=== PATIENT | female | born 1945 | race Caucasian/White ===

== ENCOUNTER → 2019-03-21 07:37 | Outpatient (CLI) | payer MEDICARE, OTHER, SELFPAY | PROVIDERS: Visit Provider Family Medicine | DX: R19.7 Diarrhea, unspecified (principal) | CPT/HCPCS: 87015; 87045; 87272; 87329; 87899 ==

== ENCOUNTER → 2019-09-06 15:47 | Outpatient (CLI) | payer MEDICARE, OTHER, SELFPAY ==
[2019-09-10 19:11] LABS: COVID19 Sendout Not Detected (Not Detected)
== END ==
PROVIDERS: Visit Provider Physician Assistant
DX: R50.9 Fever, unspecified (principal)
CPT/HCPCS: 87635

== ENCOUNTER 2019-11-27 08:49 | Inpatient (IN) | payer MEDICARE, OTHER, SELFPAY ==
[2019-11-27] VITALS (46 sets, daily range): BP systolic 68–134; BP diastolic 43–83; PULSE 81–110; RESP 13–44; TEMP 36.4–38.6; O2SAT 88–97; BMI 29.5
--- NOTE | 2019-11-27 | DI.RAD.S_ITS ---
PROCEDURE: XR ABDOMEN 1V INDICATIONS: cystoscopy placement of right ureteral stent TECHNIQUE: One fluoroscopic view of the ureteral stent. COMPARISON: [facility], CT, CT ABDOMEN PELVIS W CON, 11/27/2019, 11:45. FINDINGS: Right ureteral stent in the region of the right renal pelvis. Kidney stone seen on prior CT is not identified. IMPRESSION: Fluoroscopic guidance for ureteral stent placement. Dictated by: Diego Kwong M.D. on 11/27/2019 at 20:19 Approved by: Diego Kwong M.D. on 11/27/2019 at 20:20
--- NOTE | 2019-11-27 08:54 | DI.RAD.S_ITS ---
PROCEDURE: XR CHEST 1V INDICATIONS: shortness of breath TECHNIQUE: One view of the chest was acquired. COMPARISON: [facility], , CHEST 1 VIEW, 09/17/2014, 15:12. FINDINGS: Surgical changes and devices: None. Lungs and pleura: Lungs are clear. No pleural effusions or pneumothorax. Mediastinum: Mediastinal contours appear normal. Heart size is normal. Bones and chest wall: No suspicious bony lesions. Overlying soft tissues appear unremarkable. IMPRESSION: No acute cardiopulmonary process is evident. Dictated by: Juan Underwood M.D. on 11/27/2019 at 9:11 Approved by: Juan Underwood M.D. on 11/27/2019 at 9:11
--- NOTE | 2019-11-27 08:59 | ED_ITS ---
HPI - SOB/Dyspnea General Chief Complaint: Upper Respiratory Symptoms Stated Complaint: Shortness of breath Time Seen by Provider: 11/27/19 08:53 Source: patient, family and EMS Mode of arrival: EMS Limitations: altered mental status History of Present Illness HPI Narrative: Patient is a 74-year-old female who presents with shortness of breath and altered mental status. She has a history of asthma and she says he art disease. She apparently is face time with family this morning noticed that she had a change in mental status and was shaking all over and had a hard time breathing. EMS was able to give her some albuterol which it did help. She is able answer some questions but does seem to be a little out of it. 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 I have spoken with family and her DPOA EMS also took a picture of her POLST, which shows comfort measures only and DNR. I discussed with family they state that she definitely does not want any sort of help breathing including BiPAP and oxygen only for comfort as needed. They think she had covid in September she had all the symptoms but tested negative. And she was seen at [facility] ago Complaint: shortness of breath Related Data Home Medications Medication Instructions Recorded Confirmed [COQ10] 1 tab PO DAILY #0 09/07/16 11/27/19 duloxetine 60 mg PO QDAY #0 09/07/16 11/27/19 amlodipine 5 mg tablet 5 mg PO DAILY 09/06/19 11/27/19 duloxetine 60 mg capsule,delayed 60 mg PO DAILY 09/06/19 11/27/19 release meloxicam 15 mg disintegrating 15 mg PO DAILY 09/06/19 11/27/19 tablet pantoprazole 40 mg tablet,delayed 40 mg PO DAILY 09/06/19 11/27/19 release rosuvastatin 10 mg tablet 10 mg PO .COMPLEX 09/06/19 11/27/19 Allergies Allergy/AdvReac Type Severity Reaction Status Date / Time Penicillins Allergy Unknown UNK Verified 11/27/19 15:47 procaine [From Novocain] Allergy Unknown JITTERS Verified 11/27/19 15:47 Review of Systems Review of Systems ROS Unobtainable: Unobtainable due to medical condition Patient History Social History household members: none Smoking Status: Never smoker alcohol intake: never Smoking Status: Never smoker Exam Initial Vital Signs Initial Vital Signs: Vital Signs Temperature 101.5 F H 11/27/19 08:50 Pulse Rate 110 H 11/27/19 08:50 Respiratory Rate 44 H 11/27/19 08:50 Blood Pressure 134/73 11/27/19 08:50 Pulse Oximetry 96 11/27/19 08:50 GENERAL: Somnolent female but responsive to voice able to answer some simple questions HEENT: Head atraumatic,EOMI, pupils reactive, face symmetric, moist mucous membranes CARDIOVASCULAR: Regular rate and rhythm without murmurs, rubs or gallops. RESPIRATORY: Breath sounds equal bilaterally, no wheezes rales or rhonchi. ABDOMEN: Soft, mild tenderness in right lower quadrant EXTREMITIES: Normal range of motion, no clubbing or edema. Neurovascularly intact NEUROLOGICAL: Alert special education professor strength equal bilaterally moving all extremities SKIN: Warm, dry, no laceration, no petechiae, no rashes or lesions. Course Orders Ordered: ED Orders 11/27/19 08:53 Consult to Respiratory Therapy Evaluate & Treat EKG-12 Lead Stat 11/27/19 08:54 XR chest 1V Stat 11/27/19 09:11 CT head/brain wo con Stat 11/27/19 09:13 Arterial Blood Gas Stat 11/27/19 09:20 Blood Culture Stat Complete Blood Count AUTO DIFF Stat Comprehensive Metabolic Panel Stat Lactate (Lactic Acid) Stat Magnesium Stat NT-proBNP (BNP-Adult 18+) Stat Partial Thromboplastin Time Stat Procalcitonin Stat Prothrombin Time INR Stat Troponin & CK Cardiac Panel Stat 11/27/19 09:22 Urinalysis and Microscopic Stat Urine Culture Stat 11/27/19 09:25 Lipase Stat 11/27/19 11:47 CT abdomen pelvis w con Stat 11/27/19 14:32 Lactate (Lactic Acid) Stat 11/27/19 14:48 Education, smoking cessation ONGOING Artificial Tears (Artificial Tears) 1 drops EYE-BOTH Q2HR PRN PRN Reason: Dry Eye(s) Piperacillin/Tazobactam/Dextrose (Zosyn) 3.375 gm in 50 mls @ 100 mls/hr IV NOW ONE Stop: 11/27/19 17:44 Lorazepam (Ativan) 1 mg IV Q1HR PRN PRN Reason: Agitation/Anxiety Morphine Sulfate (Morphine) 2 mg IV Q30MIN PRN PRN Reason: Pain/Dyspnea Naloxone HCl (Narcan) 0.2 mg IV Q2MIN PRN PRN Reason: Opiate Reversal Ondansetron HCl (Zofran) 4 mg IV Q4HR PRN PRN Reason: Nausea And Vomiting Scopolamine (Transderm-Scop) 1 patch TOP Q72H PRN PRN Reason: Secretions Discontinued Medications Acetaminophen (Tylenol) 650 mg CA NOW ONE Stop: 11/27/19 09:32 Last Admin: 11/27/19 09:39 Dose: 650 mg Documented by: FREDERIC Albuterol (Ventolin Hfa Prepack) 1 box MISC SEEINSTR ONE Stop: 11/27/19 09:01 Last Admin: 11/27/19 09:39 Dose: Not Given Documented by: FREDERIC Albuterol (Ventolin Hfa (Vent/Covid R/O)) 2 puff INH NOW ONE Stop: 11/27/19 09:05 Last Admin: 11/27/19 09:40 Dose: 2 puff Documented by: FREDERIC Furosemide (Lasix) 20 mg IV NOW ONE Stop: 11/27/19 10:09 Last Admin: 11/27/19 10:31 Dose: 20 mg Documented by: DONNA Hydromorphone HCl (Dilaudid) 1 mg IV NOW ONE Stop: 11/27/19 13:31 Last Admin: 11/27/19 13:38 Dose: 1 mg Documented by: FREDERIC Sodium Chloride (Normal Saline 0.9%) 1,000 mls @ 1,000 mls/hr IV BOLUS ONE Stop: 11/27/19 10:30 Last Infusion: 11/27/19 14:57 Dose: 0 mls/hr Documented by: Infusion: 11/27/19 10:11 Dose: 125 mls/hr Documented by: Admin: 11/27/19 09:39 Dose: 1,000 mls/hr Documented by: FREDERIC Ceftriaxone Sodium/Dextrose (Rocephin) 2 gm in 50 mls @ 100 mls/hr IV NOW ONE Stop: 11/27/19 10:37 Last Admin: 11/27/19 10:32 Dose: Not Given Documented by: DONNA Piperacillin/Tazobactam/Dextrose (Zosyn) 3.375 gm in 50 mls @ 100 mls/hr IV NOW ONE Stop: 11/27/19 10:53 Last Infusion: 11/27/19 11:12 Dose: 0 mls/hr Documented by: Admin: 11/27/19 10:31 Dose: 100 mls/hr Documented by: DONNA Vancomycin HCl/Dextrose (Vancomycin) 1,500 mg in 300 mls @ 200 mls/hr IV NOW ONE Stop: 11/27/19 11:53 Last Infusion: 11/27/19 13:43 Dose: 0 mls/hr Documented by: Admin: 11/27/19 11:44 Dose: 200 mls/hr Documented by: FREDERIC Sodium Chloride (Normal Saline 0.9%) 1,000 mls @ 1,000 mls/hr IV BOLUS ONE Stop: 11/27/19 11:26 Last Infusion: 11/27/19 11:51 Dose: 0 mls/hr Documented by: Admin: 11/27/19 10:31 Dose: 1,000 mls/hr Documented by: DONNA Sodium Chloride (Normal Saline 0.9%) 2,638.56 mls @ 879.52 mls/hr 30 ml/kg infuse over 3 hr (2638.56 ml) IV NOW ONE Stop: 11/27/19 15:03 Last Infusion: 11/27/19 13:41 Dose: 0 mls/hr Documented by: Admin: 11/27/19 12:22 Dose: 879.52 mls/hr Documented by: FREDERIC Sodium Chloride (Normal Saline 0.9%) 1,000 mls @ 1,000 mls/hr IV BOLUS ONE Stop: 11/27/19 15:30 Last Infusion: 11/27/19 15:37 Dose: 0 mls/hr Documented by: Admin: 11/27/19 14:40 Dose: 1,000 mls/hr Documented by: DONNA Morphine Sulfate (Morphine) 4 mg IV NOW ONE Stop: 11/27/19 11:33 Last Admin: 11/27/19 11:37 Dose: 4 mg Documented by: FREDERIC Vital Signs Vital signs: Vital Signs - 8 hr 11/27/19 09:39 11/27/19 10:09 11/27/19 10:15 Temperature 101.5 F H Pulse Rate 101 H 100 H Respiratory Rate 28 H 28 H Blood Pressure 126/58 L Pulse Oximetry 96 96 11/27/19 10:30 11/27/19 10:45 11/27/19 11:00 Temperature Pulse Rate 100 H 97 H 93 H Respiratory Rate 28 H 26 H 34 H Blood Pressure 110/56 L 112/57 L 107/83 Pulse Oximetry 95 94 11/27/19 11:15 11/27/19 11:30 11/27/19 11:45 Temperature Pulse Rate 90 89 87 Respiratory Rate 32 H 31 H 31 H Blood Pressure 108/54 L 103/57 L 103/55 L Pulse Oximetry 96 90 L 97 11/27/19 11:51 11/27/19 12:01 11/27/19 12:15 Temperature 99.8 F H Pulse Rate 84 87 Respiratory Rate 24 23 Blood Pressure 97/55 L 93/50 L Pulse Oximetry 96 95 11/27/19 12:30 11/27/19 12:44 11/27/19 12:45 Temperature Pulse Rate 88 90 88 Respiratory Rate 23 29 H 29 H Blood Pressure 84/50 L 93/44 L 97/49 L Pulse Oximetry 95 91 97 11/27/19 13:00 11/27/19 13:15 11/27/19 13:30 Temperature Pulse Rate 87 86 85 Respiratory Rate 28 H 29 H 27 H Blood Pressure 87/52 L 92/55 L 79/48 L Pulse Oximetry 96 96 95 11/27/19 13:45 11/27/19 14:00 11/27/19 14:15 Temperature Pulse Rate 83 84 85 Respiratory Rate 20 20 23 Blood Pressure 84/52 L 93/50 L 88/52 L Pulse Oximetry 94 93 94 11/27/19 14:30 11/27/19 14:45 11/27/19 15:00 Temperature Pulse Rate 85 84 82 Respiratory Rate 23 22 18 Blood Pressure 81/46 L 81/49 L 77/44 L Pulse Oximetry 94 94 94 MDM - SOB/Dyspnea Lab Data Attestation: I reviewed the patient's lab results. Result diagrams: 11/27/19 09:20 11/27/19 09:20 Labs: Lab Results 11/27/19 11/27/19 11/27/19 Range/Units 08:53 09:13 09:20 WBC 8.6 (4.5-11.0) X10^3/uL RBC 5.39 H (4.0-5.2) X10^6/uL Hgb 15.1 (12.0-16.0) g/dL Hct 46.6 H (36-46) % MCV 86.5 (80-100) fL MCH 28.1 (26-34) PG MCHC 32.5 (30-36) % RDW 15.6 H (11.6-14.8) % Plt Count 218 (150-400) X10^3/uL Neut % (Auto) 89.7 H (50-75) % Lymph % (Auto) 9.4 L (25-40) % [place] % (Auto) 0.6 L (3-14) % Eos % (Auto) 0.1 L (2-4) % Baso % (Auto) 0.2 (0-2) % Neut # (Auto) 7700 H (3272-1827) /uL Lymph # (Auto) 800 L (4845-0353) /uL [place] # (Auto) 0 (0-900) /uL Eos # (Auto) 0 (0-450) /uL Baso # (Auto) 0 (0-100) /uL PT (10.1-12.7) SECONDS INR (0.9-1.3) APTT (26.4-36.2) SECONDS ABG pH 7.41 (7.35-7.45) ABG pCO2 17.6 L* (35-45) mmHg ABG pO2 72 L (80-100) mmHg ABG HCO3 11 L (22-26) mmol/L ABG Total CO2 12 L (21-31) mmol/L ABG O2 Saturation 95 (95-100) % ABG Base Excess -13.0 L (-2-2) mmol/L FiO2 21 Sodium (137-145) mmol/L Potassium (3.4-5.1) mmol/L Chloride (98-107) mmol/L Carbon Dioxide (22-32) mmol/L BUN (7-17) mg/dL Creatinine (0.52-1.04) mg/dL Estimated GFR (>60) mL/min BUN/Creatinine Ratio (6-22) Glucose (80-110) mg/dL Lactate (0.7-2.1) mmol/L Calcium (8.4-10.2) mg/dL Magnesium (1.6-2.3) mg/dL Total Bilirubin (0.2-1.3) mg/dL AST (14-36) IU/L ALT (<35) IU/L Alkaline Phosphatase (38-126) U/L Total Creatine Kinase (30-135) U/L CK-MB (CK-2) CK-MB (CK-2) Rel Index Troponin I (0.01-0.034) ng/mL NT-Pro-B Natriuret Pep (<125) pg/mL Total Protein (6.3-8.2) g/dL Albumin (3.5-5.0) g/dL Globulin (1.7-4.1) g/dL Albumin/Globulin Ratio (1.0-2.8) Lipase (23-300) U/L Procalcitonin (<0.5) ng/mL Urine Color Urine Appearance Urine pH (4.5-8.0) Ur Specific [place] (1.000-1.035) Urine Protein (Negative) Urine Glucose (UA) (Negative) g/dL Urine Ketones (NEGATIVE) Urine Occult Blood (Negative) Urine Nitrate (Negative) Urine Bilirubin (NEGATIVE) Urine Urobilinogen (0.2) E.U./dL Ur Leukocyte Esterase (NEGATIVE) Urine RBC (0-5/HPF) Urine WBC (0-5/HPF) Ur Squamous Epith Cells (0-5/HPF) Urine Bacteria (None) Ur Culture Indicated? COVID-19 PCR Negative (Negative) 11/27/19 11/27/19 11/27/19 Range/Units 09:20 09:20 09:20 WBC (4.5-11.0) X10^3/uL RBC (4.0-5.2) X10^6/uL Hgb (12.0-16.0) g/dL Hct (36-46) % MCV (80-100) fL MCH (26-34) PG MCHC (30-36) % RDW (11.6-14.8) % Plt Count (150-400) X10^3/uL Neut % (Auto) (50-75) % Lymph % (Auto) (25-40) % [place] % (Auto) (3-14) % Eos % (Auto) (2-4) % Baso % (Auto) (0-2) % Neut # (Auto) (2000-3324) /uL Lymph # (Auto) (9426-2533) /uL [place] # (Auto) (0-900) /uL Eos # (Auto) (0-450) /uL Baso # (Auto) (0-100) /uL PT 12.6 (10.1-12.7) SECONDS INR 1.1 (0.9-1.3) APTT 33 (26.4-36.2) SECONDS ABG pH (7.35-7.45) ABG pCO2 (35-45) mmHg ABG pO2 (80-100) mmHg ABG HCO3 (22-26) mmol/L ABG Total CO2 (21-31) mmol/L ABG O2 Saturation (95-100) % ABG Base Excess (-2-2) mmol/L FiO2 Sodium 138 (137-145) mmol/L Potassium 3.6 (3.4-5.1) mmol/L Chloride 104 (98-107) mmol/L Carbon Dioxide 13 L (22-32) mmol/L BUN 38 H (7-17) mg/dL Creatinine 1.88 H (0.52-1.04) mg/dL Estimated GFR 26.2 L (>60) mL/min BUN/Creatinine Ratio 20.2 (6-22) Glucose 181 H (80-110) mg/dL Lactate (0.7-2.1) mmol/L Calcium 9.7 (8.4-10.2) mg/dL Magnesium 1.7 (1.6-2.3) mg/dL Total Bilirubin 1.4 H (0.2-1.3) mg/dL AST 103 H (14-36) IU/L ALT 62 H (<35) IU/L Alkaline Phosphatase 188 H (38-126) U/L Total Creatine Kinase 37 (30-135) U/L CK-MB (CK-2) TNP CK-MB (CK-2) Rel Index TNP Troponin I 0.033 (0.01-0.034) ng/mL NT-Pro-B Natriuret Pep 5220 H (<125) pg/mL Total Protein 6.7 (6.3-8.2) g/dL Albumin 4.0 (3.5-5.0) g/dL Globulin 2.7 (1.7-4.1) g/dL Albumin/Globulin Ratio 1.5 (1.0-2.8) Lipase (23-300) U/L Procalcitonin 38.81 H (<0.5) ng/mL Urine Color Urine Appearance Urine pH (4.5-8.0) Ur Specific [place] (1.000-1.035) Urine Protein (Negative) Urine Glucose (UA) (Negative) g/dL Urine Ketones (NEGATIVE) Urine Occult Blood (Negative) Urine Nitrate (Negative) Urine Bilirubin (NEGATIVE) Urine Urobilinogen (0.2) E.U./dL Ur Leukocyte Esterase (NEGATIVE) Urine RBC (0-5/HPF) Urine WBC (0-5/HPF) Ur Squamous Epith Cells (0-5/HPF) Urine Bacteria (None) Ur Culture Indicated? COVID-19 PCR (Negative) 11/27/19 11/27/19 11/27/19 Range/Units 09:20 09:22 09:25 WBC (4.5-11.0) X10^3/uL RBC (4.0-5.2) X10^6/uL Hgb (12.0-16.0) g/dL Hct (36-46) % MCV (80-100) fL MCH (26-34) PG MCHC (30-36) % RDW (11.6-14.8) % Plt Count (150-400) X10^3/uL Neut % (Auto) (50-75) % Lymph % (Auto) (25-40) % [place] % (Auto) (3-14) % Eos % (Auto) (2-4) % Baso % (Auto) (0-2) % Neut # (Auto) (0695-0165) /uL Lymph # (Auto) (8152-2161) /uL [place] # (Auto) (0-900) /uL Eos # (Auto) (0-450) /uL Baso # (Auto) (0-100) /uL PT (10.1-12.7) SECONDS INR (0.9-1.3) APTT (26.4-36.2) SECONDS ABG pH (7.35-7.45) ABG pCO2 (35-45) mmHg ABG pO2 (80-100) mmHg ABG HCO3 (22-26) mmol/L ABG Total CO2 (21-31) mmol/L ABG O2 Saturation (95-100) % ABG Base Excess (-2-2) mmol/L FiO2 Sodium (137-145) mmol/L Potassium (3.4-5.1) mmol/L Chloride (98-107) mmol/L Carbon Dioxide (22-32) mmol/L BUN (7-17) mg/dL Creatinine (0.52-1.04) mg/dL Estimated GFR (>60) mL/min BUN/Creatinine Ratio (6-22) Glucose (80-110) mg/dL Lactate 9.0 H* (0.7-2.1) mmol/L Calcium (8.4-10.2) mg/dL Magnesium (1.6-2.3) mg/dL Total Bilirubin (0.2-1.3) mg/dL AST (14-36) IU/L ALT (<35) IU/L Alkaline Phosphatase (38-126) U/L Total Creatine Kinase (30-135) U/L CK-MB (CK-2) CK-MB (CK-2) Rel Index Troponin I (0.01-0.034) ng/mL NT-Pro-B Natriuret Pep (<125) pg/mL Total Protein (6.3-8.2) g/dL Albumin (3.5-5.0) g/dL Globulin (1.7-4.1) g/dL Albumin/Globulin Ratio (1.0-2.8) Lipase 110 (23-300) U/L Procalcitonin (<0.5) ng/mL Urine Color [place] Urine Appearance Cloudy Urine pH 5.5 (4.5-8.0) Ur Specific [place] 1.020 (1.000-1.035) Urine Protein 2+ H (Negative) Urine Glucose (UA) Negative (Negative) g/dL Urine Ketones Trace H (NEGATIVE) Urine Occult Blood 3+ H (Negative) Urine Nitrate Negative (Negative) Urine Bilirubin Negative (NEGATIVE) Urine Urobilinogen 0.2 (0.2) E.U./dL Ur Leukocyte Esterase 1+ H (NEGATIVE) Urine RBC 10-30/hpf H (0-5/HPF) Urine WBC 10-30/hpf H (0-5/HPF) Ur Squamous Epith Cells 1-5 /hpf (0-5/HPF) Urine Bacteria Many (>30) H (None) Ur Culture Indicated? Specimen cultured COVID-19 PCR (Negative) 11/27/19 11/27/19 Range/Units 11:40 14:32 WBC (4.5-11.0) X10^3/uL RBC (4.0-5.2) X10^6/uL Hgb (12.0-16.0) g/dL Hct (36-46) % MCV (80-100) fL MCH (26-34) PG MCHC (30-36) % RDW (11.6-14.8) % Plt Count (150-400) X10^3/uL Neut % (Auto) (50-75) % Lymph % (Auto) (25-40) % [place] % (Auto) (3-14) % Eos % (Auto) (2-4) % Baso % (Auto) (0-2) % Neut # (Auto) (5891-8059) /uL Lymph # (Auto) (5854-3441) /uL [place] # (Auto) (0-900) /uL Eos # (Auto) (0-450) /uL Baso # (Auto) (0-100) /uL PT (10.1-12.7) SECONDS INR (0.9-1.3) APTT (26.4-36.2) SECONDS ABG pH (7.35-7.45) ABG pCO2 (35-45) mmHg ABG pO2 (80-100) mmHg ABG HCO3 (22-26) mmol/L ABG Total CO2 (21-31) mmol/L ABG O2 Saturation (95-100) % ABG Base Excess (-2-2) mmol/L FiO2 Sodium (137-145) mmol/L Potassium (3.4-5.1) mmol/L Chloride (98-107) mmol/L Carbon Dioxide (22-32) mmol/L BUN (7-17) mg/dL Creatinine (0.52-1.04) mg/dL Estimated GFR (>60) mL/min BUN/Creatinine Ratio (6-22) Glucose (80-110) mg/dL Lactate 5.9 H* 4.4 H* (0.7-2.1) mmol/L Calcium (8.4-10.2) mg/dL Magnesium (1.6-2.3) mg/dL Total Bilirubin (0.2-1.3) mg/dL AST (14-36) IU/L ALT (<35) IU/L Alkaline Phosphatase (38-126) U/L Total Creatine Kinase (30-135) U/L CK-MB (CK-2) CK-MB (CK-2) Rel Index Troponin I (0.01-0.034) ng/mL NT-Pro-B Natriuret Pep (<125) pg/mL Total Protein (6.3-8.2) g/dL Albumin (3.5-5.0) g/dL Globulin (1.7-4.1) g/dL Albumin/Globulin Ratio (1.0-2.8) Lipase (23-300) U/L Procalcitonin (<0.5) ng/mL Urine Color Urine Appearance Urine pH (4.5-8.0) Ur Specific [place] (1.000-1.035) Urine Protein (Negative) Urine Glucose (UA) (Negative) g/dL Urine Ketones (NEGATIVE) Urine Occult Blood (Negative) Urine Nitrate (Negative) Urine Bilirubin (NEGATIVE) Urine Urobilinogen (0.2) E.U./dL Ur Leukocyte Esterase (NEGATIVE) Urine RBC (0-5/HPF) Urine WBC (0-5/HPF) Ur Squamous Epith Cells (0-5/HPF) Urine Bacteria (None) Ur Culture Indicated? COVID-19 PCR (Negative) Imaging Data Chest x-ray: Radiologist's Impression: PROCEDURE: XR CHEST 1V INDICATIONS: shortness of breath TECHNIQUE: One view of the chest was acquired. COMPARISON: [facility], CHEST 1 VIEW, 09/17/2014, 15:12. FINDINGS: Surgical changes and devices: None. Lungs and pleura: Lungs are clear. No pleural effusions or pneumothorax. Mediastinum: Mediastinal contours appear normal. Heart size is normal. Bones and chest wall: No suspicious bony lesions. Overlying soft tissues appear unremarkable. IMPRESSION: No acute cardiopulmonary process is evident. Dictated by: Juan Underwood M.D. on 11/27/2019 at 9:11 CT scan - abdomen/pelvis: Radiologist's Impression: PROCEDURE: CT ABDOMEN PELVIS W CON INDICATIONS: right upper quad pain TECHNIQUE: After the administration of intravenous contrast, 5 mm thick sections acquired from the diaphragm to the symphysis. 5 mm coronal and sagittal reformats were acquired. For radiation dose reduction, the following was used: automated exposure control, adjustment of mA and/or kV according to patient size. COMPARISON: None. FINDINGS: Image quality: Excellent. ABDOMEN: Lung bases: Dependent atelectasis in posterior aspect of bilateral lung bases are seen.. Heart size is normal. Solid organs: Liver is normal in size . Moderate hepatic steatosis is seen. No discrete hepatic lesion. Gallbladder is within normal limits. Biliary system is non dilated. Pancreas enhances normally. Spleen is normal in size and enhancement. No adrenal nodules. There is prominence of right renal collecting system. 1.4 x 0.9 cm calcification is seen in the region of right UPJ most suggestive of intermittently obstructing right UPJ stone. Nonobstructing stone is seen in mid to lower pole of right kidney measures 5 mm in size. No left-sided renal stone or hydronephrosis. Bilateral ureters are normal in size. Peritoneum and bowel: There is no bowel obstruction. No gross abnormal bowel wall thickening. No free fluid or free air. Fecal stasis in the colon is seen extending to the rectum suggestive of fecal impaction. Nodes and vessels: No retroperitoneal or mesenteric adenopathy by size criteria. Aorta and inferior vena cava are normal in size. Miscellaneous: No ventral hernias. PELVIS: Genitourinary: George catheter is seen in a decompressed urinary bladder. Miscellaneous: No inguinal hernias or adenopathy. Bones: No suspicious bony lesions. No vertebral body compression fractures. IMPRESSION: 1. Finding is suggestive of intermittently obstructing right UPJ stone with mild to moderate right-sided hydronephrosis and perinephric fat stranding. Nonobstructing stone is also seen in right kidney. No left-sided renal stone or hydronephrosis. 2. George catheter in a decompressed urinary bladder. 3. Suggestion of constipation and fecal impaction. No abnormal bowel wall thickening. No free fluid or free air. 4. Hepatic steatosis. Dictated by: Nba Arreguin M.D. on 11/27/2019 at 12:20 CT scan - head: Radiologist's Impression: PROCEDURE: CT HEAD/BRAIN WO CON INDICATIONS: altered mental status TECHNIQUE: Noncontrast 4.5 mm thick angled axial sections acquired from the foramen magnum to the vertex, with coronal and sagittal reformats. For radiation dose reduction, the following was used: automated exposure control, adjustment of mA and/or kV according to patient size. COMPARISON: None. FINDINGS: Image quality: Excellent. CSF spaces: Basal cisterns are patent. No extra-axial fluid collections. Ve ntricles are normal in size and shape. Brain: No midline shift. No intracranial masses or hemorrhage. [place]-white matter interface is normal. Skull and face: Calvarium and visualized facial bones are intact, without suspicious lesions. Sinuses: There is an air-fluid level in the left maxillary sinus. The mastoids are clear. IMPRESSION: 1. No acute intracranial abnormalities. 2. Cerebral volume loss and chronic microvascular ischemic changes. 3. Right maxillary sinusitis. Dictated by: Calli Watson M.D. on 11/27/2019 at 9:45 Approved by: Calli Watson M.D. on 11/27/2019 at 9:47 MDM Narrative Medical decision making narrative: Patient initially not able to give much history or information I have spoken with her children including her son who is her DPOA who states that no aggressive measures are to be taken, however they agree for a workup. The patient is febrile Over the course of the emergency department patient mental status improves she still is unclear what has happened but she agrees and would like antibiotics and treatment. Upon reexamination her abdomen she does have some tenderness in the right lower quadrant CT is ordered. There was then some confusion with her children and patient decision was that she did not want anything done. Multiple conversations with patient and children, at this time patient states that she is attached to her grandkids in would like antibiotics and CT scan, all parties are in agreement with this plan. Dr. Rios consulted in regards to large septic kidney stone. Agrees to see patient patient needs a procedure in ureter stent. Family is updated on the patient's CT results and what patient needs. They are aware that if nothing is done and procedures not performed that infection remains and patient will . Patient's mental status again decreased, get the children discussed amongst themselves and have come to the conclusion the patient is to be made comfort measures only which is what her POLST form says. Patient is in and out of consciousness now and not as clear as previous. She has also been given pain medications to manage her pain from the kidney stone. At this time all measures will be stopped including IV fluids and antibiotics. Her pressure has decreased. Patient becomes very clear she remembers the conversation she had with her friend I discussed with her in front of her children the the procedure that wou ld need to be done to the best of my ability and have explained there is still chance of with the procedure and for sure without the procedure. At this time the patient states that she would like to continue with the procedure but does not want to be in a senior care, having sedation or pressors. Critical Care Time Critical Care Time Critical Care Time: Yes Total Critical Care Time: 45 Attestation: The high probability of a clinically significant, sudden or life threatening deterioration of the [cardiovascular] system(s) required my full and direct attention, intervention and personal management. The aggregate critical care time was [45] minutes. This time is in addition to time spent performing reported procedures but includes the following: [x] Data Review and interpretation [x] Patient assessment and monitoring of vital signs [x] Documentation [x] Medication orders and management Discharge Plan Departure Patient Disposition: Admitted As Inpatient Clinical Impression: Septic shock, Kidney stones, Acute UTI Discharge Date/Time: 11/27/19 15:39 Admit Date/Time: 11/27/19 15:05 Admit Provider: Lisbeth Padgett
--- NOTE | 2019-11-27 09:11 | DI.CT.S_ITS ---
PROCEDURE: CT HEAD/BRAIN WO CON INDICATIONS: altered mental status TECHNIQUE: Noncontrast 4.5 mm thick angled axial sections acquired from the foramen magnum to the vertex, with coronal and sagittal reformats. For radiation dose reduction, the following was used: automated exposure control, adjustment of mA and/or kV according to patient size. COMPARISON: None. FINDINGS: Image quality: Excellent. CSF spaces: Basal cisterns are patent. No extra-axial fluid collections. Ventricles are normal in size and shape. Brain: No midline shift. No intracranial masses or hemorrhage. Novak-white matter interface is normal. Skull and face: Calvarium and visualized facial bones are intact, without suspicious lesions. Sinuses: There is an air-fluid level in the left maxillary sinus. The mastoids are clear. IMPRESSION: 1. No acute intracranial abnormalities. 2. Cerebral volume loss and chronic microvascular ischemic changes. 3. Right maxillary sinusitis. Dictated by: Calli Waston M.D. on 11/27/2019 at 9:45 Approved by: Calli Watson M.D. on 11/27/2019 at 9:47
[2019-11-27 09:28] LABS: pH ABG 7.41 (7.35-7.45)
[2019-11-27 09:29] LABS: Fractionated Inspired Oxygen 21; HCO3 ABG 11 mmol/L (22-26); Oxygen Saturation ABG 95 % (95-100); PCO2 ABG 17.6 mmHg (35-45); PO2 ABG 72 mmHg (80-100); TCO2 ABG 12 mmol/L (21-31)
[2019-11-27 09:36] LABS: Appearance Urine UA CLOUDY; Bilirubin Urine UA NEGATIVE (NEGATIVE); Glucose Urine UA NEGATIVE (Negative); Ketones Urine UA TRACE (NEGATIVE); Leukocyte Esterase Urine UA 1+ (NEGATIVE); Nitrite Urine UA NEGATIVE (Negative); Occult Blood Urine UA 3+ (Negative); Protein Urine UA 2+ (Negative); Urobilinogen Urine UA 0.2 E.U./dL (0.2)
[2019-11-27 09:38] LABS: Add Manual Diff / Slide Review NO; Basophils Absolute Auto 0 /uL (0-100); Basophils Percent Auto 0.2 % (0-2); Eosinophils Absolute Auto 0 /uL (0-450); Eosinophils Percent Auto 0.1 % (2-4); Hematocrit 46.6 % (36-46); Hemoglobin 15.1 g/dL (12.0-16.0); Lymphocytes Absolute Auto 800 /uL (1100-4500); Lymphocytes Percent Auto 9.4 % (25-40); Mean Corpuscular HGB Conc 32.5 % (30-36); Mean Corpuscular Hemoglobin 28.1 PG (26-34); Mean Corpuscular Volume 86.5 fL (80-100); Monocytes Absolute Auto 0 /uL (0-900); Monocytes Percent Auto 0.6 % (3-14); Neutrophils Absolute Auto 7700 /uL (1500-7000); Neutrophils Percent Auto 89.7 % (50-75); Platelet Count 218 X10^3/uL (150-400); Red Blood Cell Count 5.39 X10^6/uL (4.0-5.2); Red Cell Distribution Width 15.6 % (11.6-14.8); White Blood Cell Count 8.6 X10^3/uL (4.5-11.0)
[2019-11-27] MEDS: SODIUM CHLORIDE 0.9% 1,000 ML 1000 ML IV ×3 (09:39→14:40)
[2019-11-27] MEDS: ACETAMINOPHEN 650 MG SUPP PR (09:39)
[2019-11-27] MEDS: ALBUTEROL HFA 200 PUFF/18 GM INH (COVID POS/VENT PTS) INH (09:40)
[2019-11-27 09:44] LABS: INR 1.1 (0.9-1.3); Prothrombin Time 12.6 SECONDS (10.1-12.7)
[2019-11-27 09:47] LABS: PTT Partial Thromboplastin Tim 33 SECONDS (26.4-36.2)
[2019-11-27 09:50] LABS: Color Urine UA Amber; pH Urine UA 5.5 (4.5-8.0)
[2019-11-27 09:51] LABS: Albumin Globulin Ratio 1.5 (1.0-2.8); Alkaline Phosphatase 188 U/L (38-126); Aspartate Aminotransferase 103 IU/L (14-36); BUN Creatinine Ratio 20.2 (6-22); Bilirubin Total 1.4 mg/dL (0.2-1.3); Blood Urea Nitrogen 38 mg/dL (7-17); Calcium 9.7 mg/dL (8.4-10.2); Carbon Dioxide 13 mmol/L (22-32); Chloride 104 mmol/L (98-107); Creatine Kinase 37 U/L (30-135); Estimated Glomerular Filt Rate 26.2 mL/min (>60); Globulin 2.7 g/dL (1.7-4.1); Glucose 181 mg/dL (80-110); HEMOLYSIS < 15 (0-50); Magnesium 1.7 mg/dL (1.6-2.3); Potassium 3.6 mmol/L (3.4-5.1); Sodium 138 mmol/L (137-145); Total Protein 6.7 g/dL (6.3-8.2)
[2019-11-27 09:57] LABS: Alanine Aminotransferase 62 IU/L (<35)
[2019-11-27 10:02] LABS: NT-proBNP (BNP-Adult 18+) 5220 pg/mL (<125); Troponin I 0.033 ng/mL (0.01-0.034)
[2019-11-27 10:05] LABS: Bacteria Urine Many (>30); Culture Indicated Urine Specimen Cultured; RBC Urine 10-30/HPF (0-5/HPF); Squamous Epithelial Cell Urine 1-5 /HPF (0-5/HPF); WBC Urine 10-30/HPF (0-5/HPF)
[2019-11-27 10:05] LABS: COVID19 -Nasal RAPID Negative (Negative)
--- NOTE | 2019-11-27 10:12 | PC.NURSE ---
Fluids decreased r/t BNP > 5000 however Lactate critical @ > 9. Provider is re-evaluating.
[2019-11-27 10:16] LABS: Procalcitonin 38.81 ng/mL (<0.5)
[2019-11-27] MEDS: FUROSEMIDE 20 MG/2 ML VIAL IV (10:31)
[2019-11-27] MEDS: PIPERACILLIN-TAZO 3.375 GM/50 ML FROZ.PIGGY IV (10:31)
[2019-11-27 11:29] LABS: Lipase 110 U/L (23-300)
[2019-11-27 11:31] LABS: Reflexed Lactate in 2 Hours Y
[2019-11-27] MEDS: MORPHINE 4 MG/ML INJ IV (11:37)
[2019-11-27] MEDS: VANCOMYCIN 1,500 MG/300 ML FROZ.PIGGY 200 MG IV (11:44)
--- NOTE | 2019-11-27 11:47 | DI.CT.S_ITS ---
PROCEDURE: CT ABDOMEN PELVIS W CON INDICATIONS: right upper quad pain TECHNIQUE: After the administration of intravenous contrast, 5 mm thick sections acquired from the diaphragm to the symphysis. 5 mm coronal and sagittal reformats were acquired. For radiation dose reduction, the following was used: automated exposure control, adjustment of mA and/or kV according to patient size. COMPARISON: None. FINDINGS: Image quality: Excellent. ABDOMEN: Lung bases: Dependent atelectasis in posterior aspect of bilateral lung bases are seen.. Heart size is normal. Solid organs: Liver is normal in size . Moderate hepatic steatosis is seen. No discrete hepatic lesion. Gallbladder is within normal limits. Biliary system is non dilated. Pancreas enhances normally. Spleen is normal in size and enhancement. No adrenal nodules. There is prominence of right renal collecting system. 1.4 x 0.9 cm calcification is seen in the region of right UPJ most suggestive of intermittently obstructing right UPJ stone. Nonobstructing stone is seen in mid to lower pole of right kidney measures 5 mm in size. No left-sided renal stone or hydronephrosis. Bilateral ureters are normal in size. Peritoneum and bowel: There is no bowel obstruction. No gross abnormal bowel wall thickening. No free fluid or free air. Fecal stasis in the colon is seen extending to the rectum suggestive of fecal impaction. Nodes and vessels: No retroperitoneal or mesenteric adenopathy by size criteria. Aorta and inferior vena cava are normal in size. Miscellaneous: No ventral hernias. PELVIS: Genitourinary: George catheter is seen in a decompressed urinary bladder. Miscellaneous: No inguinal hernias or adenopathy. Bones: No suspicious bony lesions. No vertebral body compression fractures. IMPRESSION: 1. Finding is suggestive of intermittently obstructing right UPJ stone with mild to moderate right-sided hydronephrosis and perinephric fat stranding. Nonobstructing stone is also seen in right kidney. No left-sided renal stone or hydronephrosis. 2. George catheter in a decompressed urinary bladder. 3. Suggestion of constipation and fecal impaction. No abnormal bowel wall thickening. No free fluid or free air. 4. Hepatic steatosis. Dictated by: Nba Arreguin M.D. on 11/27/2019 at 12:20 Approved by: Nba Arreguin M.D. on 11/27/2019 at 12:24
--- NOTE | 2019-11-27 11:52 | PC.NURSE ---
Long discussion with son Marco Antonio and daughter via facetime w/ patient. Pt has a long history of discussing advanced directives with her children and have always said that she did not want any supportive care including iv antibiotics. Pt has fluctuated on her wishes regarding antibiotics first telling doctor that she would accept abx, then saying I don't care...I'm just so tired. Dr. Phillip to bedside to further discuss and clarify wishes. Pt states she will accept abx and CT at this time. Pt and family are fully aware that pt can change her mind at any time. Given morphine for pain control.
[2019-11-27 12:04] LABS: Lactate 2HR (Lactic Acid Rflx) 5.9 mmol/L (0.7-2.1)
[2019-11-27] MEDS: SODIUM CHLORIDE 0.9% 879.52 ML IV (12:22)
--- NOTE | 2019-11-27 12:23 | PC.NURSE ---
Further discussion with children Marco Antonio & Shruthi. Questions answered, support given. Both children plan on traveling here.
[2019-11-27] MEDS: HYDROMORPHONE 1 MG INJ IV (13:38)
--- NOTE | 2019-11-27 13:42 | PC.NURSE ---
Pt received 30 cc/kg NS in total volume infused at this time.
[2019-11-27 14:58] LABS: Lactate (Lactic Acid) 4.4 mmol/L (0.7-2.1)
--- NOTE | 2019-11-27 15:45 | PC.NURSE ---
spoke w/ son Marco Antonio and updated on pt transfer to OR area.
[2019-11-27 16:41] LABS: Reflexed Lactate in 2 Hours Y
[2019-11-27] MEDS: SODIUM CHLORIDE 0.9% 500 ML 1000 ML IV (17:00)
--- NOTE | 2019-11-27 17:06 | SUR.HOLD ---
Addendum entered by Aminata Quiroga R.N. 11/27/19 17:22: Dr. Rios arrived to preop, updated on patient condition. All belongings taken up to room 226. Original Note: Patient remains hypotensive in preop (see chart for vitals printout). Placed in trendelenburg position. MAP between 55-62. Surgical and Preop leads (Marni and Bela) made aware of situation and condition of patient. Surgery delayed at this time. tour leader coordinated with malt house kiln operator and physicians to take patient up to ICU. Patient taken up to ICU on 3L O2 with nursing staff. Report given to receiving RN Tenisha. Patient left in ICU with receiving RN, float RN and RT at bedside.
--- NOTE | 2019-11-27 17:43 | PM.CN ---
History of Present Illness Consult details Date Patient Seen: 11/27/19 Time Patient Seen: 17:43 Chief complaint: Shortness of breath Reason for consult: Urosepsis Requesting provider: Angi Phillip Narrative: 74-year-old white female presented to [facility] ED earlier this day with complaint of advancing shortness of breath. She has previous history of asthma. She had some type of respiratory a exacerbation in September 2019, but tested negative for COVID. She apparently was doing face time this morning with family members when it was noted that she was shaking and demonstrated mental status changes. This prompted her presentation to [facility]. CT KUB identified a 9 x 14 mm obstructing right ureteropelvic junction calculus. Presenting laboratories were reviewed or significant for elevated pro calcitonin, lactic acid, and urine consistent with infection. Urology consultation has been requested. Blood pressure since admission have been relatively low but supported with MAP currently around 67. Meds Home Medications and Allergies Home Medications Medication Instructions Recorded Confirmed Type [COQ10] 1 tab PO DAILY #0 09/07/16 11/27/19 History duloxetine 60 mg PO QDAY #0 09/07/16 11/27/19 History amlodipine 5 mg tablet 5 mg PO DAILY 09/06/19 11/27/19 History duloxetine 60 mg capsule,delayed 60 mg PO DAILY 09/06/19 11/27/19 History release meloxicam 15 mg disintegrating 15 mg PO DAILY 09/06/19 11/27/19 History tablet pantoprazole 40 mg tablet,delayed 40 mg PO DAILY 09/06/19 11/27/19 History release rosuvastatin 10 mg tablet 10 mg PO .COMPLEX 09/06/19 11/27/19 History Allergies Allergy/AdvReac Type Severity Reaction Status Date / Time Penicillins Allergy Unknown UNK Verified 11/27/19 15:47 procaine [From Novocain] Allergy Unknown JITTERS Verified 11/27/19 15:47 Review of Systems Review of Systems ROS: Yes unobtainable due to mental status Exam Vital Signs (past 8 hours): - 11/27/19 10:09 11/27/19 10:15 11/27/19 10:30 Temperature Pulse Rate 101 H 100 H 100 H Respiratory Rate 28 H 28 H 28 H Blood Pressure 126/58 L 110/56 L Pulse Oximetry 96 96 95 11/27/19 10:45 11/27/19 11:00 11/27/19 11:15 Temperature Pulse Rate 97 H 93 H 90 Respiratory Rate 26 H 34 H 32 H Blood Pressure 112/57 L 107/83 108/54 L Pulse Oximetry 94 96 11/27/19 11:30 11/27/19 11:45 11/27/19 11:51 Temperature 99.8 F H Pulse Rate 89 87 Respiratory Rate 31 H 31 H Blood Pressure 103/57 L 103/55 L Pulse Oximetry 90 L 97 11/27/19 12:01 11/27/19 12:15 11/27/19 12:30 Temperature Pulse Rate 84 87 88 Respiratory Rate 24 23 23 Blood Pressure 97/55 L 93/50 L 84/50 L Pulse Oximetry 96 95 95 11/27/19 12:44 11/27/19 12:45 11/27/19 13:00 Temperature Pulse Rate 90 88 87 Respiratory Rate 29 H 29 H 28 H Blood Pressure 93/44 L 97/49 L 87/52 L Pulse Oximetry 91 97 96 11/27/19 13:15 11/27/19 13:30 11/27/19 13:45 Temperature Pulse Rate 86 85 83 Respiratory Rate 29 H 27 H 20 Blood Pressure 92/55 L 79/48 L 84/52 L Pulse Oximetry 96 95 94 11/27/19 14:00 11/27/19 14:15 11/27/19 14:30 Temperature Pulse Rate 84 85 85 Respiratory Rate 20 23 23 Blood Pressure 93/50 L 88/52 L 81/46 L Pulse Oximetry 93 94 94 11/27/19 14:45 11/27/19 15:00 11/27/19 15:15 Temperature Pulse Rate 84 82 81 Respiratory Rate 22 18 17 Blood Pressure 81/49 L 77/44 L 75/49 L Pulse Oximetry 94 94 94 11/27/19 15:30 11/27/19 15:47 11/27/19 16:15 Temperature 98.2 F Pulse Rate 81 84 87 Respiratory Rate 23 24 21 Blood Pressure 84/52 L 82/45 L 97/49 L Pulse Oximetry 94 94 95 11/27/19 16:45 11/27/19 17:11 Temperature 98 F 98 F Pulse Rate 90 89 Respiratory Rate 22 24 Blood Pressure 97/51 L 85/51 L Pulse Oximetry 94 95 Oxygen Delivery Method Nasal Cannula Oxygen Flow Rate 3 Narrative Exam Narrative: She is a well-developed moderately obese white female lying in bed in at least in moderate distress mainly related to respiratory effort. She reports right flank and right upper quadrant pain. Head/neck skin is pink and warm and she is mildly diaphoretic. Sclerae are clear. No JVD or adenopathy. Chest-like crackles. No wheeze. Equal excursion bilaterally. Heart-rate is regular at about 90. Normal Abdomen-protuberant soft no guarding or rebound. Objective Labs Result Diagrams: 11/27/19 09:20 11/27/19 09:20 Labs: Laboratory Results - last 24 hr 11/27/19 11/27/19 11/27/19 08:53 09:13 09:20 WBC 8.6 RBC 5.39 H Hgb 15.1 Hct 46.6 H MCV 86.5 MCH 28.1 MCHC 32.5 RDW 15.6 H Plt Count 218 Neut % (Auto) 89.7 H Lymph % (Auto) 9.4 L [place] % (Auto) 0.6 L Eos % (Auto) 0.1 L Baso % (Auto) 0.2 Neut # (Auto) 7700 H Lymph # (Auto) 800 L [place] # (Auto) 0 Eos # (Auto) 0 Baso # (Auto) 0 PT INR APTT ABG pH 7.41 ABG pCO2 17.6 L* ABG pO2 72 L ABG HCO3 11 L ABG Total CO2 12 L ABG O2 Saturation 95 ABG Base Excess -13.0 L FiO2 21 Sodium Potassium Chloride Carbon Dioxide BUN Creatinine Estimated GFR BUN/Creatinine Ratio Glucose Lactate Calcium Magnesium Total Bilirubin AST ALT Alkaline Phosphatase Total Creatine Kinase CK-MB (CK-2) CK-MB (CK-2) Rel Index Troponin I NT-Pro-B Natriuret Pep Total Protein Albumin Globulin Albumin/Globulin Ratio Lipase Procalcitonin Urine Color Urine Appearance Urine pH Ur Specific [place] Urine Protein Urine Glucose (UA) Urine Ketones Urine Occult Blood Urine Nitrate Urine Bilirubin Urine Urobilinogen Ur Leukocyte Esterase Urine RBC Urine WBC Ur Squamous Epith Cells Urine Bacteria Ur Culture Indicated? COVID-19 PCR Negative 11/27/19 11/27/19 11/27/19 09:20 09:20 09:20 WBC RBC Hgb Hct MCV MCH MCHC RDW Plt Count Neut % (Auto) Lymph % (Auto) [place] % (Auto) Eos % (Auto) Baso % (Auto) Neut # (Auto) Lymph # (Auto) [place] # (Auto) Eos # (Auto) Baso # (Auto) PT 12.6 INR 1.1 APTT 33 ABG pH ABG pCO2 ABG pO2 ABG HCO3 ABG Total CO2 ABG O2 Saturation ABG Base Excess FiO2 Sodium 138 Potassium 3.6 Chloride 104 Carbon Dioxide 13 L BUN 38 H Creatinine 1.88 H Estimated GFR 26.2 L BUN/Creatinine Ratio 20.2 Glucose 181 H Lactate Calcium 9.7 Magnesium 1.7 Total Bilirubin 1.4 H AST 103 H ALT 62 H Alkaline Phosphatase 188 H Total Creatine Kinase 37 CK-MB (CK-2) TNP CK-MB (CK-2) Rel Index TNP Troponin I 0.033 NT-Pro-B Natriuret Pep 5220 H Total Protein 6.7 Albumin 4.0 Globulin 2.7 Albumin/Globulin Ratio 1.5 Lipase Procalcitonin 38.81 H Urine Color Urine Appearance Urine pH Ur Specific [place] Urine Protein Urine Glucose (UA) Urine Ketones Urine Occult Blood Urine Nitrate Urine Bilirubin Urine Urobilinogen Ur Leukocyte Esterase Urine RBC Urine WBC Ur Squamous Epith Cells Urine Bacteria Ur Culture Indicated? COVID-19 PCR 11/27/19 11/27/19 11/27/19 09:20 09:22 09:25 WBC RBC Hgb Hct MCV MCH MCHC RDW Plt Count Neut % (Auto) Lymph % (Auto) [place] % (Auto) Eos % (Auto) Baso % (Auto) Neut # (Auto) Lymph # (Auto) [place] # (Auto) Eos # (Auto) Baso # (Auto) PT INR APTT ABG pH ABG pCO2 ABG pO2 ABG HCO3 ABG Total CO2 ABG O2 Saturation ABG Base Excess FiO2 Sodium Potassium Chloride Carbon Dioxide BUN Creatinine Estimated GFR BUN/Creatinine Ratio Glucose Lactate 9.0 H* Calcium Magnesium Total Bilirubin AST ALT Alkaline Phosphatase Total Creatine Kinase CK-MB (CK-2) CK-MB (CK-2) Rel Index Troponin I NT-Pro-B Natriuret Pep Total Protein Albumin Globulin Albumin/Globulin Ratio Lipase 110 Procalcitonin Urine Color [place] Urine Appearance Cloudy Urine pH 5.5 Ur Specific [place] 1.020 Urine Protein 2+ H Urine Glucose (UA) Negative Urine Ketones Trace H Urine Occult Blood 3+ H Urine Nitrate Negative Urine Bilirubin Negative Urine Urobilinogen 0.2 Ur Leukocyte Esterase 1+ H Urine RBC 10-30/hpf H Urine WBC 10-30/hpf H Ur Squamous Epith Cells 1-5 /hpf Urine Bacteria Many (>30) H Ur Culture Indicated? Specimen cultured COVID-19 PCR 11/27/19 11/27/19 11:40 14:32 WBC RBC Hgb Hct MCV MCH MCHC RDW Plt Count Neut % (Auto) Lymph % (Auto) [place] % (Auto) Eos % (Auto) Baso % (Auto) Neut # (Auto) Lymph # (Auto) [place] # (Auto) Eos # (Auto) Baso # (Auto) PT INR APTT ABG pH ABG pCO2 ABG pO2 ABG HCO3 ABG Total CO2 ABG O2 Saturation ABG Base Excess FiO2 Sodium Potassium Chloride Carbon Dioxide BUN Creatinine Estimated GFR BUN/Creatinine Ratio Glucose Lactate 5.9 H* 4.4 H* Calcium Magnesium Total Bilirubin AST ALT Alkaline Phosphatase Total Creatine Kinase CK-MB (CK-2) CK-MB (CK-2) Rel Index Troponin I NT-Pro-B Natriuret Pep Total Protein Albumin Globulin Albumin/Globulin Ratio Lipase Procalcitonin Urine Color Urine Appearance Urine pH Ur Specific [place] Urine Protein Urine Glucose (UA) Urine Ketones Urine Occult Blood Urine Nitrate Urine Bilirubin Urine Urobilinogen Ur Leukocyte Esterase Urine RBC Urine WBC Ur Squamous Epith Cells Urine Bacteria Ur Culture Indicated? COVID-19 PCR Assessment & Plan Assessment & Plan narrative: Assessment: 1. Urosepsis. No current organism. She was given Zosyn following urine and blood samples for culture. Plan: 1. Schedule urgent CYSTOSCOPY/RIGHT URETERAL STENT PLACEMENT. Reviewed findings and has short discussion regarding impression. Explained indications for urgent internal diversion due to obstructing stone. She understands that without stent placement she has a very guarded prognosis on antibiotics and intravenous fluids. She had no further questions and wishes to proceed.
--- NOTE | 2019-11-27 17:54 | P.HP_ITS ---
History of Present Illness History of Present Illness Date Patient Seen: 11/27/19 Chief complaint: Shortness of breath Narrative: Araceli Myers is a 74-year-old female with a past medical history significant for hypertension, hyperlipidemia, asthma recently placed on prednisone, GERD, and de pression who presented to the ED with severe right flank pain and shortness of breath. The patient reports that she has had right flank pain last several days and thought it was her back. She reports that this pain has progressively worsened and was quite severe today. She also reports she began having fevers, chills, and rigors yesterday evening around 2100 that kept her up throughout the night and she was barely able to sleep. She also endorses urinary urgency over the last 1 week. She was recently started on prednisone on 11/23/19 for asthma exacerbation. She has no other complaints and denies headache, chest pain, abdominal pain, nausea, vomiting, dysuria, or diarrhea. She has decreased level of alertness but is arousable and responsive. In the ED, the patient was found to be septic and on the verge of septic shock. She had a lactic acidosis of 9.0 with a normal WBC of 8.6 and a procalcitonin of 38.81. CT abdomen and pelvis with contrast demonstrated right obstructive ur opathy. The patient has a POLST which indicates she is DNR/DNI and comfort measures only. The patient's family opted to honor these wishes and make her palliative care only, however, the patient became more awake and alert and able to indicate that she would want a surgical intervention if necessary to save her life and she is agreeable to IV fluids, IV antibiotics and vasopressors. The patient is firm on her code status of DNR/DNI. PCP is Alejandra Palencia in [place] Patient History Medical History (Updated 11/27/19 @ 18:11 by Lisbeth Padgett DO) Ankle fracture, left (Acute) Asthma (Acute) Depression (Acute) GERD (gastroesophageal reflux disease) (Acute) Hyperlipidemia (Acute) Hypertension (Acute) Osteoarthritis (Acute) Surgical History (Updated 11/27/19 @ 18:11 by Lisbeth Padgett DO) History of cataract removal with insertion of prosthetic lens (Acute) History of left inguinal hernia repair (Acute) History of tonsillectomy (Acute) Family & Social History Family History (Updated 11/27/19 @ 18:12 by Lisbeth Padgett DO) Mother Heart failure Father Heart attack Brother Heart attack Social History: household members none Prior Living Arrangements House Safety & Behavioral: Feels Safe in Current Yes Environment Been Physically Hurt or No Threatened By a Person Suicidal Ideation Description None Suicide Plan Description No Plan Tobacco & Substance use: Smoking Status Never smoker alcohol intake never Substance Use Type does not use Meds Home Medications and Allergies Home Medications Medication Instructions Recorded Confirmed Type [COQ10] 1 tab PO DAILY #0 09/07/16 11/27/19 History duloxetine 60 mg PO QDAY #0 09/07/16 11/27/19 History amlodipine 5 mg tablet 5 mg PO DAILY 09/06/19 11/27/19 History duloxetine 60 mg capsule,delayed 60 mg PO DAILY 09/06/19 11/27/19 History release meloxicam 15 mg disintegrating 15 mg PO DAILY 09/06/19 11/27/19 History tablet pantoprazole 40 mg tablet,delayed 40 mg PO DAILY 09/06/19 11/27/19 History release rosuvastatin 10 mg tablet 10 mg PO .COMPLEX 09/06/19 11/27/19 History prednisone 10 mg PO DAILY 11/27/19 11/27/19 History Allergies Allergy/AdvReac Type Severity Reaction Status Date / Time Penicillins Allergy Unknown UNK Verified 11/27/19 15:47 procaine [From Novocain] Allergy Unknown JITTERS Verified 11/27/19 15:47 Review of Systems Review of Systems Narrative: A 10 system comprehensive review of systems was conducted with the patient and found to be negative except as above in the History of Present Illness. Exam Vital Signs (past 8 hours): - 11/27/19 10:09 11/27/19 10:15 11/27/19 10:30 Temperature Pulse Rate 101 H 100 H 100 H Respiratory Rate 28 H 28 H 28 H Blood Pressure 126/58 L 110/56 L Pulse Oximetry 96 96 95 11/27/19 10:45 11/27/19 11:00 11/27/19 11:15 Temperature Pulse Rate 97 H 93 H 90 Respiratory Rate 26 H 34 H 32 H Blood Pressure 112/57 L 107/83 108/54 L Pulse Oximetry 94 96 11/27/19 11:30 11/27/19 11:45 11/27/19 11:51 Temperature 99.8 F H Pulse Rate 89 87 Respiratory Rate 31 H 31 H Blood Pressure 103/57 L 103/55 L Pulse Oximetry 90 L 97 11/27/19 12:01 11/27/19 12:15 11/27/19 12:30 Temperature Pulse Rate 84 87 88 Respiratory Rate 24 23 23 Blood Pressure 97/55 L 93/50 L 84/50 L Pulse Oximetry 96 95 95 11/27/19 12:44 11/27/19 12:45 11/27/19 13:00 Temperature Pulse Rate 90 88 87 Respiratory Rate 29 H 29 H 28 H Blood Pressure 93/44 L 97/49 L 87/52 L Pulse Oximetry 91 97 96 11/27/19 13:15 11/27/19 13:30 11/27/19 13:45 Temperature Pulse Rate 86 85 83 Respiratory Rate 29 H 27 H 20 Blood Pressure 92/55 L 79/48 L 84/52 L Pulse Oximetry 96 95 94 11/27/19 14:00 11/27/19 14:15 11/27/19 14:30 Temperature Pulse Rate 84 85 85 Respiratory Rate 20 23 23 Blood Pressure 93/50 L 88/52 L 81/46 L Pulse Oximetry 93 94 94 11/27/19 14:45 11/27/19 15:00 11/27/19 15:15 Temperature Pulse Rate 84 82 81 Respiratory Rate 22 18 17 Blood Pressure 81/49 L 77/44 L 75/49 L Pulse Oximetry 94 94 94 11/27/19 15:30 11/27/19 15:47 11/27/19 16:15 Temperature 98.2 F Pulse Rate 81 84 87 Respiratory Rate 23 24 21 Blood Pressure 84/52 L 82/45 L 97/49 L Pulse Oximetry 94 94 95 11/27/19 16:45 11/27/19 17:11 Temperature 98 F 98 F Pulse Rate 90 89 Respiratory Rate 22 24 Blood Pressure 97/51 L 85/51 L Pulse Oximetry 94 95 Oxygen Delivery Method Nasal Cannula Oxygen Flow Rate 3 Narrative Exam Narrative: General: Elderly female lying in bed and in no acute distress, somnolent and difficult to maintain arousal, when alert she is appropriately interactive. HEENT: Normocephalic, atraumatic. External ears without defect. Pupils equal, round, and reactive to light. Anicteric sclerae, moist conjunctivae, and no lid lag. Oropharynx free of erythema and cobble stoning with moist mucosa. Neck: Supple with full range of motion. No jugular venous distension. No lymphadenopathy or thyromegaly. Cardiovascular: Regular rate and rhythm without murmurs, rubs, or gallops appreciated. Pulmonary: Clear to auscultation bilaterally without crackles, wheezes, or rhonchi. Mild tachypnea with mild use of accessory muscles. Abdomen: Soft, right-sided flank tenderness to palpation, mild to moderate distention. No hepatosplenomegaly or masses appreciated. Extremities: No clubbing, cyanosis, or edema. Distal extremities cold to touch. Skin: Normal temperature, turgor, and texture; no rash, ulcers, or subcutaneous nodules appreciated. Neurological: Cranial nerves grossly intact. Objective Labs Result Diagrams: 11/27/19 09:20 11/27/19 09:20 Labs: Laboratory Results - last 24 hr 11/27/19 11/27/19 11/27/19 08:53 09:13 09:20 WBC 8.6 RBC 5.39 H Hgb 15.1 Hct 46.6 H MCV 86.5 MCH 28.1 MCHC 32.5 RDW 15.6 H Plt Count 218 Neut % (Auto) 89.7 H Lymph % (Auto) 9.[address] [place] % (Auto) 0.6 L Eos % (Auto) 0.1 L Baso % (Auto) 0.2 Neut # (Auto) 7700 H Lymph # (Auto) [address] [place] # (Auto) 0 Eos # (Auto) 0 Baso # (Auto) 0 PT INR APTT ABG pH 7.41 ABG pCO2 17.6 L* ABG pO2 72 L ABG HCO3 11 L ABG Total CO2 12 L ABG O2 Saturation 95 ABG Base Excess -13.0 L FiO2 21 Sodium Potassium Chloride Carbon Dioxide BUN Creatinine Estimated GFR BUN/Creatinine Ratio Glucose Lactate Calcium Magnesium Total Bilirubin AST ALT Alkaline Phosphatase Total Creatine Kinase CK-MB (CK-2) CK-MB (CK-2) Rel Index Troponin I NT-Pro-B Natriuret Pep Total Protein Albumin Globulin Albumin/Globulin Ratio Lipase Procalcitonin Urine Color Urine Appearance Urine pH Ur Specific [place] Urine Protein Urine Glucose (UA) Urine Ketones Urine Occult Blood Urine Nitrate Urine Bilirubin Urine Urobilinogen Ur Leukocyte Esterase Urine RBC Urine WBC Ur Squamous Epith Cells Urine Bacteria Ur Culture Indicated? COVID-19 PCR Negative 11/27/19 11/27/19 11/27/19 09:20 09:20 09:20 WBC RBC Hgb Hct MCV MCH MCHC RDW Plt Count Neut % (Auto) Lymph % (Auto) [place] % (Auto) Eos % (Auto) Baso % (Auto) Neut # (Auto) Lymph # (Auto) [place] # (Auto) Eos # (Auto) Baso # (Auto) PT 12.6 INR 1.1 APTT 33 ABG pH ABG pCO2 ABG pO2 ABG HCO3 ABG Total CO2 ABG O2 Saturation ABG Base Excess FiO2 Sodium 138 Potassium 3.6 Chloride 104 Carbon Dioxide 13 L BUN 38 H Creatinine 1.88 H Estimated GFR 26.2 L BUN/Creatinine Ratio 20.2 Glucose 181 H Lactate Calcium 9.7 Magnesium 1.7 Total Bilirubin 1.4 H AST 103 H ALT 62 H Alkaline Phosphatase 188 H Total Creatine Kinase 37 CK-MB (CK-2) TNP CK-MB (CK-2) Rel Index TNP Troponin I 0.033 NT-Pro-B Natriuret Pep 5220 H Total Protein 6.7 Albumin 4.0 Globulin 2.7 Albumin/Globulin Ratio 1.5 Lipase Procalcitonin 38.81 H Urine Color Urine Appearance Urine pH Ur Specific [place] Urine Protein Urine Glucose (UA) Urine Ketones Urine Occult Blood Urine Nitrate Urine Bilirubin Urine Urobilinogen Ur Leukocyte Esterase Urine RBC Urine WBC Ur Squamous Epith Cells Urine Bacteria Ur Culture Indicated? COVID-19 PCR 11/27/19 11/27/19 11/27/19 09:20 09:22 09:25 WBC RBC Hgb Hct MCV MCH MCHC RDW Plt Count Neut % (Auto) Lymph % (Auto) [place] % (Auto) Eos % (Auto) Baso % (Auto) Neut # (Auto) Lymph # (Auto) [place] # (Auto) Eos # (Auto) Baso # (Auto) PT INR APTT ABG pH ABG pCO2 ABG pO2 ABG HCO3 ABG Total CO2 ABG O2 Saturation ABG Base Excess FiO2 Sodium Potassium Chloride Carbon Dioxide BUN Creatinine Estimated GFR BUN/Creatinine Ratio Glucose Lactate 9.0 H* Calcium Magnesium Total Bilirubin AST ALT Alkaline Phosphatase Total Creatine Kinase CK-MB (CK-2) CK-MB (CK-2) Rel Index Troponin I NT-Pro-B Natriuret Pep Total Protein Albumin Globulin Albumin/Globulin Ratio Lipase 110 Procalcitonin Urine Color [place] Urine Appearance Cloudy Urine pH 5.5 Ur Specific [place] 1.020 Urine Protein 2+ H Urine Glucose (UA) Negative Urine Ketones Trace H Urine Occult Blood 3+ H Urine Nitrate Negative Urine Bilirubin Negative Urine Urobilinogen 0.2 Ur Leukocyte Esterase 1+ H Urine RBC 10-30/hpf H Urine WBC 10-30/hpf H Ur Squamous Epith Cells 1-5 /hpf Urine Bacteria Many (>30) H Ur Culture Indicated? Specimen cultured COVID-19 PCR 11/27/19 11/27/19 11:40 14:32 WBC RBC Hgb Hct MCV MCH MCHC RDW Plt Count Neut % (Auto) Lymph % (Auto) [place] % (Auto) Eos % (Auto) Baso % (Auto) Neut # (Auto) Lymph # (Auto) [place] # (Auto) Eos # (Auto) Baso # (Auto) PT INR APTT ABG pH ABG pCO2 ABG pO2 ABG HCO3 ABG Total CO2 ABG O2 Saturation ABG Base Excess FiO2 Sodium Potassium Chloride Carbon Dioxide BUN Creatinine Estimated GFR BUN/Creatinine Ratio Glucose Lactate 5.9 H* 4.4 H* Calcium Magnesium Total Bilirubin AST ALT Alkaline Phosphatase Total Creatine Kinase CK-MB (CK-2) CK-MB (CK-2) Rel Index Troponin I NT-Pro-B Natriuret Pep Total Protein Albumin Globulin Albumin/Globulin Ratio Lipase Procalcitonin Urine Color Urine Appearance Urine pH Ur Specific [place] Urine Protein Urine Glucose (UA) Urine Ketones Urine Occult Blood Urine Nitrate Urine Bilirubin Urine Urobilinogen Ur Leukocyte Esterase Urine RBC Urine WBC Ur Squamous Epith Cells Urine Bacteria Ur Culture Indicated? COVID-19 PCR Assessment & Plan Assessment & Plan narrative: Araceli Myers is a 74-year-old female with a past medical history significant for hypertension, hyperlipidemia, asthma recently placed on prednisone, GERD, and depression who presented to the ED with severe right flank pain and shortness of breath. 1. Acute severe sepsis, present on admission. Active. -Patient presented with tachycardia (HR 110), tachypnea (RR 28), febrile (T 101.5? F), WBC 8.6, lactate 9.0, procalcitonin 38.81 with end-organ dysfunction of acute kidney injury and hypotension responsive to IV fluids with source right-sided obstructive uropathy. -Early goal-directed therapy met including broad-spectrum IV antibiotics and IV fluids. -Continue to trend lactic acid until under 2.0. 2. Acute right-sided obstructive uropathy, present on admission. Active. -Patient presented with progressive worsening right-sided flank pain, fever, chills, rigors, and shortness of breath. -CT abdomen and pelvis with contrast demonstrated obstructing right UPJ stone with mild to moderate right-sided hydronephrosis and perinephric fat stranding and non-obstructing stone in right kidney. No left-sided renal stone or hydronephrosis. -EKG demonstrated sinus rhythm with right bundle branch block and no previous comparison available. Continue to monitor closely on telemetry. Continue monitor electrolytes and replete as necessary given amount of IV fluid resuscitation. -Initial WBC 8.6 and procalcitonin 38.81. Continue to monitor WBC and procalcitonin daily. -Blood cultures x2 and urine culture pending. -Lactic acid elevated at 9.0 and trending down with treatment of acute infection and IV fluid resuscitation. -Received 3 L boluses of LR in ED. Ordered additional 500 cc bolus of normal saline x1. Low threshold to start Levophed if patient becomes fluid unresponsive or shows signs of fluid overload. -Received vancomycin with dosing per pharmacist and Zosyn 3.375 g IV x1 in ED. Continue Zosyn 3.375 g IV every 6 hours pending urine culture. -Consulted urology, Dr. Rios, who plans to take patient to the OR this afternoon for cystoscopy and ureteral stent placement. We appreciate his time and care of the patient. 3. Probable acute kidney injury, present on admission. Active. -Initial creatinine 1.88. Unclear baseline creatinine. -Avoid nephrotoxic agents. -Received 3 L boluses of LR in ED. Ordered additional 500 cc bolus of normal saline x1. Low threshold to start Levophed if patient becomes fluid unresponsive or shows signs of fluid overload. -Continue to monitor creatinine daily. 4. Mild transaminitis, acuity unclear but likely acute, present on admission. Active. -Likely secondary to biliary stasis of infection versus fatty liver disease as evident on CT. -Initial LFTs: Total bilirubin 1.4, AST 103, ALT 62 and alkaline phosphatase 188. -Continue to monitor LFTs daily. 5. Acute hypotension in setting of chronic hypertension, present on admission. Active. -Patient is hypotensive but fluid responsive due to sepsis and infection. Received 3 L boluses of LR in ED. Ordered additional 500 cc bolus of normal saline x1. Low threshold to start Levophed if patient becomes fluid unresponsive or shows signs of fluid overload. -Held home amlodipine 5 mg daily. 6. Asthma with recent exacerbation, acute on chronic, present on admission. Active. -Patient recently started on prednisone 10 mg daily for acute asthma exacerbation. Held glucocorticoids at this time given sepsis and infection. -ABG: PH 7.41, pCO2 17.6, PO2 72, HC03 11 SpO2 95% on room air. -Ordered respiratory therapy evaluation and treatment. Continue albuterol nebulizers every 2 hours as needed for shortness of breath or wheezing. -Continue supplemental oxygen as necessary to maintain oxygen saturations 88- 92%. Patient currently on 2 L of supplemental oxygen for comfort. 7. Constipation with fecal impaction, acute on chronic, present on admission. Active. -CT abdomen and pelvis with contrast demonstrated constipation and fecal impaction without abnormal bowel wall thickening, free fluid or free air. -Patient had BM upon arrival to floor. Plan to give suppository for residual stool in anal vault this evening postoperatively. -Ordered bowel regimen with MiraLax 17 g daily and Colace 100 mg twice daily. 8. Hyperlipidemia, chronic, present on admission. Stable. -Continue home rosuvastatin 10 mg daily. 9. GERD, chronic, present on admission. Stable. -Continue pantoprazole 40 mg daily. 10. Depression, chronic, present on admission. Stable. -Continue duloxetine 60 mg daily. Code status: DNR/DNI. Patient designates son Zhou Myers as surrogate decision maker and DPOA. VTE prophylaxis: SQ Heparin, SCDs Critical care time spent: 90 minutes Patient is admitted under inpatient status with expected length of stay greater than 2 midnights due to severity of presenting symptoms, risk of adverse event, and complexity of treatment plan. Quality VTE Deep Vein Thrombosis/Pulmonary Embolism Present on Admission: No
[2019-11-27] MEDS: MAGNESIUM SULFATE 2 GM/50 ML PIGGYBACK IV (18:12)
[2019-11-27] MEDS: ALBUTEROL 2.5 MG/3 ML NEB (ADULT) INH (18:16)
[2019-11-27] MEDS: LACTATED RINGERS 1,000 ML 42 ML IV (18:30)
[2019-11-27 18:40] LABS: Alanine Aminotransferase 38 IU/L (<35); Albumin 2.8 g/dL (3.5-5.0); Albumin Globulin Ratio 1.2 (1.0-2.8); Alkaline Phosphatase 93 U/L (38-126); Aspartate Aminotransferase 48 IU/L (14-36); BUN Creatinine Ratio 19.4 (6-22); Blood Urea Nitrogen 39 mg/dL (7-17); Calcium 7.6 mg/dL (8.4-10.2); Carbon Dioxide 15 mmol/L (22-32); Chloride 112 mmol/L (98-107); Estimated Glomerular Filt Rate 24.2 mL/min (>60); Globulin 2.3 g/dL (1.7-4.1); Glucose 126 mg/dL (80-110); HEMOLYSIS < 15 (0-50); Lactate (Lactic Acid) 3.6 mmol/L (0.7-2.1); Magnesium 1.7 mg/dL (1.6-2.3); Potassium 3.2 mmol/L (3.4-5.1); Sodium 138 mmol/L (137-145); Total Protein 5.1 g/dL (6.3-8.2)
--- NOTE | 2019-11-27 19:17 | SUR.OPER ---
Lithotomy on padded OR bed, head on pillow, arms secured on padded arm boards at <90 degrees abduction. Legs secured in padded yellow fins stirrups.
--- NOTE | 2019-11-27 19:29 | P.OP_ITS ---
Operative Date/Time/Diagnoses Date of procedure: 11/27/19 Time of procedure: 19:29 Pre-op diagnosis: Urosepsis Post-op diagnosis: same Procedure & Clinicians Procedure: 1. Cystoscopy and right ureteral stone manipulation without removal. 2. Cystoscopy and placement right ureteral stent (7 Greenlandic by 22-32 cm multi- length) Same procedure as scheduled: Yes Indications: 1. Urosepsis. 2. Obstructing right ureteropelvic junction calculus. Click Yes if Unassisted: Yes Anesthesia Type: General Operative Notes Findings: Urethra is associated with a moderate caruncle and atrophic vaginitis. Bladder-trace trabeculation. Moderate turbid debris within bladder. Normal- appearing orifices bilaterally. Cloudy obstructive efflux visualized following manipulation of the stone. Closure Type: not applicable Specimen(s): none sent Applied: catheter and other (7 x 22-32 cm multi-length ureteral stent.) Estimated Blood Loss (mL): 0 Blood products transfused: none Tourniquet time (min): 0 Procedure in detail: Patient was positioned supine was administered general anesthesia. She was then repositioned semi lithotomy in the lower abdomen genitalia and groin were prepped and draped in sterile fashion. The 22 Green[place]ic panendoscope was then advanced into the lower urinary tract with the findings as described above. Next a 0.35 guidewire was advanced into the right ureteral orifice and advanced proximally and coiled into the intrarenal collecting system under direct and fluoroscopic guidance. Next a 7 Green[place]ic by 22-32 cm multi-length stent was selected this was then advanced over the guidewire again under direct fluoroscopic guidance. NO RETRIEVAL LINE WAS LEFT ATTACHED. The bladder was then drained completely and the instrumentation was removed. A 16 Green[place]ic George catheter was then inserted and placed to gravity drainage. The patient was then repositioned in supine, was awakened, and was transferred to recovery in stable condition. Complications: none Post-operative Condition: stable Disposition: PACU Plan for aftercare: ICU
--- NOTE | 2019-11-27 19:54 | PC.NURSE ---
Addendum entered by Chetna Hancock R.N. 11/28/19 02:43: 0243 Critical lab value WBC 30.9, Dr. Sloan notified, discussed pt current vitals and status, no new orders at this time, will continue to monitor. Addendum entered by Chetna Hancock R.N. 11/28/19 01:56: 2000 Notified by PACU nurse that pt was ready to be transported back to ICU, arrived in PACU and noted that pt BP 74/38 with a MAP of 45, stayed in PACU while stabilizing pt, escorted pt back to ICU with PACU nurse, pt attached to portable monitor and in trendelenburg position. Pt arrived in ICU at 2044, connected to monitoring equipment. Vitals BP 97/51 HR 90 respirations 22 94% on 3L/NC. Oriented to room and call light system, able to make needs known, will continue to monitor closely. [address] Sloan on pt status, new orders for potassium replacement, critical lab value of Lactate 4.0 and labs ordered to repeat Lactate in 2 hours, these orders were received via verbal orders over phone and reviewed with MD per protocol. Will continue to monitor and update provider as needed. 0149 Pt stated she is having a hard time breathing and is having pain in her lungs, vitals BP 139/[address] Sloan notified, advised to turn off fluids at this time, as pt is probably fluid overloaded. Will continue to monitor. Addendum entered by Chetna Hancock R.N. 11/28/19 01:33: [address] Padgett at bedside, reviewing pt wishes for care, while answering pt questions regarding care options available. Pt states that she completed her POLST a long time ago and now that she is faced with being this sick she would like to be able to have more time to spend with her grandchildren. Dr. Padgett explained the possible need to use Levophed to support pt very soft blood pressures before, during and possibly after surgery. Pt was agreeable with this idea, but did not want any other life support measures. Dr. Rios now at bedside, explaining the surgical procedure, with risks and benefits, consent signed and witnessed by this nurse. 1835 Pt connected to portable monitor, oxygen tank, replacement magnesium infusing, and pt transported via bed by this nurse and float nurse Lisa. Report given to OR nurse, no further pt contact at this time. Original Note: 1648 Pt arrived from Pre-op area of OR, unable to keep pt there while waiting for OR to be available, pt BP (as noted by MARION Coates) too unstable. Pt brought to ICU for closer care while waiting. Pt brought to ICU via ED gurney, slide board used to move pt to bed, pt immediately connected to monitoring equipment, BP 97/51, HR 90, O2 94% on 3L NC and temp 97.9 temporally. Pt was then cleaned up, as she had a BM on the way here from OR. Dr. Padgett at bedside, discussing with pt her wishes, providing explanation of the currently surgical place.
[2019-11-27 20:22] LABS: Reflexed Lactate in 2 Hours Y
--- NOTE | 2019-11-27 21:03 | SUR.PHASEI ---
Patient continues to have labile blood pressures. Report given to receiving RN. Dr. Rubalcava updated on all blood pressures. Most recent two blood pressures with MAP >60. Order received to get patient up to ICU and assess need to start pressors or not. ICU has levophed ready in room for arrival if needed. All other vitals remain stable. Patient transported to ICU by VOCATIONAL TRAINER and receiving POWER BALLAST MACHINE OPERATOR on continuous monitor. On arrival to ICU blood pressure was systolic of 114. Patient remained oriented throughout, but tired. Placed on all monitors in ICU and left in stable condition with receiving RN at bedside.
[2019-11-27 22:22] LABS: HEMOLYSIS 17 (0-50); Potassium 3.5 mmol/L (3.4-5.1)
[2019-11-27] MEDS: LACTATED RINGERS 1,000 ML 125 ML IV (22:40)
[2019-11-27] MEDS: HYDROMORPHONE 0.5 MG INJ IV (22:42)
[2019-11-27] MEDS: POTASSIUM CHLORIDE 40 MEQ in SODIUM CHLORIDE 0.9% 500 ML 130 ML IV (23:31)
[2019-11-28] VITALS (15 sets, daily range): BP systolic 104–148; BP diastolic 54–77; PULSE 85–146; RESP 16–26; TEMP 36.3–36.9; O2SAT 90–97; BMI 29.4
--- NOTE | 2019-11-28 | DI.RAD.S_ITS ---
PROCEDURE: XR CHEST 1V INDICATIONS: Shortness of breath, Asthma, Pulmonary edema TECHNIQUE: One view of the chest was acquired. COMPARISON: [facility], CT, CT ABDOMEN PELVIS W CON, 11/27/2019, 11:45. [facility], CR, XR CHEST 1V, 11/27/2019, 9:22. [facility], CR, CHEST 1 VIEW, 09/17/2014, 15:12. FINDINGS: Surgical changes and devices: None. Lungs and pleura: Lungs are abnormal, with generalized alveolar edema pattern. No pleural effusions or pneumothorax. Mediastinum: Mediastinal contours appear normal. Heart size has slightly enlarged. Bones and chest wall: No suspicious bony lesions. Overlying soft tissues appear unremarkable. IMPRESSION: Generalized alveolar edema pattern, mild enlargement in the transverse dimension of the heart. Cardiogenic pulmonary edema may explain this appearance, but ARDS and immune mediated pneumonitis or inhalation injury also could produce this appearance. Dictated by: Blade Chappell M.D. on 11/28/2019 at 8:30 Approved by: Blade Chappell M.D. on 11/28/2019 at 8:31
[2019-11-28 00:36] LABS: Lactate (Lactic Acid) 3.7 mmol/L (0.7-2.1)
[2019-11-28 01:51] LABS: Enterococcus species Not Detected (Not Detect); Listeria monocytogenes Not Detected (Not Detect); Staphylococcus species Not Detected (Not Detect)
[2019-11-28 01:52] LABS: Acinetobacter baumannii Not Detected (Not Detect); Enterobacteriaceae species Detected (Not Detect); KPC (carbapenem-resist gene) Not Detected (Not Detect); Streptococcus agalactiae (Gr B Not Detected (Not Detect); Streptococcus pneumonia Not Detected (Not Detect); Streptococcus pyogenes (Gr A) Not Detected (Not Detect); Streptococcus species Not Detected (Not Detect)
[2019-11-28 01:53] LABS: Candida albicans Not Detected (Not Detect); Candida glabrata Not Detected (Not Detect); Candida krusei Not Detected (Not Detect); Candida parapsilosis Not Detected (Not Detect); Candida tropicalis Not Detected (Not Detect); E. coli Detected (Not Detect); Enterobacter cloacae complex Not Detected (Not Detect); Haemophilus influenzae Not Detected (Not Detect); Neisseria meningitidis Not Detected (Not Detect); Proteus species Not Detected (Not Detect); Pseudomonas aeruginosa Not Detected (Not Detect); Serratia marcescens Not Detected (Not Detect)
[2019-11-28] MEDS: ALBUTEROL 2.5 MG/3 ML NEB (ADULT) INH (01:57)
[2019-11-28 02:22] LABS: Reflexed Lactate in 2 Hours Y
[2019-11-28] MEDS: HYDROMORPHONE 0.5 MG INJ IV ×5 (02:26→21:12)
[2019-11-28 02:34] LABS: Hemoglobin 13.2 g/dL (12.0-16.0); Lactate 2HR (Lactic Acid Rflx) 3.3 mmol/L (0.7-2.1); Mean Corpuscular HGB Conc 31.3 % (30-36); Mean Corpuscular Hemoglobin 27.9 PG (26-34); Platelet Count 111 X10^3/uL (150-400); Red Blood Cell Count 4.72 X10^6/uL (4.0-5.2)
[2019-11-28 02:38] LABS: White Blood Cell Count 30.9 X10^3/uL (4.5-11.0)
[2019-11-28 02:39] LABS: Add Manual Diff / Slide Review YES
[2019-11-28 02:59] LABS: Alanine Aminotransferase 41 IU/L (<35); Albumin 3.1 g/dL (3.5-5.0); Albumin Globulin Ratio 1.2 (1.0-2.8); Alkaline Phosphatase 99 U/L (38-126); Aspartate Aminotransferase 49 IU/L (14-36); BUN Creatinine Ratio 23.3 (6-22); Bilirubin Total 0.8 mg/dL (0.2-1.3); Blood Urea Nitrogen 40 mg/dL (7-17); Calcium 7.9 mg/dL (8.4-10.2); Carbon Dioxide 15 mmol/L (22-32); Chloride 114 mmol/L (98-107); Globulin 2.5 g/dL (1.7-4.1); Glucose 143 mg/dL (80-110); HEMOLYSIS < 15 (0-50); Magnesium 2.2 mg/dL (1.6-2.3); Potassium 4.1 mmol/L (3.4-5.1); Sodium 140 mmol/L (137-145); Total Protein 5.6 g/dL (6.3-8.2)
[2019-11-28 03:14] LABS: Procalcitonin 51.22 ng/mL (<0.5)
[2019-11-28 03:39] LABS: Neutrophils Absolute Manual 26574 /uL (3000-5900); Total Cells Counted 100
[2019-11-28 03:45] LABS: Anisocytosis 1+
--- NOTE | 2019-11-28 06:13 | PC.NURSE ---
Addendum entered by Minnie Zuniga R.N. 11/28/19 15:19: pt with elevated hr mostly continuous 135-145bpm with what appears to afib- awaiting ekg confirmation- up to bs for small bm and continues to wax and wane with her mentation - Original Note: pt stable upon my arrival at 0300- introduced myself and per pt request allowed her to sleep- she denied pain at this time and repostitioned a bit later with staff assist, at approx 0525 pt became somewhat restless and stated that she'd like to sit up, assisted pt to edge of bed and then to chair, initially she felt dizzy but she reported that cleared - quinteros with adequate uop although somewhat cloudy saurabh colored urine, pt was assisted to recliner and medicated for pain , o2 decreased to 2l nc - also noted frequent pvc in her otherwise sr/sa rate in the 90's.
[2019-11-28] MEDS: PIPERACILLIN-TAZO 2.25 GM/50 ML FROZ.PIGGY IV (08:02)
[2019-11-28] MEDS: OXYCODONE IR 5 MG TABLET PO ×3 (08:02→19:48)
[2019-11-28] MEDS: DULOXETINE 30 MG CAPSULE 60 MG PO (08:03)
[2019-11-28] MEDS: PANTOPRAZOLE 40 MG TABLET PO (08:06)
--- NOTE | 2019-11-28 08:09 | P.PN_ITS ---
Subjective Subjective Date Patient Seen: 11/28/19 Time Patient Seen: 08:09 Interval history: Overall improved clinical coursing condition since operative placement of right ureteral stent last evening. She complains of right flank pain. She is sitting upright in a chair at the bedside. She is in [id number] distress. Preliminary cultures are indicating E coli. Sensitivities are still pending. Exam Vital Signs (past 8 hours): - 11/28/19 01:57 11/28/19 03:30 11/28/19 04:37 Temperature 98.1 F Pulse Rate 85 93 H 93 H Respiratory Rate 22 22 18 Blood Pressure 104/58 L 112/57 L Pulse Oximetry 95 96 95 11/28/19 06:12 11/28/19 07:51 Temperature Pulse Rate 97 H Respiratory Rate 24 Blood Pressure 139/67 Pulse Oximetry 93 95 Oxygen Delivery Method Nasal Cannula Oxygen Flow Rate 3 Narrative Exam Narrative: Abdomen is moderately obese, soft and there is tenderness in the right upper quadrant and flank. Objective Labs Result Diagrams: 11/28/19 02:18 11/28/19 02:18 Labs: Laboratory Results - last 24 hr 11/27/19 11/27/19 11/27/19 08:53 09:13 09:20 WBC 8.6 RBC 5.39 H Hgb 15.1 Hct 46.6 H MCV 86.5 MCH 28.1 MCHC 32.5 RDW 15.6 H Plt Count 218 Neut % (Auto) 89.7 H Lymph % (Auto) 9.4 L [place] % (Auto) 0.6 L Eos % (Auto) 0.1 L Baso % (Auto) 0.2 Neut # (Auto) 7700 H Lymph # (Auto) 800 L [place] # (Auto) 0 Eos # (Auto) 0 Baso # (Auto) 0 Total Counted Seg Neutrophils % Band Neutrophils % Lymphocytes % (Manual) Monocytes % (Manual) Eosinophils % (Manual) Metamyelocytes % Myelocytes % Neutrophils # (Manual) RBC Morphology Anisocytosis PT INR APTT ABG pH 7.41 ABG pCO2 17.6 L* ABG pO2 72 L ABG HCO3 11 L ABG Total CO2 12 L ABG O2 Saturation 95 ABG Base Excess -13.0 L FiO2 21 Sodium Potassium Chloride Carbon Dioxide BUN Creatinine Estimated GFR BUN/Creatinine Ratio Glucose Lactate Calcium Magnesium Total Bilirubin AST ALT Alkaline Phosphatase Total Creatine Kinase CK-MB (CK-2) CK-MB (CK-2) Rel Index Troponin I NT-Pro-B Natriuret Pep Total Protein Albumin Globulin Albumin/Globulin Ratio Lipase Procalcitonin Urine Color Urine Appearance Urine pH Ur Specific [place] Urine Protein Urine Glucose (UA) Urine Ketones Urine Occult Blood Urine Nitrate Urine Bilirubin Urine Urobilinogen Ur Leukocyte Esterase Urine RBC Urine WBC Ur Squamous Epith Cells Urine Bacteria Ur Culture Indicated? A. baumannii (PCR) Sammi albicans (PCR) C. glabrata (PCR) C. krusei (PCR) C. parapsilosis (PCR) C. tropicalis (PCR) COVID-19 PCR Negative Enterobacteriac sp PCR E. cloacae complex PCR Enterococcus sp PCR E. coli (PCR) H. influenzae (PCR) Klebsiella oxytoca PCR Klebsiella pneumoniae List. monocytogenes PCR N. meningitidis (PCR) Proteus species (PCR) Serratia marcescens PCR Staphylococcus sp PCR Staph aureus (PCR) mecA-Methicil Res Gene Streptococcus sp PCR Group A Strep (PCR) Strep agalactiae (PCR) Strep pneumoniae (PCR) P. aeruginosa (PCR) Felicitas/B-Vanco Res Genes KPC-Carbap Res Gene PCR 11/27/19 11/27/19 11/27/19 09:20 09:20 09:20 WBC RBC Hgb Hct MCV MCH MCHC RDW Plt Count Neut % (Auto) Lymph % (Auto) [place] % (Auto) Eos % (Auto) Baso % (Auto) Neut # (Auto) Lymph # (Auto) [place] # (Auto) Eos # (Auto) Baso # (Auto) Total Counted Seg Neutrophils % Band Neutrophils % Lymphocytes % (Manual) Monocytes % (Manual) Eosinophils % (Manual) Metamyelocytes % Myelocytes % Neutrophils # (Manual) RBC Morphology Anisocytosis PT 12.6 INR 1.1 APTT 33 ABG pH ABG pCO2 ABG pO2 ABG HCO3 ABG Total CO2 ABG O2 Saturation ABG Base Excess FiO2 Sodium 138 Potassium 3.6 Chloride 104 Carbon Dioxide 13 L BUN 38 H Creatinine 1.88 H Estimated GFR 26.2 L BUN/Creatinine Ratio 20.2 Glucose 181 H Lactate Calcium 9.7 Magnesium 1.7 Total Bilirubin 1.4 H AST 103 H ALT 62 H Alkaline Phosphatase 188 H Total Creatine Kinase 37 CK-MB (CK-2) TNP CK-MB (CK-2) Rel Index TNP Troponin I 0.033 NT-Pro-B Natriuret Pep 5220 H Total Protein 6.7 Albumin 4.0 Globulin 2.7 Albumin/Globulin Ratio 1.5 Lipase Procalcitonin 38.81 H Urine Color Urine Appearance Urine pH Ur Specific [place] Urine Protein Urine Glucose (UA) Urine Ketones Urine Occult Blood Urine Nitrate Urine Bilirubin Urine Urobilinogen Ur Leukocyte Esterase Urine RBC Urine WBC Ur Squamous Epith Cells Urine Bacteria Ur Culture Indicated? A. baumannii (PCR) Sammi albicans (PCR) C. glabrata (PCR) C. krusei (PCR) C. parapsilosis (PCR) C. tropicalis (PCR) COVID-19 PCR Enterobacteriac sp PCR E. cloacae complex PCR Enterococcus sp PCR E. coli (PCR) H. influenzae (PCR) Klebsiella oxytoca PCR Klebsiella pneumoniae List. monocytogenes PCR N. meningitidis (PCR) Proteus species (PCR) Serratia marcescens PCR Staphylococcus sp PCR Staph aureus (PCR) mecA-Methicil Res Gene Streptococcus sp PCR Group A Strep (PCR) Strep agalactiae (PCR) Strep pneumoniae (PCR) P. aeruginosa (PCR) Felicitas/B-Vanco Res Genes KPC-Carbap Res Gene PCR 11/27/19 11/27/19 11/27/19 09:20 09:20 09:22 WBC RBC Hgb Hct MCV MCH MCHC RDW Plt Count Neut % (Auto) Lymph % (Auto) [place] % (Auto) Eos % (Auto) Baso % (Auto) Neut # (Auto) Lymph # (Auto) [place] # (Auto) Eos # (Auto) Baso # (Auto) Total Counted Seg Neutrophils % Band Neutrophils % Lymphocytes % (Manual) Monocytes % (Manual) Eosinophils % (Manual) Metamyelocytes % Myelocytes % Neutrophils # (Manual) RBC Morphology Anisocytosis PT INR APTT ABG pH ABG pCO2 ABG pO2 ABG HCO3 ABG Total CO2 ABG O2 Saturation ABG Base Excess FiO2 Sodium Potassium Chloride Carbon Dioxide BUN Creatinine Estimated GFR BUN/Creatinine Ratio Glucose Lactate 9.0 H* Calcium Magnesium Total Bilirubin AST ALT Alkaline Phosphatase Total Creatine Kinase CK-MB (CK-2) CK-MB (CK-2) Rel Index Troponin I NT-Pro-B Natriuret Pep Total Protein Albumin Globulin Albumin/Globulin Ratio Lipase Procalcitonin Urine Color [place] Urine Appearance Cloudy Urine pH 5.5 Ur Specific [place] 1.020 Urine Protein 2+ H Urine Glucose (UA) Negative Urine Ketones Trace H Urine Occult Blood 3+ H Urine Nitrate Negative Urine Bilirubin Negative Urine Urobilinogen 0.2 Ur Leukocyte Esterase 1+ H Urine RBC 10-30/hpf H Urine WBC 10-30/hpf H Ur Squamous Epith Cells 1-5 /hpf Urine Bacteria Many (>30) H Ur Culture Indicated? Specimen cultured A. baumannii (PCR) Not detected Sammi albicans (PCR) Not detected C. glabrata (PCR) Not detected C. krusei (PCR) Not detected C. parapsilosis (PCR) Not detected C. tropicalis (PCR) Not detected COVID-19 PCR Enterobacteriac sp PCR Detected H E. cloacae complex PCR Not detected Enterococcus sp PCR Not detected E. coli (PCR) Detected H H. influenzae (PCR) Not detected Klebsiella oxytoca PCR Not detected Klebsiella pneumoniae Not detected List. monocytogenes PCR Not detected N. meningitidis (PCR) Not detected Proteus species (PCR) Not detected Serratia marcescens PCR Not detected Staphylococcus sp PCR Not detected Staph aureus (PCR) Not detected mecA-Methicil Res Gene Not Reportable Streptococcus sp PCR Not detected Group A Strep (PCR) Not detected Strep agalactiae (PCR) Not detected Strep pneumoniae (PCR) Not detected P. aeruginosa (PCR) Not detected Felicitas/B-Vanco Res Genes Not Reportable KPC-Carbap Res Gene PCR Not detected 11/27/19 11/27/19 11/27/19 09:25 11:40 14:32 WBC RBC Hgb Hct MCV MCH MCHC RDW Plt Count Neut % (Auto) Lymph % (Auto) [place] % (Auto) Eos % (Auto) Baso % (Auto) Neut # (Auto) Lymph # (Auto) [place] # (Auto) Eos # (Auto) Baso # (Auto) Total Counted Seg Neutrophils % Band Neutrophils % Lymphocytes % (Manual) Monocytes % (Manual) Eosinophils % (Manual) Metamyelocytes % Myelocytes % Neutrophils # (Manual) RBC Morphology Anisocytosis PT INR APTT ABG pH ABG pCO2 ABG pO2 ABG HCO3 ABG Total CO2 ABG O2 Saturation ABG Base Excess FiO2 Sodium Potassium Chloride Carbon Dioxide BUN Creatinine Estimated GFR BUN/Creatinine Ratio Glucose Lactate 5.9 H* 4.4 H* Calcium Magnesium Total Bilirubin AST ALT Alkaline Phosphatase Total Creatine Kinase CK-MB (CK-2) CK-MB (CK-2) Rel Index Troponin I NT-Pro-B Natriuret Pep Total Protein Albumin Globulin Albumin/Globulin Ratio Lipase 110 Procalcitonin Urine Color Urine Appearance Urine pH Ur Specific [place] Urine Protein Urine Glucose (UA) Urine Ketones Urine Occult Blood Urine Nitrate Urine Bilirubin Urine Urobilinogen Ur Leukocyte Esterase Urine RBC Urine WBC Ur Squamous Epith Cells Urine Bacteria Ur Culture Indicated? A. baumannii (PCR) Sammi albicans (PCR) C. glabrata (PCR) C. krusei (PCR) C. parapsilosis (PCR) C. tropicalis (PCR) COVID-19 PCR Enterobacteriac sp PCR E. cloacae complex PCR Enterococcus sp PCR E. coli (PCR) H. influenzae (PCR) Klebsiella oxytoca PCR Klebsiella pneumoniae List. monocytogenes PCR N. meningitidis (PCR) Proteus species (PCR) Serratia marcescens PCR Staphylococcus sp PCR Staph aureus (PCR) mecA-Methicil Res Gene Streptococcus sp PCR Group A Strep (PCR) Strep agalactiae (PCR) Strep pneumoniae (PCR) P. aeruginosa (PCR) Felicitas/B-Vanco Res Genes KPC-Carbap Res Gene PCR 11/27/19 11/27/19 11/27/19 18:19 18:19 18:19 WBC RBC Hgb Hct MCV MCH MCHC RDW Plt Count Neut % (Auto) Lymph % (Auto) [place] % (Auto) Eos % (Auto) Baso % (Auto) Neut # (Auto) Lymph # (Auto) [place] # (Auto) Eos # (Auto) Baso # (Auto) Total Counted Seg Neutrophils % Band Neutrophils % Lymphocytes % (Manual) Monocytes % (Manual) Eosinophils % (Manual) Metamyelocytes % Myelocytes % Neutrophils # (Manual) RBC Morphology Anisocytosis PT INR APTT ABG pH ABG pCO2 ABG pO2 ABG HCO3 ABG Total CO2 ABG O2 Saturation ABG Base Excess FiO2 Sodium 138 Potassium 3.2 L Chloride 112 H Carbon Dioxide 15 L BUN 39 H Creatinine 2.01 H Estimated GFR 24.2 L BUN/Creatinine Ratio 19.4 Glucose 126 H Lactate 3.6 H Calcium 7.6 L Magnesium 1.7 Total Bilirubin 1.0 AST 48 H ALT 38 H Alkaline Phosphatase 93 D Total Creatine Kinase CK-MB (CK-2) CK-MB (CK-2) Rel Index Troponin I NT-Pro-B Natriuret Pep Total Protein 5.1 L Albumin 2.8 L Globulin 2.3 Albumin/Globulin Ratio 1.2 Lipase Procalcitonin Urine Color Urine Appearance Urine pH Ur Specific [place] Urine Protein Urine Glucose (UA) Urine Ketones Urine Occult Blood Urine Nitrate Urine Bilirubin Urine Urobilinogen Ur Leukocyte Esterase Urine RBC Urine WBC Ur Squamous Epith Cells Urine Bacteria Ur Culture Indicated? A. baumannii (PCR) Sammi albicans (PCR) C. glabrata (PCR) C. krusei (PCR) C. parapsilosis (PCR) C. tropicalis (PCR) COVID-19 PCR Enterobacteriac sp PCR E. cloacae complex PCR Enterococcus sp PCR E. coli (PCR) H. influenzae (PCR) Klebsiella oxytoca PCR Klebsiella pneumoniae List. monocytogenes PCR N. meningitidis (PCR) Proteus species (PCR) Serratia marcescens PCR Staphylococcus sp PCR Staph aureus (PCR) mecA-Methicil Res Gene Streptococcus sp PCR Group A Strep (PCR) Strep agalactiae (PCR) Strep pneumoniae (PCR) P. aeruginosa (PCR) Felicitas/B-Vanco Res Genes KPC-Carbap Res Gene PCR 11/27/19 11/27/19 11/28/19 21:30 21:30 00:20 WBC RBC Hgb Hct MCV MCH MCHC RDW Plt Count Neut % (Auto) Lymph % (Auto) [place] % (Auto) Eos % (Auto) Baso % (Auto) Neut # (Auto) Lymph # (Auto) [place] # (Auto) Eos # (Auto) Baso # (Auto) Total Counted Seg Neutrophils % Band Neutrophils % Lymphocytes % (Manual) Monocytes % (Manual) Eosinophils % (Manual) Metamyelocytes % Myelocytes % Neutrophils # (Manual) RBC Morphology Anisocytosis PT INR APTT ABG pH ABG pCO2 ABG pO2 ABG HCO3 ABG Total CO2 ABG O2 Saturation ABG Base Excess FiO2 Sodium Potassium 3.5 Chloride Carbon Dioxide BUN Creatinine Estimated GFR BUN/Creatinine Ratio Glucose Lactate 4.0 H 3.7 H Calcium Magnesium Total Bilirubin AST ALT Alkaline Phosphatase Total Creatine Kinase CK-MB (CK-2) CK-MB (CK-2) Rel Index Troponin I NT-Pro-B Natriuret Pep Total Protein Albumin Globulin Albumin/Globulin Ratio Lipase Procalcitonin Urine Color Urine Appearance Urine pH Ur Specific [place] Urine Protein Urine Glucose (UA) Urine Ketones Urine Occult Blood Urine Nitrate Urine Bilirubin Urine Urobilinogen Ur Leukocyte Esterase Urine RBC Urine WBC Ur Squamous Epith Cells Urine Bacteria Ur Culture Indicated? A. baumannii (PCR) Sammi albicans (PCR) C. glabrata (PCR) C. krusei (PCR) C. parapsilosis (PCR) C. tropicalis (PCR) COVID-19 PCR Enterobacteriac sp PCR E. cloacae complex PCR Enterococcus sp PCR E. coli (PCR) H. influenzae (PCR) Klebsiella oxytoca PCR Klebsiella pneumoniae List. monocytogenes PCR N. meningitidis (PCR) Proteus species (PCR) Serratia marcescens PCR Staphylococcus sp PCR Staph aureus (PCR) mecA-Methicil Res Gene Streptococcus sp PCR Group A Strep (PCR) Strep agalactiae (PCR) Strep pneumoniae (PCR) P. aeruginosa (PCR) Felicitas/B-Vanco Res Genes KPC-Carbap Res Gene PCR 11/28/19 11/28/19 11/28/19 02:18 02:18 02:18 WBC 30.9 H* D RBC 4.72 Hgb 13.2 Hct 42.0 MCV 89.0 MCH 27.9 MCHC 31.3 RDW 16.0 H Plt Count 111 L Neut % (Auto) Not Reportable Lymph % (Auto) Not Reportable [place] % (Auto) Not Reportable Eos % (Auto) Not Reportable Baso % (Auto) Not Reportable Neut # (Auto) Lymph # (Auto) Not Reportable [place] # (Auto) Not Reportable Eos # (Auto) Baso # (Auto) Not Reportable Total Counted 100 Seg Neutrophils % 48.0 Band Neutrophils % 38.0 H Lymphocytes % (Manual) 6.0 L Monocytes % (Manual) 2.0 Eosinophils % (Manual) 1.0 L Metamyelocytes % 3.0 H Myelocytes % 2.0 H Neutrophils # (Manual) 72624 H RBC Morphology See below Anisocytosis 1+ H PT INR APTT ABG pH ABG pCO2 ABG pO2 ABG HCO3 ABG Total CO2 ABG O2 Saturation ABG Base Excess FiO2 Sodium 140 Potassium 4.1 Chloride 114 H Carbon Dioxide 15 L BUN 40 H Creatinine 1.72 H Estimated GFR 29.0 L BUN/Creatinine Ratio 23.3 H Glucose 143 H Lactate Calcium 7.9 L Magnesium 2.2 Total Bilirubin 0.8 AST 49 H ALT 41 H Alkaline Phosphatase 99 Total Creatine Kinase CK-MB (CK-2) CK-MB (CK-2) Rel Index Troponin I NT-Pro-B Natriuret Pep Total Protein 5.6 L Albumin 3.1 L Globulin 2.5 Albumin/Globulin Ratio 1.2 Lipase Procalcitonin 51.22 H Urine Color Urine Appearance Urine pH Ur Specific [place] Urine Protein Urine Glucose (UA) Urine Ketones Urine Occult Blood Urine Nitrate Urine Bilirubin Urine Urobilinogen Ur Leukocyte Esterase Urine RBC Urine WBC Ur Squamous Epith Cells Urine Bacteria Ur Culture Indicated? A. baumannii (PCR) Sammi albicans (PCR) C. glabrata (PCR) C. krusei (PCR) C. parapsilosis (PCR) C. tropicalis (PCR) COVID-19 PCR Enterobacteriac sp PCR E. cloacae complex PCR Enterococcus sp PCR E. coli (PCR) H. influenzae (PCR) Klebsiella oxytoca PCR Klebsiella pneumoniae List. monocytogenes PCR N. meningitidis (PCR) Proteus species (PCR) Serratia marcescens PCR Staphylococcus sp PCR Staph aureus (PCR) mecA-Methicil Res Gene Streptococcus sp PCR Group A Strep (PCR) Strep agalactiae (PCR) Strep pneumoniae (PCR) P. aeruginosa (PCR) Felicitas/B-Vanco Res Genes KPC-Carbap Res Gene PCR 11/28/19 02:18 WBC RBC Hgb Hct MCV MCH MCHC RDW Plt Count Neut % (Auto) Lymph % (Auto) [place] % (Auto) Eos % (Auto) Baso % (Auto) Neut # (Auto) Lymph # (Auto) [place] # (Auto) Eos # (Auto) Baso # (Auto) Total Counted Seg Neutrophils % Band Neutrophils % Lymphocytes % (Manual) Monocytes % (Manual) Eosinophils % (Manual) Metamyelocytes % Myelocytes % Neutrophils # (Manual) RBC Morphology Anisocytosis PT INR APTT ABG pH ABG pCO2 ABG pO2 ABG HCO3 ABG Total CO2 ABG O2 Saturation ABG Base Excess FiO2 Sodium Potassium Chloride Carbon Dioxide BUN Creatinine Estimated GFR BUN/Creatinine Ratio Glucose Lactate 3.3 H Calcium Magnesium Total Bilirubin AST ALT Alkaline Phosphatase Total Creatine Kinase CK-MB (CK-2) CK-MB (CK-2) Rel Index Troponin I NT-Pro-B Natriuret Pep Total Protein Albumin Globulin Albumin/Globulin Ratio Lipase Procalcitonin Urine Color Urine Appearance Urine pH Ur Specific [place] Urine Protein Urine Glucose (UA) Urine Ketones Urine Occult Blood Urine Nitrate Urine Bilirubin Urine Urobilinogen Ur Leukocyte Esterase Urine RBC Urine WBC Ur Squamous Epith Cells Urine Bacteria Ur Culture Indicated? A. baumannii (PCR) Sammi albicans (PCR) C. glabrata (PCR) C. krusei (PCR) C. parapsilosis (PCR) C. tropicalis (PCR) COVID-19 PCR Enterobacteriac sp PCR E. cloacae complex PCR Enterococcus sp PCR E. coli (PCR) H. influenzae (PCR) Klebsiella oxytoca PCR Klebsiella pneumoniae List. monocytogenes PCR N. meningitidis (PCR) Proteus species (PCR) Serratia marcescens PCR Staphylococcus sp PCR Staph aureus (PCR) mecA-Methicil Res Gene Streptococcus sp PCR Group A Strep (PCR) Strep agalactiae (PCR) Strep pneumoniae (PCR) P. aeruginosa (PCR) Felicitas/B-Vanco Res Genes KPC-Carbap Res Gene PCR Assessment & Plan Assessment and plan (1) Septic shock: Status: Acute (2) Kidney stones: Status: Acute (3) Acute UTI: Status: Acute Assessment & Plan narrative: Assessment: 1. Clinically improved status post cystoscopy and placement of right ureteral stent 11/27/2019. Plan: 1. Continue supportive measures and follow-up on final culture and sensitivities. 2. Recommend at least 15 day course of appropriate antibiotic treatment. 3. Appointment with [facility] at discharge with [facility]UB before visit. 4. Discussed above and overall situation of patient with her son, Zhou, her POA, both last evening and this a.m.. Quality VTE Deep Vein Thrombosis/Pulmonary Embolism Present on Admission: No
[2019-11-28] MEDS: ALBUTEROL/IPRATROPIUM 3 ML AMPUL INH (08:12)
--- NOTE | 2019-11-28 08:37 | P.PN_ITS ---
Subjective Subjective Date Patient Seen: 11/28/19 Interval history: The patient is lying in bed comfortably. She previously was complaining of significant right-sided flank pain which has now improved with IV Dilaudid and oxycodone. She has had a persistently elevated lactic acidosis in conjunction with persistent right-sided flank pain raising concern for obstruction of a right ureteral stent and will pursue CT KUB. She currently reports she feels much better than yesterday. She reports yesterday was a ?terrible day.? She endorses headache. She also reports her chronic shortness of breath but this has improved since admission compared to outpatient. She has no other compla ints and denies shortness of breath, chest pain, abdominal pain, nausea, vomiting, dysuria, or diarrhea. She reports trouble with her memory. She is voiding via George catheter and eliminating without difficulty. She is up with assistance. Exam Vital Signs (past 8 hours): - 11/28/19 01:57 11/28/19 03:30 11/28/19 04:37 Temperature 98.1 F Pulse Rate 85 93 H 93 H Respiratory Rate 22 22 18 Blood Pressure 104/58 L 112/57 L Pulse Oximetry 95 96 95 11/28/19 06:12 11/28/19 07:51 11/28/19 08:12 Temperature Pulse Rate 97 H 92 H Respiratory Rate 24 16 Blood Pressure 139/67 Pulse Oximetry 93 95 95 Oxygen Delivery Method Nasal Cannula Oxygen Flow Rate 2 Narrative Exam Narrative: General: Elderly female lying in bed and in no acute distress, well-developed, well-nourished, appropriately interactive. HEENT: Normocephalic, atraumatic. External ears without defect. Pupils equal, round, and reactive to light. Anicteric sclerae, moist conjunctivae, and no lid lag. Oropharynx free of erythema and cobble stoning with moist mucosa. Neck: Supple with full range of motion. No jugular venous distension. No lymphadenopathy or thyromegaly. Cardiovascular: Regular rate and rhythm without murmurs, rubs, or gallops appreciated. Pulmonary: Clear to auscultation bilaterally with occasional bibasilar crackle. No wheezes or rhonchi. Mild tachypnea with mild use of accessory muscles. Abdomen: Soft, obese, bowel sounds present, right-sided flank tenderness to palpation improved, mild to moderate distention. Extremities: No clubbing, cyanosis, or edema. Distal extremities cold to touch. Skin: Normal temperature, turgor, and texture; no rash, ulcers, or subcutaneous nodules appreciated. Neurological: Cranial nerves grossly intact. Psychiatric: Normal mood an affect. Appears alert oriented to person and place. Objective Labs Result Diagrams: 11/28/19 02:18 11/28/19 08:09 Labs: Laboratory Results - last 24 hr 11/27/19 11/27/19 11/27/19 08:53 09:13 09:20 WBC 8.6 RBC 5.39 H Hgb 15.1 Hct 46.6 H MCV 86.5 MCH 28.1 MCHC 32.5 RDW 15.6 H Plt Count 218 Neut % (Auto) 89.7 H Lymph % (Auto) 9.4 L [place] % (Auto) 0.6 L Eos % (Auto) 0.1 L Baso % (Auto) 0.2 Neut # (Auto) 7700 H Lymph # (Auto) 800 L [place] # (Auto) 0 Eos # (Auto) 0 Baso # (Auto) 0 Total Counted Seg Neutrophils % Band Neutrophils % Lymphocytes % (Manual) Monocytes % (Manual) Eosinophils % (Manual) Metamyelocytes % Myelocytes % Neutrophils # (Manual) RBC Morphology Anisocytosis PT INR APTT ABG pH 7.41 ABG pCO2 17.6 L* ABG pO2 72 L ABG HCO3 11 L ABG Total CO2 12 L ABG O2 Saturation 95 ABG Base Excess -13.0 L FiO2 21 Sodium Potassium Chloride Carbon Dioxide BUN Creatinine Estimated GFR BUN/Creatinine Ratio Glucose Lactate Calcium Magnesium Total Bilirubin AST ALT Alkaline Phosphatase Total Creatine Kinase CK-MB (CK-2) CK-MB (CK-2) Rel Index Troponin I NT-Pro-B Natriuret Pep Total Protein Albumin Globulin Albumin/Globulin Ratio Lipase Procalcitonin Urine Color Urine Appearance Urine pH Ur Specific [place] Urine Protein Urine Glucose (UA) Urine Ketones Urine Occult Blood Urine Nitrate Urine Bilirubin Urine Urobilinogen Ur Leukocyte Esterase Urine RBC Urine WBC Ur Squamous Epith Cells Urine Bacteria Ur Culture Indicated? A. baumannii (PCR) Sammi albicans (PCR) C. glabrata (PCR) C. krusei (PCR) C. parapsilosis (PCR) C. tropicalis (PCR) COVID-19 PCR Negative Enterobacteriac sp PCR E. cloacae complex PCR Enterococcus sp PCR E. coli (PCR) H. influenzae (PCR) Klebsiella oxytoca PCR Klebsiella pneumoniae List. monocytogenes PCR N. meningitidis (PCR) Proteus species (PCR) Serratia marcescens PCR Staphylococcus sp PCR Staph aureus (PCR) mecA-Methicil Res Gene Streptococcus sp PCR Group A Strep (PCR) Strep agalactiae (PCR) Strep pneumoniae (PCR) P. aeruginosa (PCR) Felicitas/B-Vanco Res Genes KPC-Carbap Res Gene PCR 11/27/19 11/27/19 11/27/19 09:20 09:20 09:20 WBC RBC Hgb Hct MCV MCH MCHC RDW Plt Count Neut % (Auto) Lymph % (Auto) [place] % (Auto) Eos % (Auto) Baso % (Auto) Neut # (Auto) Lymph # (Auto) [place] # (Auto) Eos # (Auto) Baso # (Auto) Total Counted Seg Neutrophils % Band Neutrophils % Lymphocytes % (Manual) Monocytes % (Manual) Eosinophils % (Manual) Metamyelocytes % Myelocytes % Neutrophils # (Manual) RBC Morphology Anisocytosis PT 12.6 INR 1.1 APTT 33 ABG pH ABG pCO2 ABG pO2 ABG HCO3 ABG Total CO2 ABG O2 Saturation ABG Base Excess FiO2 Sodium 138 Potassium 3.6 Chloride 104 Carbon Dioxide 13 L BUN 38 H Creatinine 1.88 H Estimated GFR 26.2 L BUN/Creatinine Ratio 20.2 Glucose 181 H Lactate Calcium 9.7 Magnesium 1.7 Total Bilirubin 1.4 H AST 103 H ALT 62 H Alkaline Phosphatase 188 H Total Creatine Kinase 37 CK-MB (CK-2) TNP CK-MB (CK-2) Rel Index TNP Troponin I 0.033 NT-Pro-B Natriuret Pep 5220 H Total Protein 6.7 Albumin 4.0 Globulin 2.7 Albumin/Globulin Ratio 1.5 Lipase Procalcitonin 38.81 H Urine Color Urine Appearance Urine pH Ur Specific [place] Urine Protein Urine Glucose (UA) Urine Ketones Urine Occult Blood Urine Nitrate Urine Bilirubin Urine Urobilinogen Ur Leukocyte Esterase Urine RBC Urine WBC Ur Squamous Epith Cells Urine Bacteria Ur Culture Indicated? A. baumannii (PCR) Sammi albicans (PCR) C. glabrata (PCR) C. krusei (PCR) C. parapsilosis (PCR) C. tropicalis (PCR) COVID-19 PCR Enterobacteriac sp PCR E. cloacae complex PCR Enterococcus sp PCR E. coli (PCR) H. influenzae (PCR) Klebsiella oxytoca PCR Klebsiella pneumoniae List. monocytogenes PCR N. meningitidis (PCR) Proteus species (PCR) Serratia marcescens PCR Staphylococcus sp PCR Staph aureus (PCR) mecA-Methicil Res Gene Streptococcus sp PCR Group A Strep (PCR) Strep agalactiae (PCR) Strep pneumoniae (PCR) P. aeruginosa (PCR) Felicitas/B-Vanco Res Genes KPC-Carbap Res Gene PCR 11/27/19 11/27/19 11/27/19 09:20 09:20 09:22 WBC RBC Hgb Hct MCV MCH MCHC RDW Plt Count Neut % (Auto) Lymph % (Auto) [place] % (Auto) Eos % (Auto) Baso % (Auto) Neut # (Auto) Lymph # (Auto) [place] # (Auto) Eos # (Auto) Baso # (Auto) Total Counted Seg Neutrophils % Band Neutrophils % Lymphocytes % (Manual) Monocytes % (Manual) Eosinophils % (Manual) Metamyelocytes % Myelocytes % Neutrophils # (Manual) RBC Morphology Anisocytosis PT INR APTT ABG pH ABG pCO2 ABG pO2 ABG HCO3 ABG Total CO2 ABG O2 Saturation ABG Base Excess FiO2 Sodium Potassium Chloride Carbon Dioxide BUN Creatinine Estimated GFR BUN/Creatinine Ratio Glucose Lactate 9.0 H* Calcium Magnesium Total Bilirubin AST ALT Alkaline Phosphatase Total Creatine Kinase CK-MB (CK-2) CK-MB (CK-2) Rel Index Troponin I NT-Pro-B Natriuret Pep Total Protein Albumin Globulin Albumin/Globulin Ratio Lipase Procalcitonin Urine Color [place] Urine Appearance Cloudy Urine pH 5.5 Ur Specific [place] 1.020 Urine Protein 2+ H Urine Glucose (UA) Negative Urine Ketones Trace H Urine Occult Blood 3+ H Urine Nitrate Negative Urine Bilirubin Negative Urine Urobilinogen 0.2 Ur Leukocyte Esterase 1+ H Urine RBC 10-30/hpf H Urine WBC 10-30/hpf H Ur Squamous Epith Cells 1-5 /hpf Urine Bacteria Many (>30) H Ur Culture Indicated? Specimen cultured A. baumannii (PCR) Not detected Sammi albicans (PCR) Not detected C. glabrata (PCR) Not detected C. krusei (PCR) Not detected C. parapsilosis (PCR) Not detected C. tropicalis (PCR) Not detected COVID-19 PCR Enterobacteriac sp PCR Detected H E. cloacae complex PCR Not detected Enterococcus sp PCR Not detected E. coli (PCR) Detected H H. influenzae (PCR) Not detected Klebsiella oxytoca PCR Not detected Klebsiella pneumoniae Not detected List. monocytogenes PCR Not detected N. meningitidis (PCR) Not detected Proteus species (PCR) Not detected Serratia marcescens PCR Not detected Staphylococcus sp PCR Not detected Staph aureus (PCR) Not detected mecA-Methicil Res Gene Not Reportable Streptococcus sp PCR Not detected Group A Strep (PCR) Not detected Strep agalactiae (PCR) Not detected Strep pneumoniae (PCR) Not detected P. aeruginosa (PCR) Not detected Felicitas/B-Vanco Res Genes Not Reportable KPC-Carbap Res Gene PCR Not detected 11/27/19 11/27/19 11/27/19 09:25 11:40 14:32 WBC RBC Hgb Hct MCV MCH MCHC RDW Plt Count Neut % (Auto) Lymph % (Auto) [place] % (Auto) Eos % (Auto) Baso % (Auto) Neut # (Auto) Lymph # (Auto) [place] # (Auto) Eos # (Auto) Baso # (Auto) Total Counted Seg Neutrophils % Band Neutrophils % Lymphocytes % (Manual) Monocytes % (Manual) Eosinophils % (Manual) Metamyelocytes % Myelocytes % Neutrophils # (Manual) RBC Morphology Anisocytosis PT INR APTT ABG pH ABG pCO2 ABG pO2 ABG HCO3 ABG Total CO2 ABG O2 Saturation ABG Base Excess FiO2 Sodium Potassium Chloride Carbon Dioxide BUN Creatinine Estimated GFR BUN/Creatinine Ratio Glucose Lactate 5.9 H* 4.4 H* Calcium Magnesium Total Bilirubin AST ALT Alkaline Phosphatase Total Creatine Kinase CK-MB (CK-2) CK-MB (CK-2) Rel Index Troponin I NT-Pro-B Natriuret Pep Total Protein Albumin Globulin Albumin/Globulin Ratio Lipase 110 Procalcitonin Urine Color Urine Appearance Urine pH Ur Specific [place] Urine Protein Urine Glucose (UA) Urine Ketones Urine Occult Blood Urine Nitrate Urine Bilirubin Urine Urobilinogen Ur Leukocyte Esterase Urine RBC Urine WBC Ur Squamous Epith Cells Urine Bacteria Ur Culture Indicated? A. baumannii (PCR) Sammi albicans (PCR) C. glabrata (PCR) C. krusei (PCR) C. parapsilosis (PCR) C. tropicalis (PCR) COVID-19 PCR Enterobacteriac sp PCR E. cloacae complex PCR Enterococcus sp PCR E. coli (PCR) H. influenzae (PCR) Klebsiella oxytoca PCR Klebsiella pneumoniae List. monocytogenes PCR N. meningitidis (PCR) Proteus species (PCR) Serratia marcescens PCR Staphylococcus sp PCR Staph aureus (PCR) mecA-Methicil Res Gene Streptococcus sp PCR Group A Strep (PCR) Strep agalactiae (PCR) Strep pneumoniae (PCR) P. aeruginosa (PCR) Felicitas/B-Vanco Res Genes KPC-Carbap Res Gene PCR 11/27/19 11/27/19 11/27/19 18:19 18:19 18:19 WBC RBC Hgb Hct MCV MCH MCHC RDW Plt Count Neut % (Auto) Lymph % (Auto) [place] % (Auto) Eos % (Auto) Baso % (Auto) Neut # (Auto) Lymph # (Auto) [place] # (Auto) Eos # (Auto) Baso # (Auto) Total Counted Seg Neutrophils % Band Neutrophils % Lymphocytes % (Manual) Monocytes % (Manual) Eosinophils % (Manual) Metamyelocytes % Myelocytes % Neutrophils # (Manual) RBC Morphology Anisocytosis PT INR APTT ABG pH ABG pCO2 ABG pO2 ABG HCO3 ABG Total CO2 ABG O2 Saturation ABG Base Excess FiO2 Sodium 138 Potassium 3.2 L Chloride 112 H Carbon Dioxide 15 L BUN 39 H Creatinine 2.01 H Estimated GFR 24.2 L BUN/Creatinine Ratio 19.4 Glucose 126 H Lactate 3.6 H Calcium 7.6 L Magnesium 1.7 Total Bilirubin 1.0 AST 48 H ALT 38 H Alkaline Phosphatase 93 D Total Creatine Kinase CK-MB (CK-2) CK-MB (CK-2) Rel Index Troponin I NT-Pro-B Natriuret Pep Total Protein 5.1 L Albumin 2.8 L Globulin 2.3 Albumin/Globulin Ratio 1.2 Lipase Procalcitonin Urine Color Urine Appearance Urine pH Ur Specific [place] Urine Protein Urine Glucose (UA) Urine Ketones Urine Occult Blood Urine Nitrate Urine Bilirubin Urine Urobilinogen Ur Leukocyte Esterase Urine RBC Urine WBC Ur Squamous Epith Cells Urine Bacteria Ur Culture Indicated? A. baumannii (PCR) Sammi albicans (PCR) C. glabrata (PCR) C. krusei (PCR) C. parapsilosis (PCR) C. tropicalis (PCR) COVID-19 PCR Enterobacteriac sp PCR E. cloacae complex PCR Enterococcus sp PCR E. coli (PCR) H. influenzae (PCR) Klebsiella oxytoca PCR Klebsiella pneumoniae List. monocytogenes PCR N. meningitidis (PCR) Proteus species (PCR) Serratia marcescens PCR Staphylococcus sp PCR Staph aureus (PCR) mecA-Methicil Res Gene Streptococcus sp PCR Group A Strep (PCR) Strep agalactiae (PCR) Strep pneumoniae (PCR) P. aeruginosa (PCR) Felicitas/B-Vanco Res Genes KPC-Carbap Res Gene PCR 11/27/19 11/27/19 11/28/19 21:30 21:30 00:20 WBC RBC Hgb Hct MCV MCH MCHC RDW Plt Count Neut % (Auto) Lymph % (Auto) [place] % (Auto) Eos % (Auto) Baso % (Auto) Neut # (Auto) Lymph # (Auto) [place] # (Auto) Eos # (Auto) Baso # (Auto) Total Counted Seg Neutrophils % Band Neutrophils % Lymphocytes % (Manual) Monocytes % (Manual) Eosinophils % (Manual) Metamyelocytes % Myelocytes % Neutrophils # (Manual) RBC Morphology Anisocytosis PT INR APTT ABG pH ABG pCO2 ABG pO2 ABG HCO3 ABG Total CO2 ABG O2 Saturation ABG Base Excess FiO2 Sodium Potassium 3.5 Chloride Carbon Dioxide BUN Creatinine Estimated GFR BUN/Creatinine Ratio Glucose Lactate 4.0 H 3.7 H Calcium Magnesium Total Bilirubin AST ALT Alkaline Phosphatase Total Creatine Kinase CK-MB (CK-2) CK-MB (CK-2) Rel Index Troponin I NT-Pro-B Natriuret Pep Total Protein Albumin Globulin Albumin/Globulin Ratio Lipase Procalcitonin Urine Color Urine Appearance Urine pH Ur Specific [place] Urine Protein Urine Glucose (UA) Urine Ketones Urine Occult Blood Urine Nitrate Urine Bilirubin Urine Urobilinogen Ur Leukocyte Esterase Urine RBC Urine WBC Ur Squamous Epith Cells Urine Bacteria Ur Culture Indicated? A. baumannii (PCR) Sammi albicans (PCR) C. glabrata (PCR) C. krusei (PCR) C. parapsilosis (PCR) C. tropicalis (PCR) COVID-19 PCR Enterobacteriac sp PCR E. cloacae complex PCR Enterococcus sp PCR E. coli (PCR) H. influenzae (PCR) Klebsiella oxytoca PCR Klebsiella pneumoniae List. monocytogenes PCR N. meningitidis (PCR) Proteus species (PCR) Serratia marcescens PCR Staphylococcus sp PCR Staph aureus (PCR) mecA-Methicil Res Gene Streptococcus sp PCR Group A Strep (PCR) Strep agalactiae (PCR) Strep pneumoniae (PCR) P. aeruginosa (PCR) Felicitas/B-Vanco Res Genes KPC-Carbap Res Gene PCR 11/28/19 11/28/19 11/28/19 02:18 02:18 02:18 WBC 30.9 H* D RBC 4.72 Hgb 13.2 Hct 42.0 MCV 89.0 MCH 27.9 MCHC 31.3 RDW 16.0 H Plt Count 111 L Neut % (Auto) Not Reportable Lymph % (Auto) Not Reportable [place] % (Auto) Not Reportable Eos % (Auto) Not Reportable Baso % (Auto) Not Reportable Neut # (Auto) Lymph # (Auto) Not Reportable [place] # (Auto) Not Reportable Eos # (Auto) Baso # (Auto) Not Reportable Total Counted 100 Seg Neutrophils % 48.0 Band Neutrophils % 38.0 H Lymphocytes % (Manual) 6.0 L Monocytes % (Manual) 2.0 Eosinophils % (Manual) 1.0 L Metamyelocytes % 3.0 H Myelocytes % 2.0 H Neutrophils # (Manual) 21797 H RBC Morphology See below Anisocytosis 1+ H PT INR APTT ABG pH ABG pCO2 ABG pO2 ABG HCO3 ABG Total CO2 ABG O2 Saturation ABG Base Excess FiO2 Sodium 140 Potassium 4.1 Chloride 114 H Carbon Dioxide 15 L BUN 40 H Creatinine 1.72 H Estimated GFR 29.0 L BUN/Creatinine Ratio 23.3 H Glucose 143 H Lactate Calcium 7.9 L Magnesium 2.2 Total Bilirubin 0.8 AST 49 H ALT 41 H Alkaline Phosphatase 99 Total Creatine Kinase CK-MB (CK-2) CK-MB (CK-2) Rel Index Troponin I NT-Pro-B Natriuret Pep Total Protein 5.6 L Albumin 3.1 L Globulin 2.5 Albumin/Globulin Ratio 1.2 Lipase Procalcitonin 51.22 H Urine Color Urine Appearance Urine pH Ur Specific [place] Urine Protein Urine Glucose (UA) Urine Ketones Urine Occult Blood Urine Nitrate Urine Bilirubin Urine Urobilinogen Ur Leukocyte Esterase Urine RBC Urine WBC Ur Squamous Epith Cells Urine Bacteria Ur Culture Indicated? A. baumannii (PCR) Sammi albicans (PCR) C. glabrata (PCR) C. krusei (PCR) C. parapsilosis (PCR) C. tropicalis (PCR) COVID-19 PCR Enterobacteriac sp PCR E. cloacae complex PCR Enterococcus sp PCR E. coli (PCR) H. influenzae (PCR) Klebsiella oxytoca PCR Klebsiella pneumoniae List. monocytogenes PCR N. meningitidis (PCR) Proteus species (PCR) Serratia marcescens PCR Staphylococcus sp PCR Staph aureus (PCR) mecA-Methicil Res Gene Streptococcus sp PCR Group A Strep (PCR) Strep agalactiae (PCR) Strep pneumoniae (PCR) P. aeruginosa (PCR) Felicitas/B-Vanco Res Genes KPC-Carbap Res Gene PCR 11/28/19 02:18 WBC RBC Hgb Hct MCV MCH MCHC RDW Plt Count Neut % (Auto) Lymph % (Auto) [place] % (Auto) Eos % (Auto) Baso % (Auto) Neut # (Auto) Lymph # (Auto) [place] # (Auto) Eos # (Auto) Baso # (Auto) Total Counted Seg Neutrophils % Band Neutrophils % Lymphocytes % (Manual) Monocytes % (Manual) Eosinophils % (Manual) Metamyelocytes % Myelocytes % Neutrophils # (Manual) RBC Morphology Anisocytosis PT INR APTT ABG pH ABG pCO2 ABG pO2 ABG HCO3 ABG Total CO2 ABG O2 Saturation ABG Base Excess FiO2 Sodium Potassium Chloride Carbon Dioxide BUN Creatinine Estimated GFR BUN/Creatinine Ratio Glucose Lactate 3.3 H Calcium Magnesium Total Bilirubin AST ALT Alkaline Phosphatase Total Creatine Kinase CK-MB (CK-2) CK-MB (CK-2) Rel Index Troponin I NT-Pro-B Natriuret Pep Total Protein Albumin Globulin Albumin/Globulin Ratio Lipase Procalcitonin Urine Color Urine Appearance Urine pH Ur Specific [place] Urine Protein Urine Glucose (UA) Urine Ketones Urine Occult Blood Urine Nitrate Urine Bilirubin Urine Urobilinogen Ur Leukocyte Esterase Urine RBC Urine WBC Ur Squamous Epith Cells Urine Bacteria Ur Culture Indicated? A. baumannii (PCR) Sammi albicans (PCR) C. glabrata (PCR) C. krusei (PCR) C. parapsilosis (PCR) C. tropicalis (PCR) COVID-19 PCR Enterobacteriac sp PCR E. cloacae complex PCR Enterococcus sp PCR E. coli (PCR) H. influenzae (PCR) Klebsiella oxytoca PCR Klebsiella pneumoniae List. monocytogenes PCR N. meningitidis (PCR) Proteus species (PCR) Serratia marcescens PCR Staphylococcus sp PCR Staph aureus (PCR) mecA-Methicil Res Gene Streptococcus sp PCR Group A Strep (PCR) Strep agalactiae (PCR) Strep pneumoniae (PCR) P. aeruginosa (PCR) Felicitas/B-Vanco Res Genes KPC-Carbap Res Gene PCR Assessment & Plan Assessment & Plan narrative: Araceli Myers is a 74-year-old female with a past medical history significant for hypertension, hyperlipidemia, asthma recently placed on prednisone, GERD, and depression who presented to the ED with severe right flank pain and shortness of breath. 1. Acute severe sepsis, present on admission. Resolving. -Patient presented with tachycardia (HR 110), tachypnea (RR 28), febrile (T 101.5? F), WBC 8.6, lactate 9.0, procalcitonin 38.81 with end-organ dysfunction of acute kidney injury and hypotension (responsive to IV fluids) with source right-sided obstructive uropathy. -Early goal-directed therapy met including broad-spectrum IV antibiotics and IV fluids. -Continue to trend lactic acid until under 2.0. 2. Acute right-sided obstructive uropathy with E. coli pyelonephritis and bacteremia, present on admission. Active. -Patient presented with progressive worsening right-sided flank pain, fever, chills, rigors, and shortness of breath. -CT abdomen and pelvis with contrast demonstrated obstructing right UPJ stone with mild to moderate right-sided hydronephrosis and perinephric fat stranding and non-obstructing stone in right kidney. No left-sided renal stone or hydronephrosis. -EKG demonstrated sinus rhythm with right bundle branch block and no previous comparison available. Continue to monitor closely on telemetry. Continue monitor electrolytes and replete as necessary given amount of IV fluid resuscitation. -Initial WBC 8.6 and procalcitonin 38.81. WBC and procalcitonin trending up and likely peaking at 30.9 and 51.22, respectively. Continue to monitor WBC and procalcitonin daily. -Blood cultures x2 and urine culture preliminarily growing E. coli with sensitivities pending. -Initial lactic acid elevated at 9.0 and trended down with treatment of acute infection and IV fluid resuscitation but persistent at 3.7. Due to persistent lactic acidosis and right flank pain ordered CT KUB to assess patency of ureteral stent, pending. -Received 4 L boluses of LR in ED. Continue IV fluid hydration with normal saline at 100 mL/hr until adequately hydrated then will discontinue. -Received vancomycin with dosing per pharmacist and Zosyn 3.375 g IV x1 in ED. Continue Zosyn 3.375 g IV every 6 hours pending blood and urine culture sensitivities. -Consulted urology, Dr. Rios, who performed cystoscopy and right ureteral s tent placement. Due to persistent lactic acidosis will repeat CT KUB to assure that patient does not have continued obstruction of ureteral stent placement. 3. Acute metabolic encephalopathy, present on admission. Resolved. -Patient had waxing and waning mentation in the ED. Initial GCS 10. Patient's mentation improved with IV antibiotics and IV fluid hydration and encephalopathy had resolved by the time she arrived to the ICU. -Continue to keep patient awake, alert and stimulated throughout the day and allow for restful sleep at night with minimal interruptions. Continue to reorient frequently 4. Acute kidney injury, present on admission. Active. -Initial creatinine 1.88. Unclear baseline creatinine. Creatinine trending down now 1.68. -Avoid nephrotoxic agents. -Received 4 L boluses of LR in ED. Continue IV fluid hydration with normal saline at 100 mL/hr until adequately hydrated then will discontinue. -Continue to monitor creatinine daily. 5. Mild transaminitis, acuity unclear but likely acute, present on admission. Active. -Likely secondary to biliary stasis of infection versus fatty liver disease as evident on CT. -Initial LFTs: Total bilirubin 1.4, AST 103, ALT 62 and alkaline phosphatase 188. Total bilirubin and alkaline phosphatase resolved. AST and ALT elevation possibly due to fatty liver disease. -Continue to monitor LFTs periodically. 6. Acute hypotension in setting of chronic hypertension, present on admission. Active. -secondary to sepsis and infection. -Patient presented hypotensive but was responsive to IV fluids and never went to septic shock requiring vasopressors. -Received 4 L boluses of LR in ED. Continue IV fluids with normal saline at 100 mL/hr until adequately hydrated then will discontinue. -Held home amlodipine 5 mg daily. 7. Asthma with recent exacerbation, acute on chronic, present on admission. Active. -Patient recently started on prednisone 10 mg daily for acute asthma exacerbation. Held glucocorticoids at this time given sepsis and infection. -ABG: PH 7.41, pCO2 17.6, PO2 72, HC03 11 SpO2 95% on room air. -Ordered respiratory therapy evaluation and treatment. Continue albuterol nebulizers every 2 hours as needed for shortness of breath or wheezing. -Continue supplemental oxygen as necessary to maintain oxygen saturations 88- 92%. Patient currently off oxygen. 7. Constipation with fecal impaction, acute on chronic, present on admission. Resolved. -CT abdomen and pelvis with contrast demonstrated constipation and fecal impaction without abnormal bowel wall thickening, free fluid or free air. -Continue bowel regimen with MiraLax 17 g daily and Colace 100 mg twice daily. Patient has now had several regular bowel movements. 8. Hyperlipidemia, chronic, present on admission. Stable. -Continue home rosuvastatin 10 mg daily. 9. GERD, chronic, present on admission. Stable. -Continue pantoprazole 40 mg daily. 10. Depression, chronic, present on admission. Stable. -Continue duloxetine 60 mg daily. Code status: DNR/DNI. Patient designates venu Myers as surrogate decision maker and DPOA VTE prophylaxis: SQ Heparin, SCDs Disposition: Patient remains hospitalized to treat obstructive uropathy with E coli pyelonephritis and bacteremia. Quality VTE Deep Vein Thrombosis/Pulmonary Embolism Present on Admission: No
[2019-11-28 08:38] LABS: Lactate (Lactic Acid) 3.7 mmol/L (0.7-2.1)
[2019-11-28 09:04] LABS: BUN Creatinine Ratio 23.8 (6-22); Blood Urea Nitrogen 40 mg/dL (7-17); Calcium 7.9 mg/dL (8.4-10.2); Carbon Dioxide 16 mmol/L (22-32); Chloride 113 mmol/L (98-107); Estimated Glomerular Filt Rate 29.8 mL/min (>60); Glucose 160 mg/dL (80-110); HEMOLYSIS < 15 (0-50); Magnesium 2.2 mg/dL (1.6-2.3); Potassium 4.1 mmol/L (3.4-5.1); Sodium 142 mmol/L (137-145)
[2019-11-28 10:13] LABS: Reflexed Lactate in 2 Hours Y
[2019-11-28 11:18] LABS: Lactate 2HR (Lactic Acid Rflx) 3.7 mmol/L (0.7-2.1)
--- NOTE | 2019-11-28 11:33 | PT.IIE ---
Current Diagnoses Sepsis, unspecified organism (11/27/19) Calculus of kidney (11/27/19) Urinary tract infection, site not specified (11/27/19) Severe sepsis with septic shock (11/27/19) Surgery Performed Operation Date: 11/27/19 16:15 Actual Procedures p Cystoscopy/ Placement Right Ureteral Stent(Right) - Bowen Rios MD Surgical History (Last Updated 11/27/19 @ 18:11 by Lisbeth Padgett DO) History of cataract removal with insertion of prosthetic lens (Acute) History of left inguinal hernia repair (Acute) History of tonsillectomy (Acute) Medical History (Last Updated 11/27/19 @ 18:11 by Lisbeth Padgett DO) Ankle fracture, left (Acute) Asthma (Acute) Depression (Acute) GERD (gastroesophageal reflux disease) (Acute) Hyperlipidemia (Acute) Hypertension (Acute) Osteoarthritis (Acute) Physical Therapy Inpatient Evaluation/Re-Eval M1 PT/OT-IP Prior Functional Status Start: 11/28/19 13:29 Freq: NEEDED Status: Active Protocol: Document 11/28/19 11:33 AB (Rec: 11/28/19 13:44 AB [id number]) Medical Review Prior Functional Status Medical History Reviewed Yes Communication able to make needs known Mobility and Gait pt stated that she is independent with all mobilities and ambulation without AD; pt was still able to drive prior to hospitalization Social History Household Members none Living Arrangements Apartment/Condo Number of Floors (Floors) One Floor Number of Stairs To Enter/Railing? 18 steps to enter with L rail ascending Home Environment Standard Height Toilet,Walk in Shower Home Equipment Shower Seat without Backrest M2 PT-IP Current Condition Start: 11/28/19 13:29 Freq: NEEDED Status: Active Protocol: Document 11/28/19 11:33 AB (Rec: 11/28/19 13:44 AB [id number]) Physical Therapy Current Condition Current Condition Evaluation Date 11/28/19 Treatment Diagnosis sepsis; UTI; difficulty in walking Onset Date 11/27/19 M3 PT-IP Subjective Start: 11/28/19 13:29 Freq: NEEDED Status: Active Protocol: Document 11/28/19 11:33 AB (Rec: 11/28/19 13:44 AB [id number]) Subjective Physical Therapy Visit Type Type Initial Evaluation Visit Start Time 11:33 Visit Stop Time 12:10 Total Visit Minutes 37 Number of [employer]DER Visits 0 Physical Therapy Visit Comments Patient Comments pt is agreeable to do PT Therapy Pain Assessment Pain When Pain Assessed During Mobility Location Head Scale Used scale not stated Pain Management Techniques Distraction M4 PT-IP Mobility and Gait Start: 11/28/19 13:29 Freq: NEEDED Status: Active Protocol: Document 11/28/19 11:33 AB (Rec: 11/28/19 13:44 AB [id number]) PT-Bed Mobility Assessment Supine to Sit Supine to Sit Moderate Assistance,Maximum Assistance PT-Transfer Assessment Sit to and From Stand Sit to and from Stand Moderate Assistance,1 Person Assistance,Use of Upper Extremities Equipment Transfer Assistive Device Gait Belt,Front Wheeled Walker Orthotic/Prosthetic Devices or Brace: No Transfers Transfer Technique Stand Step Pivot Transfer Ability Level of Assist Moderate Assistance,1 Person Assistance,Use of Upper Extremities Comments Mobility Comments BP in supine: 113/54. obtained PLOF and home set up and while talking to pt, pt has been having tachycardia on and off. requires cues for deep breathing and rest breaks . HR: ranging from 83 to 150. completed bed mobility supine to sit with bedrail mod to max A and max cues. pt is able to sit on EOB CGA. c/o headache upon sitting. BP 114 /67. requires increase rest breaks in between activities due to tachycardia. completed sit to stand mod A and cues and was able to complete transfer to chair using FWW mod A and cues. ambulation deferred due to on/off tachycardia. nurse aware and agreed. positioned pt on chair. call light and table positioned within reach. Gait Assessment Comments Gait Comments pls refer to mobility section for details PT-Balance Assessment Sitting Balance and Reactions Static Sitting Balance Ability Good Dynamic Sitting Balance Ability Good Standing Balance and Reactions Static Standing Balance Ability Fair Dynamic Standing Balance Ability Poor Device Used FWW M5 PT-IP Objective Assessments Start: 11/28/19 13:29 Freq: NEEDED Status: Active Protocol: Document 11/28/19 11:33 AB (Rec: 11/28/19 13:44 AB [id number]) Orientation Orientation/Cognition Level of Alertness Alert Orientation Name Safety Awareness Decreased Safety Awareness Gross Range of Motion Lower Extremity ROM Assessment Within Functional Limits Strength Lower Extremity Strength Assessment Bilaterally Impaired Hip 3+/5 Knee 4-/5 Sensation Assessment Sensation Gross Sensation WNL Muscle Tone Muscle Tone WNL Yes M6 PT-IP Treatment Start: 11/28/19 13:29 Freq: NEEDED Status: Active Protocol: Document 11/28/19 11:33 AB (Rec: 11/28/19 13:44 AB [id number]) Physical Therapy Treatment Education Education Provided Safety M7 PT-IP Assessment and Plan Start: 11/28/19 13:29 Freq: NEEDED Status: Active Protocol: Document 11/28/19 11:33 AB (Rec: 11/28/19 13:44 AB [id number]) PT Summary Assessment and Plan Potential Rehabilitation Potential Good Status of Condition at Evaluation Evolving Summary Impairments Pain,ROM,Strength,Balance, Coordination,Sensation,Tone, Cognition,Bed Mobility, Transfers,Gait,Activity Tolerance Assessment Summary pt requiring mod to max A with mobility and presents with decrease activity tolerance. ambulation deferred today due to tachycardia even with just talking to pt and requiring frequent rest breaks in between activities. pt lives alone and at this time will require 24/7 assist. pt will require SNF rehab at this time to improve strength and functional independence. Goals Bed Mobility Goal Standby Assistance Transfer Goal Standby Assistance,Front Wheeled Walker Gait Goal Standby Assistance,Front Wheel Walker Gait Distance 150 Other Goals up/down 18 steps L rail ascending SBA Days to Meet Goals 10 Frequency of Treatment Frequency Of Treatment Once a Day Treatment Plan Physical Therapy Treatment Plan Bed Mobility Training,Transfer Training,Gait Training, Therapeutic Exercise,Balance Retraining,Discharge Planning, Neuromuscular Re-ed Other Recommendations and Next Treatment ambulation Focus Recommendations To Nursing Amount of Assist Needed 1 Person Assist Discharge Recommendations PT Discharge Recommendations SNF Rehab Equipment Needed for Home Before FWW if pt goes home Discharge Transportation Needs at Discharge Wheelchair/Cabulance
[2019-11-28] MEDS: MELOXICAM 7.5 MG TABLET 15 MG PO (12:20)
[2019-11-28 13:59] LABS: TSH w/ Reflex to FT4 3.73 uIU/mL (0.47-4.68)
--- NOTE | 2019-11-28 14:10 | DI.CT.S_ITS ---
PROCEDURE: CT KIDNEY URETER BLADDER (KUB) INDICATIONS: Right flank pain, obstructive uropathy persistent? TECHNIQUE: Noncontrast 5 mm thick sections acquired from the diaphragms to the symphysis. 5 mm thick coronal and sagittal reformats were then performed. For radiation dose reduction, the following was used: automated exposure control, adjustment of mA and/or kV according to patient size. COMPARISON: [facility], CT, CT ABDOMEN PELVIS W CON, 11/27/2019, 11:45. FINDINGS: Image quality: Excellent. Lung bases: Coronary artery calcifications are present. Bibasilar atelectasis/scarring. Small right pleural effusion. Urinary system: Right ureteral stent is seen. No hydronephrosis identified. Mild bilateral perinephric stranding. Subcentimeter renal foci, statistically cysts, although technically too small to characterize accurately and therefore nonspecific. 2 mm urolithiasis seen in the right kidney image 44/2. No left urolithiasis. Bladder is decompressed. George catheter incidentally noted. There is redemonstration of right periuterine stranding, unchanged since yesterday. Appendix is not clearly identified however no suspicious pericecal inflammatory changes are seen. Other solid organs: Liver is normal in size. Gallbladder negative . Pancreas is normal in contours. Spleen is normal in size. No adrenal nodules. Peritoneum and bowel: Unenhanced bowel loops demonstrate normal wall thickness and caliber. No free fluid or air. Nodes and vessels: No retroperitoneal or mesenteric adenopathy by size criteria. Aorta and inferior vena cava are normal in caliber. Abdominal wall: No ventral hernias. Pelvis: No free pelvic fluid. No inguinal hernias or adenopathy. Bones: No vertebral body compression fracture. Spondylytic changes and facet arthropathy. Mild bilateral hip joint degeneration. Lateral curvature of the spine noted. IMPRESSION: Status post placement of right ureteral stent. No hydronephrosis identified. Residual 2 mm right renal calculus. Small right pleural effusion and bibasilar atelectasis. This appears slightly increased since yesterday. Coronary artery disease Dictated by: Ishan Michel M.D. on 11/28/2019 at 14:56 Approved by: Ishan Michel M.D. on 11/28/2019 at 15:12
[2019-11-28] MEDS: MEROPENEM 1 GM/50 ML PIGGYBACK IV (14:49)
[2019-11-28] MEDS: SODIUM CHLORIDE 0.9% 1,000 ML 200 ML IV (14:56)
--- NOTE | 2019-11-28 15:11 | CM.DANOTE ---
Addendum entered by Davina Blanchard R.N. 11/28/19 15:40: Cm met with patient again and she stated she doesn't want to go to SNF- She stated she is open to HH but does not want to go to SNF. She currently live alone but her adult son is coming up to be here with his mother and then patients daughter will be coming up as well. Cm/Rn will talk with patients family tomorrow and discuss D/C plan and make sure they will be able to help patient at D/C along with HH Services. Davina Blanchard RN Original Note: DCP Assessment: EMR Reviewed: Patient is a 74 yr old female who was admitted for sepsis. CM/RN met with patient at the bedside and explained role. Patient was in a large amount of pain at time of Cm/Rn meeting and was only able to participate for a few minutes. Patient currently lives in a condo with 17 steps to get into her unit. Patient lives alone and is Independent with all ADL's and drives at baseline. CM/Rn left SNF choice list for patient to review and will talk with patient tomorrow after some time on medication. CM/RN spoke with patients son Zhou and daughter Shruthi both of which are POAs for the patient. Patients son and daughter were very concerned about patients current status and CM/Rn spent 45 minutes on the phone answering questions about patients medical care and discussing D/C plan. Patients daughter Shruthi will be the main model and dye person for the next few days since patients son Zhou is driving here form [facility] and doesn't have great signal. Cm/Rn explained to the patients family for D/C planning purposes we are planning to D/C the patient to a SNF when she is medically stable. CM will need a SNF choice tomorrow to start that process prior to the weekend. They stated understanding and CM/Rn will talk with the patient again this afternoon to get preferred choice. CM/Rn gave family CM contact number to answer any new questions that may arise. Patients family was very concerned about what the timeline will be for patient to D/C. Cm/ RN explained that there is no absolute time frame it will depend on how the patient responds to treatment and how well she recovers. Patients family stated understanding and CM/Rn will call and Check in with Dago Hawkins tomorrow for an update on her mothers condition per her request. I: Medicare and [facility] Medical Plan: D/C to SNF when medically stable- CM need SNF choice to start process- need PASRR to be completed. Davina Blanchard RN Discharge Planning/Care Management CM Discharge Assessment Start: 11/28/19 15:08 Freq: Status: Active Protocol: Document 11/28/19 15:08 HS (Rec: 11/28/19 15:10 HS [id number]) Discharge Planning Assessment Assigned Spearer Davina Blanchard RN DPOA/Assigned Designee Name Shruthi Pathak (daughter) Contact Information [phone] Advance Directives? Yes History Provided By Patient,Family Member,Medical Record Has Patient been admitted in last 30 No days? Prior Living Arrangements House Household Members none Type of transporation used prior to Drives own vehicle admit Is patient alert and oriented? Yes Caregiver for Another No DME Already Rented / Owned Bath Bench,FWW / Walker Patient/Family Preference [facility] Facility Discharge Plan [facility] Facility Referrals Initiated Prison If patient plan is SNF: Has PASSR been No: need PASRR as she gets completed? closer to D/C Medicare Choice List Provided Yes SNF/HH Preference pending patient wanted to look over the list and talk with her daughter Has Agency SNF been contacted No Whiteboard Updated in Patient Room with Yes name and ext. # of Spearer Review Status In Process Next Review Type Continued Stay Review
--- NOTE | 2019-11-28 15:26 | OT.IPNOTE ---
Per nursing to HOLD OT eval today due to tachycardiac HR, OT to check on pt tomorrow.
--- NOTE | 2019-11-28 16:12 | PC.NURSE ---
Evening shift note Pt sitting on bedside commode, reintroduced myself from last night. Bedside report received from MARION Preciado. Pt A/O x2, very tired according to pt. Assisted pt back to bed. RT at bedside to completed EKG- shows AFib RVR and occasional PVC's. HR 110-145 since this nurses shift started at 1500. Pt O2 saturation dropping to 86-88, placed pt back on 2L NC. Notified Dr. Padgett about pt current status, will come to evaluate pt shortly. Bed low and locked, call light within reach, will continue to monitor.
[2019-11-28] MEDS: dilTIAZem 5 MG/ML SDV IV (16:49)
[2019-11-28] MEDS: FUROSEMIDE 20 MG/2 ML VIAL IV (17:38)
--- NOTE | 2019-11-28 18:43 | DI.ECHO.S_ITS ---
[facility]---------+ [facility] +---------+ : : [address] : [place] : : : : [id number] : : : : Phone: [phone]+ Echocardiogram Report + + :Name: EWA SIM Study Date: 11/30/2019 Height: 68 in : :[facility] Weight: 193 lb : : Gender: Female BSA: 2.0 m2 : :: 1945 Age: 74 yrs BP: 130/75 mmHg: :Reason For Study: AFIB : :Ordering Physician: : :HOSPITALISTTOBI Performed By: Savannah Wise : :Referring: CIRO CARRION : + + Interpretation Summary There is mild concentric left ventricular hypertrophy. Left ventricular systolic function is low normal. The ejection fraction is estimated to be 50- 55%. There are no focal wall motion abnormalities. Diastolic parameters suggest probable normal left ventricular diastolic function and normal filling pressures. The right ventricle is normal in size and function. Pulmonary artery pressures cannot be estimated because of the lack of a measurable TR jet velocity but the IVC suggests a CVP of around 8 mmHg. Both atria are normal in size. There is no significant valvular heart disease. The ascending aorta is mildly enlarged. Procedure: A two-dimensional transthoracic echocardiogram with color flow and Doppler was performed. The study quality was technically adequate. There is no prior echocardiogram noted for this patient. The patient was in sinus rhythm with heart rates between 73-76 bpm during the exam. Left Ventricle: The left ventricle is normal in size. There is mild concentric left ventricular hypertrophy. Left ventricular systolic function is low normal. The ejection fraction is estimated to be 50-55%. There are no focal wall motion abnormalities. Diastolic parameters suggest probable normal left ventricular diastolic function and normal filling pressures. Right Ventricle: The right ventricle is normal in size and function. Atria: Both atria are normal in size. There is no Doppler evidence for an interatrial shunt. Mitral Valve: The mitral valve leaflets appear mildly thickened, but open well. There is mild to moderate mitral regurgitation. Aortic Valve: The aortic valve is trileaflet. The aortic valve opens well. There is no aortic valve stenosis. No aortic regurgitation is present. Tricuspid Valve: The tricuspid valve is normal in structure and function. Pulmonary artery pressures cannot be estimated because of the lack of a measurable TR jet velocity but the IVC suggests a CVP of around 8 mmHg. There is trace tricuspid regurgitation. Pulmonic Valve: The pulmonic valve leaflets are thin and pliable; valve motion is normal. There is mild pulmonic regurgitation. There is no significant valvular heart disease. Great Vessels: The aortic root is normal size. The ascending aorta is mildly enlarged. The IVC is dilated (diameter is greater than 2.1 cm) yet it collapses greater than 50% with a sniff. This suggests a right atrial pressure of 8 mm Hg. Pericardium/ Pleura There is no pericardial effusion. There is no pleural effusion. MMode/2D Measurements & Calculations LVIDd: 4.7 cm LVOT diam: 2.0 cm LVIDs: 3.3 cm Ao root diam: 3.5 cm FS: 29.5 % asc Aorta Diam: 3.5 cm EPSS: 1.3 cm Ao Arch Diam (Prox Trans): 2.7 cm IVSd: 1.1 cm LVPWd: 0.94 cm LV hernandez. diameter/BSA (cm/m^2): 2.4 LV sys. diameter/BSA (cm/m^2): 1.7 LA A2 area: 22.4 cm2 RA long axis: 5.1 cm LA A4 area: 16.0 cm2 RA area: 14.8 cm2 LA length (vol): 5.2 cm RA vol: 36.9 ml LA vol: 58.6 ml RA : 18.3 ml/m2 LA vol index: 29.1 ml/m2 IVC diam: 2.3 cm RVD1 (basal): 3.8 cm TAPSE: 2.3 cm Doppler Measurements & Calculations Ao V2 max: 168.3 cm/sec LVOT Max Sriram: 109.0 cm/sec Ao V2 mean: 110.9 cm/sec LV V1 max P.8 mmHg Ao max P.3 mmHg LV V1 VTI: 18.8 cm Ao mean P.7 mmHg KYLIE(I,D): 1.8 cm2 Ao V2 VTI: 32.1 cm KYLIE(V,D): 2.0 cm2 sev ratio: 0.59 KYLIE indexed to BSA (cm^2/m^2): 0.88 MV E max sriram: 101.6 cm/sec PA V2 max: 79.9 cm/sec MV A max sriram: 99.5 cm/sec PA V2 mean: 51.6 cm/sec MV E/A: 1.0 PA mean P.3 mmHg Med Peak E' Sriram: 7.3 cm/sec PA pr(Accel): 5.4 mmHg E/E' med: 14.0 Lat Peak E' Sriram: 11.1 cm/sec E/E' lat: 9.2 E/e' average: 11.6 MV dec time: 0.24 sec SV(MINDA): 57.0 ml Reading Physician:12:54 PM
[2019-11-28] MEDS: dilTIAZem 5 MG/ML SDV 10 MG IV (19:08)
[2019-11-28] MEDS: ROSUVASTATIN 10 MG TABLET PO (21:12)
[2019-11-29] VITALS (13 sets, daily range): BP systolic 113–149; BP diastolic 56–89; PULSE 68–138; RESP 14–31; TEMP 36.3–37; O2SAT 91–100
[2019-11-29] MEDS: DILTIAZEM 125 MG/125 ML PIGGYBACK IV (00:30)
[2019-11-29] MEDS: MEROPENEM 1 GM/50 ML PIGGYBACK IV (01:29)
[2019-11-29 05:18] LABS: Hematocrit 37.1 % (36-46); Hemoglobin 12.2 g/dL (12.0-16.0); Mean Corpuscular Hemoglobin 28.2 PG (26-34); Mean Corpuscular Volume 85.7 fL (80-100); Platelet Count 82 X10^3/uL (150-400); Red Blood Cell Count 4.34 X10^6/uL (4.0-5.2); Red Cell Distribution Width 15.4 % (11.6-14.8)
[2019-11-29 05:28] LABS: Add Manual Diff / Slide Review YES
[2019-11-29 05:29] LABS: White Blood Cell Count 31.7 X10^3/uL (4.5-11.0)
[2019-11-29 05:34] LABS: Alanine Aminotransferase 31 IU/L (<35); Albumin 2.9 g/dL (3.5-5.0); Alkaline Phosphatase 172 U/L (38-126); Aspartate Aminotransferase 32 IU/L (14-36); BUN Creatinine Ratio 30.2 (6-22); Blood Urea Nitrogen 35 mg/dL (7-17); Calcium 8.8 mg/dL (8.4-10.2); Carbon Dioxide 19 mmol/L (22-32); Chloride 114 mmol/L (98-107); Estimated Glomerular Filt Rate 45.7 mL/min (>60); Globulin 2.8 g/dL (1.7-4.1); Glucose 153 mg/dL (80-110); HEMOLYSIS < 15 (0-50); Magnesium 2.3 mg/dL (1.6-2.3); Potassium 3.2 mmol/L (3.4-5.1); Sodium 140 mmol/L (137-145); Total Protein 5.7 g/dL (6.3-8.2)
[2019-11-29 05:46] LABS: Procalcitonin 29.51 ng/mL (<0.5)
[2019-11-29 05:51] LABS: Neutrophils Absolute Manual 29164 /uL (3000-5900); Total Cells Counted 100
[2019-11-29 05:54] LABS: RBC Morphology Normal Morphology
--- NOTE | 2019-11-29 07:55 | P.PN_ITS ---
Subjective Subjective Date Patient Seen: 11/29/19 Interval history: Araceli Myers is a 74-year-old female with a past medical history significant for hypertension, hyperlipidemia, asthma recently placed on prednisone, GERD, and depression who presented to the ED with severe right flank pain and shortness of breath. The patient is resting in bedside chair comfortably. She appears less flushed than yesterday. She is somewhat frustrated and complains about the dinging of her monitors. She has intermittent confusion but is alert oriented x3 when questioned. She complains of mild cough likely due to mild fluid overload from IV fluid resuscitation. Plan to diurese today. Patient heart rhythm converted from atrial fibrillation to sinus rhythm at 2:30 a.m. She complains of mild hea dache. She has no other complaints and denies chest pain, shortness of breath, abdominal pain, nausea, vomiting, fever, chills, diarrhea or constipation. She is voiding via George catheter and eliminating without difficulty. She is up ambulating with assistance. Exam Vital Signs (past 8 hours): - 11/29/19 00:00 11/29/19 01:00 11/29/19 02:07 Temperature 98.1 F Pulse Rate 138 H 92 H 76 Respiratory Rate 24 22 21 Blood Pressure 133/89 119/58 L 113/56 L Pulse Oximetry 94 91 92 11/29/19 04:00 11/29/19 05:00 11/29/19 06:33 Temperature 98.1 F Pulse Rate 78 78 81 Respiratory Rate 31 H 20 21 Blood Pressure 123/62 136/63 142/65 H Pulse Oximetry 94 93 92 Oxygen Delivery Method Room Air Oxygen Flow Rate 0 Narrative Exam Narrative: General: Elderly female lying in bed and in no acute distress, well-developed, well-nourished, appropriately interactive. HEENT: Normocephalic, atraumatic. External ears without defect. Pupils equal, round, and reactive to light. Anicteric sclerae, moist conjunctivae, and no lid lag. Oropharynx free of erythema and cobble stoning with moist mucosa. Neck: Supple with full range of motion. No jugular venous distension. No lymphadenopathy or thyromegaly. Cardiovascular: Regular rate and rhythm without murmurs, rubs, or gallops appreciated. Pulmonary: Clear to auscultation bilaterally with occasional bibasilar crackle and end-expiratory wheeze. No rhonchi. Mild tachypnea with mild use of accessory muscles which is chronic. Abdomen: Soft, obese, bowel sounds present, right flank pain resolved and nontender, nondistended. Extremities: No clubbing, cyanosis, or edema. Skin: Normal temperature, turgor, and texture; no rash, ulcers, or subcutaneous nodules appreciated. Neurological: Cranial nerves grossly intact. Psychiatric: Normal mood an affect. Alert oriented to person, place and time. Mild intermittent confusion. Objective Labs Result Diagrams: 11/29/19 04:50 11/29/19 04:50 Labs: Laboratory Results - last 24 hr 11/28/19 11/28/19 11/28/19 08:09 08:09 10:33 WBC RBC Hgb Hct MCV MCH MCHC RDW Plt Count Neut % (Auto) Lymph % (Auto) [place] % (Auto) Eos % (Auto) Baso % (Auto) Lymph # (Auto) [place] # (Auto) Baso # (Auto) Total Counted Seg Neutrophils % Band Neutrophils % Lymphocytes % (Manual) Monocytes % (Manual) Eosinophils % (Manual) Neutrophils # (Manual) RBC Morphology Sodium 142 Potassium 4.1 Chloride 113 H Carbon Dioxide 16 L BUN 40 H Creatinine 1.68 H Estimated GFR 29.8 L BUN/Creatinine Ratio 23.8 H Glucose 160 H Lactate 3.7 H Calcium 7.9 L Magnesium 2.2 Total Bilirubin AST ALT Alkaline Phosphatase Total Protein Albumin Globulin Albumin/Globulin Ratio Procalcitonin TSH 3.73 11/28/19 11/29/19 11/29/19 10:53 04:50 04:50 WBC 31.7 H* RBC 4.34 Hgb 12.2 Hct 37.1 MCV 85.7 D MCH 28.2 MCHC 33.0 RDW 15.4 H Plt Count 82 L Neut % (Auto) Not Reportable Lymph % (Auto) Not Reportable [place] % (Auto) Not Reportable Eos % (Auto) Not Reportable Baso % (Auto) Not Reportable Lymph # (Auto) Not Reportable [place] # (Auto) Not Reportable Baso # (Auto) Not Reportable Total Counted 100 Seg Neutrophils % 69.0 Band Neutrophils % 23.0 H Lymphocytes % (Manual) 5.0 L Monocytes % (Manual) 2.0 Eosinophils % (Manual) 1.0 L Neutrophils # (Manual) 27511 H RBC Morphology Normal morphology Sodium Potassium Chloride Carbon Dioxide BUN Creatinine Estimated GFR BUN/Creatinine Ratio Glucose Lactate 3.7 H Calcium Magnesium Total Bilirubin AST ALT Alkaline Phosphatase Total Protein Albumin Globulin Albumin/Globulin Ratio Procalcitonin 29.51 H TSH 11/29/19 04:50 WBC RBC Hgb Hct MCV MCH MCHC RDW Plt Count Neut % (Auto) Lymph % (Auto) [place] % (Auto) Eos % (Auto) Baso % (Auto) Lymph # (Auto) [place] # (Auto) Baso # (Auto) Total Counted Seg Neutrophils % Band Neutrophils % Lymphocytes % (Manual) Monocytes % (Manual) Eosinophils % (Manual) Neutrophils # (Manual) RBC Morphology Sodium 140 Potassium 3.2 L Chloride 114 H Carbon Dioxide 19 L BUN 35 H Creatinine 1.16 H Estimated GFR 45.7 L BUN/Creatinine Ratio 30.2 H Glucose 153 H Lactate Calcium 8.8 Magnesium 2.3 Total Bilirubin 1.0 AST 32 ALT 31 Alkaline Phosphatase 172 H D Total Protein 5.7 L Albumin 2.9 L Globulin 2.8 Albumin/Globulin Ratio 1.0 Procalcitonin TSH Assessment & Plan Assessment & Plan narrative: Araceli Myers is a 74-year-old female with a past medical history significant for hypertension, hyperlipidemia, asthma recently placed on prednisone, GERD, and depression who presented to the ED with severe right flank pain and shortness of breath. 1. Acute severe sepsis, present on admission. Resolved. -Patient presented with tachycardia (HR 110), tachypnea (RR 28), febrile (T 101.5? F), WBC 8.6, lactate 9.0, procalcitonin 38.81 with end-organ dysfunction of acute kidney injury and hypotension (responsive to IV fluids) with source right-sided obstructive uropathy. -Early goal-directed therapy met including: Broad-spectrum IV antibiotics and IV fluid resuscitation. -Continued to trend lactic acid until under 2.0. 2. Acute right-sided obstructive uropathy with E. coli pyelonephritis and bacteremia, present on admission. Active. -Patient presented with progressive worsening right-sided flank pain, fever, chills, rigors, and shortness of breath. -CT abdomen and pelvis with contrast demonstrated obstructing right UPJ stone with mild to moderate right-sided hydronephrosis and perinephric fat stranding and non-obstructing stone in right kidney. No left-sided renal stone or hydronephrosis. -EKG demonstrated sinus rhythm with right bundle branch block and no previous comparison available. Continue to monitor closely on telemetry. Continue monitor electrolytes and replete as necessary given amount of IV fluid resuscitation. -Initial WBC 8.6 and procalcitonin 38.81. WBC and procalcitonin trending up and likely peaking at 30.9 and 51.22, respectively. Continue to monitor WBC and procalcitonin daily. -Blood cultures x2 and urine culture grew pansensitive E coli. -Initial lactic acid highly elevated at 9.0 and trended down with treatment of acute infection and IV fluid resuscitation and finally normalized at 1.7. Due to persistent lactic acidosis and right flank pain ordered CT KUB which demonstrated resolution of hydronephrosis and patency of ureteral stent. -Received 4 L boluses of LR in ED. Continued IV fluid hydration until adequately hydrated then discontinued. Plan to diurese today with furosemide 40 mg IV x1. -Received vancomycin with dosing per pharmacist x1 and Zosyn 3.375 g IV x1 in ED. Switched Zosyn 3.375 g IV every 6 hours to meropenem 1 g every 12 hours pending blood and urine culture sensitivities due to persistent tachycardia and subsequent new onset atrial fibrillation with persistent right flank pain and possibility of MDR. -Consulted urology, Dr. Rios, who performed cystoscopy and right ureteral stent placement. Plan for follow-up in 1-2 weeks with urology to plan removal of ureteral stent. 3. New onset atrial fibrillation, not present on admission. Resolved. -Secondary to underlying infection and possible mild fluid overload from IV fluid resuscitation. -Patient had persistent tachycardia that subsequently converted to atrial fibrillation yesterday 11/28/2019. -Received diltiazem 10 mg IV x1 and started on diltiazem gtt. Patient converted from atrial fibrillation to sinus rhythm at 0230 today 11/29/2019. Did not start oral rate control as this is likely driven by infection. If patient has recurrence will start oral rate control medication. -Ordered echocardiogram, pending. -Continue to monitor heart rate closely on telemetry. 4. Acute metabolic encephalopathy, present on admission. Resolved. -Patient had waxing and waning mentation in the ED. Initial GCS 10. Patient's mentation improved with IV antibiotics and IV fluid hydration and encephalopathy had resolved by the time she arrived to the ICU. -Continue to keep patient awake, alert and stimulated throughout the day and allow for restful sleep at night with minimal interruptions. Continue to reor ient frequently. Patient has mild intermittent confusion. 5. Acute kidney injury, present on admission. Active. -Initial creatinine 1.88. Unclear baseline creatinine. Creatinine trending down and nearly normalized at 1.16. -Avoid nephrotoxic agents. -Received 4 L boluses of LR in ED. Continue IV fluid hydration with normal saline at 100 mL/hr until adequately hydrated then will discontinue. -Continue to monitor creatinine daily. 6. Mild transaminitis, acuity unclear but likely acute, present on admission. Resolving. -Likely secondary to biliary stasis of infection versus fatty liver disease as evident on CT. -Initial LFTs: Total bilirubin 1.4, AST 103, ALT 62 and alkaline phosphatase 188. Total bilirubin and alkaline phosphatase elevation resolved. AST and ALT elevation possibly due to fatty liver disease. -Continue to monitor LFTs periodically. 7. Acute hypotension in setting of chronic hypertension, present on admission. Resolved. -Secondary to sepsis and infection. -Patient presented hypotensive but was responsive to IV fluids and never went to septic shock requiring vasopressors. -Received 4 L boluses of LR in ED. Continued IV fluid hydration until adequately hydrated then discontinued. -Held home amlodipine due to hypotension. Restarted and continue amlodipine 5 mg daily. 8. Asthma with recent exacerbation, acute on chronic, present on admission. Stable. -Patient recently started on prednisone 10 mg daily for acute asthma exacerbation. Held glucocorticoids at this time given sepsis and infection. -ABG: PH 7.41, pCO2 17.6, PO2 72, HC03 11 SpO2 95% on room air. -Continue respiratory therapy evaluation and treatment. Continue albuterol nebulizers every 2 hours as needed for shortness of breath or wheezing. -Continue supplemental oxygen as necessary to maintain oxygen saturations 88- 92%. Patient currently off oxygen. 9. Constipation with fecal impaction, acute on chronic, present on admission. Resolved. -CT abdomen and pelvis with contrast demonstrated constipation and fecal impaction without abnormal bowel wall thickening, free fluid or free air. -Continue bowel regimen with MiraLax 17 g daily and Colace 100 mg twice daily. Patient has now had several regular bowel movements. 10. Hyperlipidemia, chronic, present on admission. Stable. -Continue home rosuvastatin 10 mg daily. 11. GERD, chronic, present on admission. Stable. -Continue pantoprazole 40 mg daily. 12. Depression, chronic, present on admission. Stable. -Continue duloxetine 60 mg daily. Code status: DNR/DNI. Patient designates venu Myers as surrogate decision maker and DPOA VTE prophylaxis: SQ Heparin, SCDs Disposition: Patient will likely discharge home with home health versus residential facility for rehabilitation in 1-2 days once infection has been treated adequately. Quality VTE Deep Vein Thrombosis/Pulmonary Embolism Present on Admission: No
[2019-11-29 08:30] LABS: Lactate (Lactic Acid) 1.7 mmol/L (0.7-2.1)
--- NOTE | 2019-11-29 08:52 | OT.IP.EVAL ---
Current Diagnoses Sepsis, unspecified organism (11/27/19) Calculus of kidney (11/27/19) Urinary tract infection, site not specified (11/27/19) Severe sepsis with septic shock (11/27/19) Surgery Performed Operation Date: 11/27/19 16:15 Actual Procedures p Cystoscopy/ Placement Right Ureteral Stent(Right) - Bowen Rios MD Past Medical History (Last Updated 11/27/19 @ 18:11 by Lisbeth Padgett DO) Ankle fracture, left (Acute) Asthma (Acute) Depression (Acute) GERD (gastroesophageal reflux disease) (Acute) Hyperlipidemia (Acute) Hypertension (Acute) Osteoarthritis (Acute) Surgical History (Last Updated 11/27/19 @ 18:11 by Lisbeth Padgett DO) History of cataract removal with insertion of prosthetic lens (Acute) History of left inguinal hernia repair (Acute) History of tonsillectomy (Acute) Occupational Therapy Inpatient Evaluation/Re-Eval M1 PT/OT-IP Prior Functional Status Start: 11/29/19 09:44 Freq: NEEDED Status: Active Protocol: Document 11/29/19 08:52 [facility] (Rec: 11/29/19 10:16 [facility] [id number]) Medical Review Prior Functional Status Medical History Reviewed Yes Communication able to make needs known Mobility and Gait pt stated that she is independent with all mobilities and ambulation without AD; pt was still able to drive prior to hospitalization Activities of Daily Living and IADL's Completely independent for ADl and IADl and in the past few weeks getting progressively weaker and having trouble to stand and needing to lean against the wall for support. Social History Household Members none Living Arrangements House Number of Floors (Floors) One Floor Number of Stairs To Enter/Railing? 18 steps to enter with L rail ascending Home Environment Standard Height Toilet,Walk in Shower Home Equipment Shower Seat without Backrest M2 OT-IP Current Condition Start: 11/29/19 09:44 Freq: Status: Active Protocol: Document 11/29/19 08:52 [facility] (Rec: 11/29/19 10:16 [facility] [id number]) Occupational Therapy Current Condition Current Condition Evaluation Date 11/29/19 Treatment Diagnosis Sepsis, UTI, decreased cognition Diagnosis Onset Date 11/27/19 M3 OT- IP Subjective and Pain Start: 11/29/19 09:44 Freq: Status: Active Protocol: Document 11/29/19 08:52 [facility] (Rec: 11/29/19 10:16 [facility] [id number]) OT- Subjective Occupational Therapy Visit Type Type Initial Evaluation Visit Start Time 08:52 Visit Stop Time 09:43 Total Visit Minutes 51 Occupational Therapy Visit Comments Patient Comments Pt sitting in the recliner and friend there for part of OT session. Patient/Caregiver Goals Pt open to going to skilled rehab but would rather go home . OT Pain Assessment Pain When Pain Assessed At Rest Pain Present Pain Present Pain Reported Location Head Intensity 4 Scale Used Numeric (0 - 10) M4 OT- IP ADL's Start: 11/29/19 09:44 Freq: Status: Active Protocol: Document 11/29/19 08:52 [facility] (Rec: 11/29/19 10:16 [facility] [id number]) OT PSL-Rsta-Ojcbuaj Comments OT Self-Feeding Comments Noted while pt brushing her teeth that she spit out particles of food. Therefore educated her on making sure to use her tongue to check if all the food is out of her mouth after meals and to be sure to alternate between water and food. OT ADL-Grooming General Evaluation Grooming Ability Standby Assistance Comments OT Grooming Comments Pt vc for look for items on the counter and cues to brush the right side of her hair. OT ADL-Oral Care General Eval Oral Care Ability Independent OT ADL-Dressing General Eval Lower Body Dressing Ability Moderate Assistance Comments OT Dressing Comments Pt needing assist to nikia her socks and able to cross her legs but struggles to doff her socks. OT ADL-Toileting General Evaluation Toileting Ability Maximum Assistance Areas Needing Assistance Perform Perineal Hygiene Comments OT Toileting Comments Pt unable to reach effectively and needing assist to help wipe when having pt try to wipe from the back. Pt getting her left arm tangled on the FWW initially. OT ADL-Bathing Comments OT Bathing Comments NOt at this time. M5 OT- IP IADL's Start: 11/29/19 09:44 Freq: Status: Active Protocol: Document 11/29/19 08:52 [facility] (Rec: 11/29/19 10:16 [facility] [id number]) OT-Instrumental Activities of Daily Living Home Safety Awareness Home Safety Comments Pt having trouble with her train of thought and with cues and able to grossly answer the questions. Pt knew to get a fire extinguisher or with cues to call 911. however pt not able to recall how to use the fire extinguisher. Medication Management Medication Management Comments At this time due to pt's confusion, would be best to have someone assist her for these needs. Money Management Money Management Comments At this time due to pt's confusion, would be best to have someone assist her for these needs. Meal Preparation Meal Preparation Comments At this time due to pt's confusion and decreased activity tolerance, would be best to have someone assist her for these needs. Industrial Truck Mechanic Industrial Truck Mechanic Comments At this time due to pt's confusion and decreased activity tolerance, would be best to have someone assist her for these needs. Driving Driving Concerns Identified Regarding Safety Driving Comments Recommend no driving at this time and pt confused and not problem solving well at this time due to her UTI and sepsis . M6 OT- IP Functional Cognition Start: 11/29/19 09:44 Freq: Status: Active Protocol: Document 11/29/19 08:52 [facility] (Rec: 11/29/19 10:16 [facility] [id number]) Cognitive Factors Limiting Selfcare Function Cognitive Ability Level of Alertness Alert,Confusional State Patient Orientation Name Attention Span Ability Capable of Focused Attention, Unable to Sustain Attention Ability to Follow Commands Able to Follow One Step Commands with Increased Time, Able to Follow One Step Commands with Repetition Memory Description Short Term Impaired,Sleeve Bottom [place]eller Impaired,Working Impaired Safety Awareness Underestimates Need for Assistance Problem Solving Ability Unable to Identify Errors, Needs Assist to Identify Solutions Cognitive Comments Cognitive Assessment Comments Pt not thinking clearly and having to have cues to help find items on the counter for grooming needs. Pt neglected to brush the right side of her hair. Pt not able to recall that she has had diarrhea and is not constipated. Even after the nurse explained to her situation for her bowels , after a few minutes , pt not able to recall. At times pt would perseverate on answers and when asking about house safety would initially keep saying call 911 and then when able to re- direct pt and then able to state more specific answers. OT- Vision and Hearing OT- Hearing Assessment OT- Hearing Assessment WFL OT- Vision Assessment Visual Acuity Glasses All The Time Vision Assessment Comments Pt states wears glasses but not wanting to wear her glasses that were brought to her. M7 OT- IP Mobility and Balance Start: 11/29/19 09:44 Freq: Status: Active Protocol: Document 11/29/19 08:52 [facility] (Rec: 11/29/19 10:16 [facility] [id number]) OT-Transfer Assessment Sit to and From Stand Sit to and from Stand Contact Guard Assistance, Minimal Assistance Transfers Transfer Ability Contact Guard Assistance Technique Transfer Destination Chair,Toilet Devices Transfer Assistive Devices Gait Belt,Front Wheeled Walker Comments Mobility Comments Pt needing cues to push up from the recliner with her hands and also reach back before sitting. Pt able to stand for 2 minutes at the sink before getting tired and needing to sit. Pt's o2 on RA initially started at 91% and at the end of the session increased to 96%. OT- Gait Assessment Comments Gait Ability Comments CGA with FWW. OT- Balance Assessment Sitting Balance and Reactions Static Sitting Balance Ability Normal Dynamic Sitting Balance Ability Good Standing Balance and Reactions Static Standing Balance Ability Fair M8 OT- IP Objective Assessments Start: 11/29/19 09:44 Freq: Status: Active Protocol: Document 11/29/19 08:52 [facility] (Rec: 11/29/19 10:16 [facility] [id number]) OT Gross Range of Motion Upper Extremity Range of Motion Assessment Within Functional Limits OT Strength Upper Extremity Strength Assessment Within Functional Limits M9 OT- IP Assessment and Plan Start: 11/29/19 09:44 Freq: Status: Active Protocol: Document 11/29/19 08:52 [facility] (Rec: 11/29/19 10:16 [facility] [id number]) OT Summary Assessment and Plan Potential Rehabilitation Potential Good Analytic Complexity at Evaluation Low Summary OT Impairments Functional Cognition, Functional Mobility,Self- Feeding,Grooming,Dressing, Toileting,Bathing,Toilet Transfers,Shower Transfers, Activity Tolerance Progress Towards Goals Slow Progress due to Medical Issues,Slow Progress due to Activity Tolerance,Slow Progress due to Cognition Assessment Summary Pt low complexity and here due to UTI and sepsis. Her main barriers are decreased functional cognition, 18 steps in order to get into her place, decreased activity tolerance and now needing one person to assist with all her needs. Pt would benefit from skilled rehab as pt currently far from her baseline of being completely independent with all needs and actively walking 3 times a days . Goals Self-Feeding Goal Independent Grooming Goal Independent Dressing Goal Independent Toileting Goal Independent Bathing Goal Independent Toilet Transfer Goal Independent Shower Transfer Goal Independent Patient/Caregiver Education Goal Caregiver Independent Assisting Patient Days to Meet Goals 15 Frequency of Treatment Frequency Of Treatment Once a Day Treatment Plan OT Treatment Plan ADL Training,Functional Cognition Training,Functional Mobility,Patient/Family Education,Discharge Planning Other Treatment Recommendations and Next Shower, SLUMS when pt clears Treatment Focus more. Discharge Recommendations OT Discharge Recommendations SNF Rehab Other Discharge Recommendations If pt insisting on going home will need 24/7 assist , mainly assist for waking hours as pt is very confused at this time and decreased activity tolerance and now needing use of FWW for mobility needs. Home Equipment Needs FWW versus 4WW Transportation Needs at Discharge Private Vehicle
[2019-11-29] MEDS: POTASSIUM CHLORIDE 20 MEQ TAB 40 MEQ PO ×2 (10:02→17:02)
[2019-11-29] MEDS: ACETAMINOPHEN 325 MG TABLET 650 MG PO (10:02)
[2019-11-29] MEDS: PANTOPRAZOLE 40 MG TABLET PO (10:02)
[2019-11-29] MEDS: DULOXETINE 30 MG CAPSULE 60 MG PO (10:05)
[2019-11-29] MEDS: MELOXICAM 7.5 MG TABLET 15 MG PO (10:06)
[2019-11-29] MEDS: AMLODIPINE 5 MG TABLET PO (10:06)
[2019-11-29] MEDS: ALBUTEROL/IPRATROPIUM 3 ML AMPUL INH ×2 (10:06→20:30)
[2019-11-29] MEDS: CEFTRIAXONE 2 GM/50 ML FROZ.PIGGY IV (10:08)
--- NOTE | 2019-11-29 11:15 | PT.IPTN ---
Current Diagnoses Sepsis, unspecified organism (11/27/19) Calculus of kidney (11/27/19) Urinary tract infection, site not specified (11/27/19) Severe sepsis with septic shock (11/27/19) Surgery Performed Operation Date: 11/27/19 16:15 Actual Procedures p Cystoscopy/ Placement Right Ureteral Stent(Right) - Bowen Rios MD Physical Therapy Treatment Note M2 PT-IP Current Condition Start: 11/28/19 13:29 Freq: NEEDED Status: Active Protocol: Document 11/28/19 11:33 AB (Rec: 11/28/19 13:44 AB [id number]) Physical Therapy Current Condition Current Condition Evaluation Date 11/28/19 Treatment Diagnosis sepsis; UTI; difficulty in walking Onset Date 11/27/19 M3 PT-IP Subjective Start: 11/28/19 13:29 Freq: NEEDED Status: Active Protocol: Document 11/29/19 11:15 AB (Rec: 11/29/19 12:44 AB [id number]) Subjective Physical Therapy Visit Type Type Treatment Note Visit Start Time 11:15 Visit Stop Time 11:39 Total Visit Minutes 24 Number of FUSE CUTTER Visits 0 Physical Therapy Visit Comments Patient Comments pt is agreeable to do PT M4 PT-IP Mobility and Gait Start: 11/28/19 13:29 Freq: NEEDED Status: Active Protocol: Document 11/29/19 11:15 AB (Rec: 11/29/19 12:44 AB [id number]) PT-Transfer Assessment Sit to and From Stand Sit to and from Stand Minimal Assistance,Moderate Assistance,1 Person Assistance ,Use of Upper Extremities Equipment Transfer Assistive Device Gait Belt,Front Wheeled Walker Orthotic/Prosthetic Devices or Brace: No Gait Assessment Gait Gait Assistance Required: Contact Guard Assist,Minimum Assistance,1 Person Assist Distance (Feet) 40 Able to Maintain Weight Bearing Status Yes During Gait Assistive Devices Assistive Device Gait Belt,Front Wheeled Walker Orthotic/Prosthetic Devices or Brace: No Gait Deviations General Gait Pattern Decreased Stride Length, Decreased Feet Clearance Factors Limiting Gait Function Factors Limiting Gait Function Decreased Activity Tolerance, Decreased Strength,Poor Balance,Poor Safety Awareness, Respiratory Distress Comments Gait Comments O2 sat at room air prior to ambulation: 92% HR 76 bpm. pt completed sit to stand min to mod A and cues. Pt ambulated in room 30+40 ft using FWW CGA to min A and cues. O2 sat during ambulation: 89-92% HR: 77-82bpm positioned pt back on chair. call light within reach and chair alarm on. left pt with friend in room. M5 PT-IP Objective Assessments Start: 11/28/19 13:29 Freq: NEEDED Status: Active Protocol: Document 11/28/19 11:33 AB (Rec: 11/28/19 13:44 AB [id number]) Orientation Orientation/Cognition Level of Alertness Alert Orientation Name Safety Awareness Decreased Safety Awareness Gross Range of Motion Lower Extremity ROM Assessment Within Functional Limits Strength Lower Extremity Strength Assessment Bilaterally Impaired Hip 3+/5 Knee 4-/5 Sensation Assessment Sensation Gross Sensation WNL Muscle Tone Muscle Tone WNL Yes M6 PT-IP Treatment Start: 11/28/19 13:29 Freq: NEEDED Status: Active Protocol: Document 11/29/19 11:15 AB (Rec: 11/29/19 12:44 AB [id number]) Physical Therapy Treatment Education Education Provided Safety M7 PT-IP Assessment and Plan Start: 11/28/19 13:29 Freq: NEEDED Status: Active Protocol: Document 11/29/19 11:15 AB (Rec: 11/29/19 12:44 AB [id number]) PT Summary Assessment and Plan Potential Rehabilitation Potential Good Summary Impairments ROM,Strength,Balance, Coordination,Cognition,Bed Mobility,Transfers,Gait, Activity Tolerance Progress Towards Goals Slow Progress due to Activity Tolerance Assessment Summary pt is progressing with mobility and able to ambulate today and O2 sat during ambulation at room air 89-92% and HR 77-82 bpm. pt continues to present decrease activity tolerance with (+) SOB during mobility. pt lives alone and will not have assistance at home and will need to be more independent than current level. d/c plan depending on progress but at this time, pt may require SNF rehab. Goals Bed Mobility Goal Standby Assistance Transfer Goal Standby Assistance,Front Wheeled Walker Gait Goal Standby Assistance,Front Wheel Walker Gait Distance 150 Other Goals up/down 18 steps L rail ascending SBA Days to Meet Goals 10 Frequency of Treatment Frequency Of Treatment Once a Day Treatment Plan Physical Therapy Treatment Plan Bed Mobility Training,Transfer Training,Gait Training, Therapeutic Exercise,Balance Retraining,Discharge Planning, Neuromuscular Re-ed Other Recommendations and Next Treatment ambulation Focus Recommendations To Nursing Amount of Assist Needed 1 Person Assist Discharge Recommendations PT Discharge Recommendations SNF Rehab Equipment Needed for Home Before FWW if pt goes home Discharge Transportation Needs at Discharge Wheelchair/Cabulance
--- NOTE | 2019-11-29 11:28 | PM.PN.1 ---
Subjective Subjective Date Patient Seen: 11/29/19 Time Patient Seen: 11:28 Interval history: During the interval she developed AFib with rapid ventricular response last evening. She converted easily with pharmacologic agents. She remained hemodynamically stable. She is walking with a 4 point walker and was up brushing her teeth today. She complains of weakness and fatigue. Right flank pain is improved. Exam Vital Signs (past 8 hours): - 11/29/19 04:00 11/29/19 05:00 11/29/19 06:33 Temperature 98.1 F Pulse Rate 78 78 81 Respiratory Rate 31 H 20 21 Blood Pressure 123/62 136/63 142/65 H Pulse Oximetry 94 93 92 11/29/19 07:28 11/29/19 08:43 11/29/19 10:06 Temperature 98.6 F Pulse Rate 77 112 H Respiratory Rate 20 24 Blood Pressure 149/65 H Pulse Oximetry 94 96 100 Oxygen Delivery Method Room Air Oxygen Flow Rate 0 Narrative Exam Narrative: Not repeated. Objective Labs Result Diagrams: 11/29/19 04:50 11/29/19 04:50 Labs: Laboratory Results - last 24 hr 11/28/19 11/29/19 11/29/19 10:33 04:50 04:50 WBC 31.7 H* RBC 4.34 Hgb 12.2 Hct 37.1 MCV 85.7 D MCH 28.2 MCHC 33.0 RDW 15.4 H Plt Count 82 L Neut % (Auto) Not Reportable Lymph % (Auto) Not Reportable [place] % (Auto) Not Reportable Eos % (Auto) Not Reportable Baso % (Auto) Not Reportable Lymph # (Auto) Not Reportable [place] # (Auto) Not Reportable Baso # (Auto) Not Reportable Total Counted 100 Seg Neutrophils % 69.0 Band Neutrophils % 23.0 H Lymphocytes % (Manual) 5.0 L Monocytes % (Manual) 2.0 Eosinophils % (Manual) 1.0 L Neutrophils # (Manual) 52439 H RBC Morphology Normal morphology Sodium Potassium Chloride Carbon Dioxide BUN Creatinine Estimated GFR BUN/Creatinine Ratio Glucose Lactate Calcium Magnesium Total Bilirubin AST ALT Alkaline Phosphatase Total Protein Albumin Globulin Albumin/Globulin Ratio Procalcitonin 29.51 H TSH 3.73 11/29/19 11/29/19 04:50 08:09 WBC RBC Hgb Hct MCV MCH MCHC RDW Plt Count Neut % (Auto) Lymph % (Auto) [place] % (Auto) Eos % (Auto) Baso % (Auto) Lymph # (Auto) [place] # (Auto) Baso # (Auto) Total Counted Seg Neutrophils % Band Neutrophils % Lymphocytes % (Manual) Monocytes % (Manual) Eosinophils % (Manual) Neutrophils # (Manual) RBC Morphology Sodium 140 Potassium 3.2 L Chloride 114 H Carbon Dioxide 19 L BUN 35 H Creatinine 1.16 H Estimated GFR 45.7 L BUN/Creatinine Ratio 30.2 H Glucose 153 H Lactate 1.7 Calcium 8.8 Magnesium 2.3 Total Bilirubin 1.0 AST 32 ALT 31 Alkaline Phosphatase 172 H D Total Protein 5.7 L Albumin 2.9 L Globulin 2.8 Albumin/Globulin Ratio 1.0 Procalcitonin TSH Assessment & Plan Assessment & Plan narrative: Assessment: 1. Pansensitive E coli urosepsis. 2. Presentation with 9 x 14 mm right proximal ureteral calculus. Post stent placement CT indicates likely disruption of the stone. Plan: 1. Recommend a full 72 hours of culture directed antibiotic therapy followed by at least 2 week course of appropriate oral period of fluoroquinolones such as ciprofloxacin 250 mg b.i.d. should be adequate. 2. We will re-stage and image as outpatient and plan either stent removal with close observation versus laser or extra corporal lithotripsy depending upon stone fragment size remaining. 3. Please direct her [address] [place] [address] urology for outpatient appointment in about 2 weeks following discharge. Quality VTE Deep Vein Thrombosis/Pulmonary Embolism Present on Admission: No
[2019-11-29] MEDS: guaiFENesin ER 600 MG TAB 1200 MG PO ×2 (11:46→20:42)
--- NOTE | 2019-11-29 11:55 | CM.DPC ---
Addendum entered by Davina Blanchard R.N. 11/29/19 14:50: CM/RN Spoke with patient this afternoon she was alert and oriented x3 at time of CM/RN visit. patient when asked stated she does not want to go to SNF she wants to go home with HH services. CM/RN will get [facility] signed and contact [facility]. CM/RN attempted to call patients daughter Shruthi left a message for her to call back....CM will let her know her mother is being moved out of ICU to Acute care status as well as to let her know about her mothers choice for D/C plan. Davina Blanchard RN Original Note: DCP Continued: EMR reviewed: CM/RN spoke with patients daughter and son at length about patients status. Patient is currently doing better today but has been struggling with altered mental status. Patient is currently clear when CM/RN met with patient she was alert and oriented x3. Patient stated again today she wanted to go home with HH. When CM/Rn explained this to the family they were not happy about the D/C plan for home and were concerned that they weren't called yesterday when patient had an episode of Afib. Family was talked to and Cm/Rn explained that patient was not shocked and was only given medication she already takes and no other medications were used so no family was needed to be called. Patient was also alert and oriented and was able to make her own medical choices at the time so family was not needed to be called. CM/Rn explained that the patient is doing better today and that she may be able to D/C tomorrow or the next day if she continues to do well. CM/RN will attempt to talk with patient again today about SNF options as well as HH to determine a D/C plan. CM/RN will then update the family once D/C plan is determined. Davina Blanchard RN
[2019-11-29] MEDS: FUROSEMIDE 40 MG/4 ML VIAL IV (11:59)
[2019-11-29 16:57] LABS: Hemoglobin A1C% w Est Avg Glu 6.7 % (4.0-6.0)
[2019-11-29] MEDS: ROSUVASTATIN 10 MG TABLET PO (20:42)
[2019-11-30] VITALS (7 sets, daily range): BP systolic 120–164; BP diastolic 60–86; PULSE 72–81; RESP 16–22; TEMP 36.2–37; O2SAT 93–98
--- NOTE | 2019-11-30 01:07 | PC.NURSE ---
Pt resting comfortably w/no c/o of pain. A&Ox4 - explains that she came to hospital due to feeling, very sick and shaky. Dry non-productive cough. VSS at this time.
[2019-11-30] MEDS: ACETAMINOPHEN 325 MG TABLET 650 MG PO ×2 (05:49→12:05)
[2019-11-30 06:34] LABS: Add Manual Diff / Slide Review YES; Hematocrit 36.3 % (36-46); Mean Corpuscular HGB Conc 33.1 % (30-36); Mean Corpuscular Hemoglobin 27.6 PG (26-34); Mean Corpuscular Volume 83.6 fL (80-100); Platelet Count 81 X10^3/uL (150-400); Red Blood Cell Count 4.34 X10^6/uL (4.0-5.2); Red Cell Distribution Width 15.7 % (11.6-14.8)
[2019-11-30 06:36] LABS: Alanine Aminotransferase 35 IU/L (<35); Albumin 2.9 g/dL (3.5-5.0); Alkaline Phosphatase 262 U/L (38-126); Aspartate Aminotransferase 42 IU/L (14-36); BUN Creatinine Ratio 30.9 (6-22); Bilirubin Total 1.6 mg/dL (0.2-1.3); Blood Urea Nitrogen 30 mg/dL (7-17); Calcium 8.9 mg/dL (8.4-10.2); Carbon Dioxide 22 mmol/L (22-32); Chloride 109 mmol/L (98-107); Estimated Glomerular Filt Rate 56.1 mL/min (>60); Globulin 2.9 g/dL (1.7-4.1); Glucose 131 mg/dL (80-110); HEMOLYSIS < 15 (0-50); Magnesium 1.8 mg/dL (1.6-2.3); Potassium 3.6 mmol/L (3.4-5.1); Sodium 138 mmol/L (137-145); Total Protein 5.8 g/dL (6.3-8.2)
[2019-11-30 06:47] LABS: Neutrophils Absolute Manual 21840 /uL (3000-5900); Total Cells Counted 100
[2019-11-30 06:48] LABS: RBC Morphology Normal Morphology
[2019-11-30 06:57] LABS: Procalcitonin 14.26 ng/mL (<0.5)
--- NOTE | 2019-11-30 07:31 | P.PN_ITS ---
Subjective Subjective Date Patient Seen: 11/30/19 Interval history: Araceli Myers is a 74-year-old female with a past medical history significant for hypertension, hyperlipidemia, asthma recently placed on prednisone, GERD, and depression who presented to the ED with severe right flank pain and shortness of breath. The patient is resting in bed comfortably. She just showered and appears to be recovering well from her infection. Her infectious markers are trending downward and she will likely be ready for discharge in 1-2 days. Patient complains of mild productive cough. She also complains of constipation, however, she has had 6 bowel movements since she was admitted. She has no other complaints and denies chest pain, shortness of breath, abdominal pain, nausea, vomiting, fever, chills, or diarrhea. She is voiding without difficulty. She is up ambulating with assistance. Discussed patient's goals of care with her and her ex- at bedside and patient is adamant that she is DNR/DNI and face with life or choice made the decision to have the ureteral stent placement but does not feel as though she would choose that again and felt as though she was confused and did not understand the repercussions of her decision. She reiterates that she does not want heroic measures taken. Discussed her capacity to make decisions in which was deemed in the ED and currently has the capacity to make her decisions. Patient's family was on a conference call while patient made the decision to proceed forward with cystoscopy and ureteral stent placement and was in agree ment with treatment course. However, patient's family constantly questions why she is having antibiotics and medications given to treat infection although patient is in agreement with these. Exam Vital Signs (past 8 hours): - 11/30/19 00:11 11/30/19 04:00 11/30/19 06:18 Temperature 98.2 F 97.1 F L 98.6 F Pulse Rate 81 80 81 Respiratory Rate 20 16 18 Blood Pressure 120/60 164/80 H 145/76 H Pulse Oximetry 96 98 93 Oxygen Delivery Method Room Air Oxygen Flow Rate 0 Narrative Exam Narrative: General: Elderly female lying in bed and in no acute distress, well-developed, well-nourished, appropriately interactive. HEENT: Normocephalic, atraumatic. External ears without defect. Pupils equal, round, and reactive to light. Anicteric sclerae, moist conjunctivae, and no lid lag. Oropharynx free of erythema and cobble stoning with moist mucosa. Neck: Supple with full range of motion. No jugular venous distension. No lymphadenopathy or thyromegaly. Cardiovascular: Regular rate and rhythm without murmurs, rubs, or gallops appreciated. Pulmonary: Clear to auscultation bilaterally with end-expiratory wheeze and occasional upper airway rhonchi. No crackles. Mild tachypnea with mild use of accessory muscles which is chronic. Abdomen: Soft, obese, bowel sounds present, right flank pain resolved and nontender, nondistended. Extremities: No clubbing or cyanosis. Mild peripheral edema, improving. Skin: Normal temperature, turgor, and texture; no rash, ulcers, or subcutaneous nodules appreciated. Neurological: Cranial nerves grossly intact. Psychiatric: Normal mood an affect. Alert oriented to person, place and time. Mild cognitive impairment with short-term memory recall deficit. Objective Labs Result Diagrams: 11/30/19 06:16 11/30/19 06:16 Labs: Laboratory Results - last 24 hr 11/29/19 11/29/19 11/30/19 04:50 08:09 06:16 WBC 24.0 H RBC 4.34 Hgb 12.0 Hct 36.3 MCV 83.6 MCH 27.6 MCHC 33.1 RDW 15.7 H Plt Count 81 L Neut % (Auto) Not Reportable Lymph % (Auto) Not Reportable [place] % (Auto) Not Reportable Eos % (Auto) Not Reportable Baso % (Auto) Not Reportable Lymph # (Auto) Not Reportable [place] # (Auto) Not Reportable Baso # (Auto) Not Reportable Total Counted 100 Seg Neutrophils % 84.0 H Band Neutrophils % 7.0 Lymphocytes % (Manual) 3.0 L Monocytes % (Manual) 6.0 Neutrophils # (Manual) 44838 H RBC Morphology Normal morphology Sodium Potassium Chloride Carbon Dioxide BUN Creatinine Estimated GFR BUN/Creatinine Ratio Glucose Hemoglobin A1c 6.7 H Lactate 1.7 Calcium Magnesium Total Bilirubin AST ALT Alkaline Phosphatase Total Protein Albumin Globulin Albumin/Globulin Ratio Procalcitonin 11/30/19 11/30/19 06:16 06:16 WBC RBC Hgb Hct MCV MCH MCHC RDW Plt Count Neut % (Auto) Lymph % (Auto) [place] % (Auto) Eos % (Auto) Baso % (Auto) Lymph # (Auto) [place] # (Auto) Baso # (Auto) Total Counted Seg Neutrophils % Band Neutrophils % Lymphocytes % (Manual) Monocytes % (Manual) Neutrophils # (Manual) RBC Morphology Sodium 138 Potassium 3.6 Chloride 109 H Carbon Dioxide 22 BUN 30 H Creatinine 0.97 Estimated GFR 56.1 L BUN/Creatinine Ratio 30.9 H Glucose 131 H Hemoglobin A1c Lactate Calcium 8.9 Magnesium 1.8 Total Bilirubin 1.6 H AST 42 H ALT 35 H Alkaline Phosphatase 262 H D Total Protein 5.8 L Albumin 2.9 L Globulin 2.9 Albumin/Globulin Ratio 1.0 Procalcitonin 14.26 H Assessment & Plan Assessment & Plan narrative: Araceli Myers is a 74-year-old female with a past medical history significant for hypertension, hyperlipidemia, asthma recently placed on prednisone, GERD, and depression who presented to the ED with severe right flank pain and shortness of breath. 1. Acute severe sepsis, present on admission. Resolved. -Patient presented with tachycardia (HR 110), tachypnea (RR 28), febrile (T 101.5? F), WBC 8.6, lactate 9.0, procalcitonin 38.81 with end-organ dysfunction of acute kidney injury and hypotension (responsive to IV fluids) with source right-sided obstructive uropathy. -Early goal-directed therapy met including: Broad-spectrum IV antibiotics and IV fluid resuscitation. -Continued to trend lactic acid until under 2.0. 2. Acute right-sided obstructive uropathy with E. coli pyelonephritis and bacteremia, present on admission. Resolving. -Patient presented with progressive worsening right-sided flank pain, fever, chills, rigors, and shortness of breath. -CT abdomen and pelvis with contrast demonstrated obstructing right UPJ stone with mild to moderate right-sided hydronephrosis and perinephric fat stranding and non-obstructing stone in right kidney. No left-sided renal stone or hydronephrosis. -EKG demonstrated sinus rhythm with right bundle branch block and no previous comparison available. Continue to monitor closely on telemetry. Continue monitor electrolytes and replete as necessary given amount of IV fluid resuscitation. -Initial WBC 8.6 and procalcitonin 38.81. WBC and procalcitonin trend trended up and peaked at 31.7 and 51.22, respectively. WBC and procalcitonin now trending down and 24 and will 14.26, respectively. Continue to monitor WBC and procalcitonin daily. -Blood cultures x2 and urine culture grew pansensitive E coli. -Initial lactic acid highly elevated at 9.0 and trended down with treatment of acute infection and IV fluid resuscitation and finally normalized at 1.7. Due to persistent lactic acidosis and right flank pain ordered CT KUB which demonstrated resolution of hydronephrosis and patency of ureteral stent. -Received 4 L boluses of LR in ED. Continued IV fluid hydration until adequately hydrated then discontinued. Continue to diurese today with furosemide 40 mg IV x2. -Received vancomycin with dosing per pharmacist x1 and Zosyn 3.375 g IV x1 in ED. Received Zosyn 3.375 g IV every 6 hours then switched to meropenem 1 g every 12 hours pending blood and urine culture sensitivities due to persistent tachycardia and subsequent new onset atrial fibrillation with persistent right flank pain and possibility of MDR. Switched to ceftriaxone 2 g IV daily for pansensitive E coli. -Consulted urology, Dr. Rios, who performed cystoscopy and right ureteral stent placement. Plan for follow-up in 1-2 weeks with urology to plan removal of ureteral stent. 3. New onset atrial fibrillation, not present on admission. Resolved. -Secondary to underlying infection and possible mild fluid overload from IV fluid resuscitation. -Patient had persistent tachycardia that subsequently converted to atrial fibrillation yesterday 11/28/2019. -Received diltiazem 10 mg IV x1 and started on diltiazem gtt. Patient converted from atrial fibrillation to sinus rhythm at 0230 today 11/29/2019. Did not start oral rate control as the atrial fibrillation was likely driven by infection. If patient has recurrence will start oral rate control medication and consideration of anticoagulation. -Ordered echocardiogram, pending. -Continue to monitor heart rate closely on telemetry. 4. Acute metabolic encephalopathy, present on admission. Resolved. -Patient had waxing and waning mentation in the ED. Initial GCS 10. Patient's mentation improved with IV antibiotics and IV fluid hydration and encephalopathy had resolved by the time she arrived to the ICU. -Continue to keep patient awake, alert and stimulated throughout the day and allow for restful sleep at night with minimal interruptions. Continue to reorient frequently. Patient has mild intermittent confusion. 5. Acute kidney injury, present on admission. Resolved. -Initial creatinine 1.88. Unclear baseline creatinine. Creatinine trending down and nearly normalized at 0.97. -Avoid nephrotoxic agents. -Received 4 L boluses of LR in ED. Continue IV fluid hydration until adequately hydrated then discontinued. -Continue to monitor creatinine daily. 6. Mild transaminitis, acuity unclear but likely acute, present on admission. Resolving. -Likely secondary to biliary stasis of infection versus fatty liver disease as evident on CT. -Initial LFTs: Total bilirubin 1.4, AST 103, ALT 62 and alkaline phosphatase 188. LFTs improved with treatment of infection as above but then trended back up possibly due to fatty liver disease. Patient refuses and does not want to pursue abdominal ultrasound. -Continue to monitor LFTs periodically. 7. Acute hypotension in setting of chronic hypertension, present on admission. Resolved. -Secondary to sepsis and infection. -Patient presented hypotensive but was responsive to IV fluids and never went to septic shock requiring vasopressors. -Received 4 L boluses of LR in ED. Continued IV fluid hydration until adequately hydrated then discontinued. -Held home amlodipine due to hypotension. Restarted and continue amlodipine 5 mg daily. 8. Asthma with recent exacerbation, acute on chronic, present on admission. Stable. -Patient recently started on prednisone 10 mg daily for acute asthma exacerbation. Held glucocorticoids at this time given sepsis and infection. -ABG: PH 7.41, pCO2 17.6, PO2 72, HC03 11 SpO2 95% on room air. -Continue respiratory therapy evaluation and treatment. Continue albuterol nebulizers every 2 hours as needed for shortness of breath or wheezing. Contin ue Mucinex 1200 mg twice daily. Continue to diurese as likely contributing to cough. -Continue supplemental oxygen as necessary to maintain oxygen saturations 88- 92%. Patient currently off oxygen. 9. Constipation with fecal impaction, acute on chronic, present on admission. Resolved. -CT abdomen and pelvis with contrast demonstrated constipation and fecal impaction without abnormal bowel wall thickening, free fluid or free air. -Continue bowel regimen with MiraLax 17 g daily, Colace 100 mg twice daily and bisacodyl suppository as needed for constipation. 10. Hyperlipidemia, chronic, present on admission. Stable. -Continue home rosuvastatin 10 mg daily. 11. GERD, chronic, present on admission. Stable. -Continue pantoprazole 40 mg daily. 12. Depression, chronic, present on admission. Stable. -Continue duloxetine 60 mg daily. Code status: DNR/DNI. Patient designates son Zhou Myers as surrogate decision maker and DPOA VTE prophylaxis: SQ Heparin, SCDs Disposition: Patient will likely discharge home with home health in 1-2 days once infection has been treated adequately. Quality VTE Deep Vein Thrombosis/Pulmonary Embolism Present on Admission: No
[2019-11-30] MEDS: CEFTRIAXONE 2 GM/50 ML FROZ.PIGGY IV (10:16)
--- NOTE | 2019-11-30 10:42 | OT.IP.TRT ---
Current Diagnoses Sepsis, unspecified organism (11/27/19) Calculus of kidney (11/27/19) Urinary tract infection, site not specified (11/27/19) Severe sepsis with septic shock (11/27/19) Surgery Performed Operation Date: 11/27/19 16:15 Actual Procedures p Cystoscopy/ Placement Right Ureteral Stent(Right) - Bowen Rios MD Occupational Therapy Treatment Note M2 OT-IP Current Condition Start: 11/29/19 09:44 Freq: Status: Active Protocol: Document 11/29/19 08:52 [facility] (Rec: 11/29/19 10:16 [facility] [id number]) Occupational Therapy Current Condition Current Condition Evaluation Date 11/29/19 Treatment Diagnosis Sepsis, UTI, decreased cognition Diagnosis Onset Date 11/27/19 M3 OT- IP Subjective and Pain Start: 11/29/19 09:44 Freq: Status: Active Protocol: Document 11/30/19 12:45 [facility] (Rec: 11/30/19 13:10 [facility] [email or web address]) OT- Subjective Occupational Therapy Visit Type Type Progress Note Visit Start Time 10:13 Visit Stop Time 10:42 Total Visit Minutes 29 Notes Per nursing, pt had a shower this am and is feeling better. Occupational Therapy Visit Comments Patient Comments I had a hard night but I feel better today. OT Pain Assessment Pain When Pain Assessed At Rest Pain Present Pain Present Denied Pain M4 OT- IP ADL's Start: 11/29/19 09:44 Freq: Status: Active Protocol: Document 11/29/19 08:52 [facility] (Rec: 11/29/19 10:16 [facility] [id number]) OT VHS-Fwaj-Nlkeyka Comments OT Self-Feeding Comments Noted while pt brushing her teeth that she spit out particles of food. Therefore educated her on making sure to use her tongue to check if all the food is out of her mouth after meals and to be sure to alternate between water and food. OT ADL-Grooming General Evaluation Grooming Ability Standby Assistance Comments OT Grooming Comments Pt vc for look for items on the counter and cues to brush the right side of her hair. OT ADL-Oral Care General Eval Oral Care Ability Independent OT ADL-Dressing General Eval Lower Body Dressing Ability Moderate Assistance Comments OT Dressing Comments Pt needing assist to nikia her socks and able to cross her legs but struggles to doff her socks. OT ADL-Toileting General Evaluation Toileting Ability Maximum Assistance Areas Needing Assistance Perform Perineal Hygiene Comments OT Toileting Comments Pt unable to reach effectively and needing assist to help wipe when having pt try to wipe from the back. Pt getting her left arm tangled on the FWW initially. OT ADL-Bathing Comments OT Bathing Comments NOt at this time. M5 OT- IP IADL's Start: 11/29/19 09:44 Freq: Status: Active Protocol: Document 11/29/19 08:52 [facility] (Rec: 11/29/19 10:16 [facility] [email or web address]) OT-Instrumental Activities of Daily Living Home Safety Awareness Home Safety Comments Pt having troublewith her train of thought and with cues and able to grossly answer the questions. Pt knew to get a fire extinguisher or with cues to call 911. however pt not able to recall how to use the fire extinguisher. Medication Management Medication Management Comments At this time due to pt's confusion, would be best to have someone assist her for these needs. Money Management Money Management Comments At this time due to pt's confusion, would be best to have someone assist her for these needs. Meal Preparation Meal Preparation Comments At this time due to pt's confusion and decreased activity tolerance, would be best to have someone assist her for these needs. Customer Data Technician Customer Data Technician Comments At this time due to pt's confusion and decreased activit tolerance, would be best to have someone assist her for these needs. Driving Driving Concerns Identified Regarding Safety Driving Comments Recommend no driving at this time and pt confused and not problem solving well at this time due to her UTI and sepsis . M6 OT- IP Functional Cognition Start: 11/29/19 09:44 Freq: Status: Active Protocol: Document 11/30/19 12:45 [facility] (Rec: 11/30/19 13:10 [facility] [email or web address]) Cognitive Factors Limiting Selfcare Function Cognitive Ability Level of Alertness Alert Patient Orientation Name,Age,Birthday,Month,Date, Year,Day of Week,Place, Situation Attention Span Ability Capable of Focused Attention, Capable of Sustained Attention Ability to Follow Commands Able to Follow Multi-Step Commands Cognitive Tests SLUMS Pt participated in the SLUMS this AM and scored 23/30. Pt was able to name 13 animals in 1 minute instead of 15+, she remembered 3/5 objects named for short term memory testing, and she was unable to correctly number or bethany the clock. Pt was able to state all answers to the listening comprehension section. Cognitive Comments Cognitive Assessment Comments Pt appears more cognitively cleared on this date. OT- Vision and Hearing OT- Hearing Assessment OT- Hearing Assessment WFL OT- Vision Assessment Visual Acuity Glasses All The Time Vision Assessment Comments Pt was wearing glasses. M7 OT- IP Mobility and Balance Start: 11/29/19 09:44 Freq: Status: Active Protocol: Document 11/30/19 12:45 [facility] (Rec: 11/30/19 13:10 [facility] [email or web address]) OT- Bed Mobility Assessment Sit to Supine Sit to Supine Assist Contact Guard Assistance Scooting Scooting Up and Down in Bed Standby Assistance OT-Transfer Assessment Sit to and From Stand Sit to and from Stand Contact Guard Assistance Transfers Transfer Ability Contact Guard Assistance Technique Transfer Destination Bed,Chair,Toilet Transfer Technique Stand Step Pivot Devices Transfer Assistive Devices Gait Belt,Front Wheeled Walker Comments Mobility Comments Pt stood at sink for brushing teeth with set up and transfered to the toilet and performed toileting without physical assist. OT- Balance Assessment Sitting Balance and Reactions Static Sitting Balance Ability Normal Dynamic Sitting Balance Ability Good Standing Balance and Reactions Static Standing Balance Ability Fair Dynamic Standing Balance Ability Poor M8 OT- IP Objective Assessments Start: 11/29/19 09:44 Freq: Status: Active Protocol: Document 11/29/19 08:52 [facility] (Rec: 11/29/19 10:16 [facility] [email or web address]) OT Gross Range of Motion Upper Extremity Range of Motion Assessment Within Functional Limits OT Strength Upper Extremity Strength Assessment Within Functional Limits M9 OT- IP Assessment and Plan Start: 11/29/19 09:44 Freq: Status: Active Protocol: Document 11/30/19 12:45 [facility] (Rec: 11/30/19 13:10 [facility] [email or web address]) OT Summary Assessment and Plan Potential Rehabilitation Potential Good Analytic Complexity at Evaluation Low Summary OT Impairments Functional Cognition, Functional Mobility,Self- Feeding,Grooming,Dressing, Toileting,Bathing,Toilet Transfers,Shower Transfers, Activity Tolerance Progress Towards Goals Slow Progress due to Medical Issues,Slow Progress due to Activity Tolerance,Slow Progress due to Cognition Assessment Summary Pt progressing with therapy services on this date. Formal cog assessment shows mild neurocognitive disorder per the SLUMS. Pt will benefit from continued therapy services. Pt may be safe for discharge home with assist. Goals Self-Feeding Goal Independent Grooming Goal Independent Dressing Goal Independent Toileting Goal Independent Bathing Goal Independent Toilet Transfer Goal Independent Shower Transfer Goal Independent Patient/Caregiver Education Goal Caregiver Independent Assisting Patient Days to Meet Goals 15 Frequency of Treatment Frequency Of Treatment Once a Day Treatment Plan OT Treatment Plan ADL Training,Functional Cognition Training,Functional Mobility,Patient/Family Education,Discharge Planning Other Treatment Recommendations and Next Shower Treatment Focus Discharge Recommendations OT Discharge Recommendations SNF Rehab Other Discharge Recommendations Pt is davidley safe for discharge home with assist. Given cog assessment and current mobility, home alone is likley not a safe option. Home Equipment Needs FWW versus 4WW Transportation Needs at Discharge Private Vehicle
[2019-11-30] MEDS: AMLODIPINE 5 MG TABLET PO (11:30)
[2019-11-30] MEDS: POTASSIUM CHLORIDE 20 MEQ TAB 40 MEQ PO ×2 (11:31→16:25)
[2019-11-30] MEDS: guaiFENesin ER 600 MG TAB 1200 MG PO ×2 (11:31→21:10)
[2019-11-30] MEDS: DULOXETINE 30 MG CAPSULE 60 MG PO (11:32)
[2019-11-30] MEDS: MELOXICAM 7.5 MG TABLET 15 MG PO (11:41)
[2019-11-30] MEDS: PANTOPRAZOLE 40 MG TABLET PO (11:41)
[2019-11-30] MEDS: MAGNESIUM CHLORIDE 64 MG TABLET 128 MG PO (11:41)
[2019-11-30] MEDS: BISACODYL 10 MG SUPP PR (13:19)
--- NOTE | 2019-11-30 13:23 | CM.SWNOTE ---
BENZENE WASHER OPERATOR Note This BENZENE WASHER OPERATOR asked by Dr Padgett to meet w/patient this afternoon to review/clarify wishes re medical POC. Dr Padgett explains to this BENZENE WASHER OPERATOR that she has received calls from family members, dtr and son, ex-spouse is at bedside, asking why patient is receiving unnecessary medical interventions (?) meanwhile, patient, whom is A+O has been asked for consent on every intervention, has said yes. Met w/patient at bedside, asked if ex spouse ankur could step outside briefly so that this BENZENE WASHER OPERATOR could discuss POC with her alone (?) and patient refused, stating she wanted Ankur to remain at her bedside. Proceeded by explaining the concerns voiced by Dr Padgett and nursing staff; that family members, by phone and present here today, were questioning the treatment course that the providers had suggested and patient had agreed to ie stent placement, treating afib, and receiving bedside echo. Receiving these interventions did not make her DNR status null and void. Patient understood these concerns and admitted that she has gone over her advanced directives numerous times w/her children on several occasions and are now trying to advocate on her behalf. Patient discusses how difficult it is for her to stand up to anyone, especially medical staff and she fears, w/an inability to cope well w/stress, she has not stated her wishes correctly. In review of this hospital stay, patient admits to this BENZENE WASHER OPERATOR today, I don't think I wanted all of this. This BENZENE WASHER OPERATOR attempted to review the following: that for many who have DNR, it does not necessarily mean that they will choose not to treat a treatable infection but rather treat infection if they will survive and continue to live with quality of life. For others, they may opt not to treat any infection and allow infection to overwhelm they're body until they pass. Patient understood. Patient understands that the hospital staff were following her verbal directives because she is A+O and requesting treatment. In review, patient explains to this BENZENE WASHER OPERATOR she may have done things differently if it were to happen again. Patient admits she has memory issues and she would like a member of her family to be with her for all medical decisions from here on out and this BENZENE WASHER OPERATOR agreed this was a very good plan. In conclusion, patient and ex spouse Ankur request to speak w/ Dr Padgett again, together, and request that patient always have a family member with her at bedside or by phone when medical POC is being reviewed and decisions are needed. Patient's son/DPOA will be arriving this afternoon and ex spouse Ankur states I will recede after that so our son can assist Updated MARION Gomze and Dr Padgett w/summary of above. P: DC home w/family expected upon DC. Following closely to coordinate DCP RAIZA Padilla
[2019-11-30] MEDS: FUROSEMIDE 40 MG/4 ML VIAL IV (14:07)
--- NOTE | 2019-11-30 14:30 | PT-IP ANOTE ---
Attempted to see pt this PM, nursing still present and stated pt had just had suppository. Pt reported fatigue and SOB after mobilizing w/ nursing and requested to rest.
--- NOTE | 2019-11-30 14:35 | PC.NURSE ---
Assumed care of Pt @ 0700, reports mild KIM. Sitting up eating meal and ex into visit and get update on POC. Stated multiple times, she is to remain a DNR Reviewed code status, Pt has been DNR/DNI all of this admission. I just thought it should be clear there isn't any heroics. When asked about clarification, unclear, if heroics was the treatment of afib or stent placement. Updated Dr Padgett and CM. Will review case, moved to floor care with 209 bed placement. Report given to jared.
[2019-11-30] MEDS: INSULIN ASPART 100 UNIT/ML INSULN PEN SUBCUT (16:37)
[2019-11-30] MEDS: ROSUVASTATIN 10 MG TABLET PO (21:10)
[2019-11-30] MEDS: MELATONIN 3 MG TABLET 6 MG PO (21:11)
[2019-11-30] MEDS: DOCUSATE 100 MG CAPSULE PO (21:11)
[2019-12-01] VITALS (7 sets, daily range): BP systolic 121–154; BP diastolic 63–86; PULSE 68–79; RESP 16–20; TEMP 36.2–37.3; O2SAT 93–96
[2019-12-01] MEDS: ACETAMINOPHEN 325 MG TABLET 650 MG PO ×2 (02:45→16:52)
[2019-12-01 05:58] LABS: Red Cell Distribution Width 15.4 % (11.6-14.8); White Blood Cell Count 12.1 X10^3/uL (4.5-11.0)
[2019-12-01 06:01] LABS: Hematocrit 39.4 % (36-46); Mean Corpuscular Hemoglobin 27.7 PG (26-34); Mean Corpuscular Volume 83.7 fL (80-100); Platelet Count 82 X10^3/uL (150-400)
[2019-12-01 06:03] LABS: Add Manual Diff / Slide Review YES
[2019-12-01 06:08] LABS: Alanine Aminotransferase 43 IU/L (<35); Albumin 3.2 g/dL (3.5-5.0); Alkaline Phosphatase 270 U/L (38-126); Aspartate Aminotransferase 42 IU/L (14-36); BUN Creatinine Ratio 30.1 (6-22); Bilirubin Total 1.9 mg/dL (0.2-1.3); Blood Urea Nitrogen 25 mg/dL (7-17); Calcium 9.3 mg/dL (8.4-10.2); Carbon Dioxide 27 mmol/L (22-32); Chloride 104 mmol/L (98-107); Estimated Glomerular Filt Rate > 60.0 mL/min (>60); Globulin 3.1 g/dL (1.7-4.1); Glucose 139 mg/dL (80-110); HEMOLYSIS < 15 (0-50); Magnesium 1.7 mg/dL (1.6-2.3); Potassium 3.3 mmol/L (3.4-5.1); Sodium 138 mmol/L (137-145); Total Protein 6.3 g/dL (6.3-8.2)
[2019-12-01 06:19] LABS: Procalcitonin 7.29 ng/mL (<0.5)
[2019-12-01 06:23] LABS: Neutrophils Absolute Manual 9317 /uL (3000-5900); Total Cells Counted 100
[2019-12-01 06:25] LABS: Anisocytosis 1+
[2019-12-01] MEDS: CEFTRIAXONE 2 GM/50 ML FROZ.PIGGY IV (09:51)
[2019-12-01] MEDS: POTASSIUM CHLORIDE 20 MEQ TAB 40 MEQ PO ×2 (09:53→16:50)
[2019-12-01] MEDS: DOCUSATE 100 MG CAPSULE PO ×2 (09:54→21:18)
[2019-12-01] MEDS: guaiFENesin ER 600 MG TAB 1200 MG PO ×2 (09:54→21:18)
[2019-12-01] MEDS: AMLODIPINE 5 MG TABLET PO (09:54)
[2019-12-01] MEDS: MAGNESIUM CHLORIDE 64 MG TABLET 128 MG PO (09:55)
[2019-12-01] MEDS: PANTOPRAZOLE 40 MG TABLET PO (09:56)
[2019-12-01] MEDS: MELOXICAM 7.5 MG TABLET 15 MG PO (09:56)
[2019-12-01] MEDS: polyethylene glycoL 3350 17 GM POWD.PACK PO (09:56)
--- NOTE | 2019-12-01 10:22 | PC.NURSE ---
Day shift: Pt's IV infiltrated during the IV antibiotic this AM. OK w/ Dr Guzman to not have IV access and Pt switched to PO antibiotics and tele was d/c'd.
[2019-12-01] MEDS: CIPROFLOXACIN 250 MG TABLET PO ×2 (10:26→21:18)
--- NOTE | 2019-12-01 11:24 | CM.DPC ---
Addendum entered by Davina Blanchard R.N. 12/01/19 13:00: Allny/RN spoke with Dr. Guzman about needing a new Covid-19 test done on patient for possible admission to SNF tomorrow. Dr. Guzman stated he will order a new one to be done today for D/C tomorrow. ALLYN/RN will continue to get clinicals faxed to patients top three choices for SNF that CM was given by patients son. Davina Blanchard RN Addendum entered by Davina Blanchard R.N. 12/01/19 12:56: CM Spoke with patients son and gave three choices for SNF options would be [facility], [facility] in [place] and [facility] as a last resort. Allyn/RN sent Clinicals for [facility] to review and will work with patient and patients son tomorrow morning at 8:15 to finalize a D/C plan for D/C tomorrow, Allyn/RN spoke with hussain at [facility] and they will review it for possible admission tomorrow they have beds. Davina Blanchard Addendum entered by Davina Blanchard R.N. 12/01/19 12:22: attempted to meet with patient and son at the bedside patients was sleeping and son was not in the room. ALLYN/RN will be going home early today due to census and will follow up tomorrow morning with patient and family to determine D/C plan. Davina Blanchard RN Original Note: DCP continued: EMR Reviewed: Allyn/RN met with patients venu [place] and discussed D/C plans. ALLYN/RN explained that patient has been very clear about her desire to D/C home with - [facility] was contacted and clinicals were faxed for their review. LVEARRn explained at length the different services that can be offered at a SNF vs HH and that with his mothers current lack of mobility PT and OT have both recommended SNF at D/C. Patients son Zhou is planning on being here a week to help with his mothers recovery but wont be her after that. ALLYN/RN will provide patient and family with Resource information on private pay Care giving services if they decide they want to go home with HH. ALLYN/Rn will meet with family and patient again later today after PT and determine a set D/C plan for either today or tomorrow according to Dr. Guzman. Davina Blanchard RN
--- NOTE | 2019-12-01 11:38 | PT.IPTN ---
Current Diagnoses Sepsis, unspecified organism (11/27/19) Calculus of kidney (11/27/19) Urinary tract infection, site not specified (11/27/19) Severe sepsis with septic shock (11/27/19) Surgery Performed Operation Date: 11/27/19 16:15 Actual Procedures p Cystoscopy/ Placement Right Ureteral Stent(Right) - Bowen Rios MD Physical Therapy Treatment Note M2 PT-IP Current Condition Start: 11/28/19 13:29 Freq: NEEDED Status: Active Protocol: Document 11/28/19 11:33 AB (Rec: 11/28/19 13:44 AB [id number]) Physical Therapy Current Condition Current Condition Evaluation Date 11/28/19 Treatment Diagnosis sepsis; UTI; difficulty in walking Onset Date 11/27/19 M3 PT-IP Subjective Start: 11/28/19 13:29 Freq: NEEDED Status: Active Protocol: Document 12/01/19 10:01 [facility] (Rec: 12/01/19 11:38 [facility] [id number]) Subjective Physical Therapy Visit Type Type Treatment Note Visit Start Time 10:01 Visit Stop Time 10:29 Total Visit Minutes 28 Number of ELECTROMECHANICAL EQUIPMENT ASSEMBLER Visits 1 Physical Therapy Visit Comments Patient Comments pt is agreeable to do PT M4 PT-IP Mobility and Gait Start: 11/28/19 13:29 Freq: NEEDED Status: Active Protocol: Document 12/01/19 10:01 [facility] (Rec: 12/01/19 11:38 [facility] [id number]) PT-Bed Mobility Assessment Supine to Sit Supine to Sit Standby Assistance,Head of Bed Elevated Scooting Scooting to Edge of Bed Standby Assistance PT-Transfer Assessment Sit to and From Stand Sit to and from Stand Standby Assistance,Contact Guard Assistance,Use of Upper Extremities Equipment Transfer Assistive Device Gait Belt,Front Wheeled Walker Orthotic/Prosthetic Devices or Brace: No Transfers Transfer Technique pt ambulated using FWW Transfer Ability Level of Assist Standby Assistance,Contact Guard Assistance,Use of Upper Extremities Gait Assessment Gait Gait Assistance Required: Standby Assistance,Contact Guard Assist Distance (Feet) 250 Able to Maintain Weight Bearing Status Yes During Gait Assistive Devices Assistive Device Gait Belt,Front Wheeled Walker Orthotic/Prosthetic Devices or Brace: No Gait Deviations General Gait Pattern Decreased Stride Length, Decreased Feet Clearance Factors Limiting Gait Function Factors Limiting Gait Function Decreased Activity Tolerance, Decreased Strength,Poor Balance,Poor Safety Awareness Comments Gait Comments Pt requiring SBA-CAG for gait in hallway. Also needing cues to slow down. Ambulated to stairs then around N loop. Pt tends to look around rather than looking forward while walking. Stair Climbing Assessment Evaluation Level of Assist On Stairs Standby Assistance,Contact Guard Assistance Devices Stair Climbing Assistive Devices Left Railing,Right Railing Technique/Endurance Stair Climbing Direction Ascend and Descend Stair Climbing Technique Step Over Step,Step to Step Number of Steps Climbed 3 Stair Climbing Set # Repetitions (reps) 4 Comments Stair Climbing Comments Pt used step over pattern on first trial and had slight loss of balance on lowest stair during first trial. Cautioned to slow down and use step-to pattern on descent. Tends to go quickly without paying much attention to where her feet are on the step M5 PT-IP Objective Assessments Start: 11/28/19 13:29 Freq: NEEDED Status: Active Protocol: Document 11/28/19 11:33 [facility] (Rec: 11/28/19 13:44 AB [id number]) Orientation Orientation/Cognition Level of Alertness Alert Orientation Name Safety Awareness Decreased Safety Awareness Gross Range of Motion Lower Extremity ROM Assessment Within Functional Limits Strength Lower Extremity Strength Assessment Bilaterally Impaired Hip 3+/5 Knee 4-/5 Sensation Assessment Sensation Gross Sensation WNL Muscle Tone Muscle Tone WNL Yes M6 PT-IP Treatment Start: 11/28/19 13:29 Freq: NEEDED Status: Active Protocol: Document 12/01/19 10:01 [facility] (Rec: 12/01/19 11:38 [id number]) Physical Therapy Treatment Education Education Provided Safety M7 PT-IP Assessment and Plan Start: 11/28/19 13:29 Freq: NEEDED Status: Active Protocol: Document 12/01/19 10:01 [facility] (Rec: 12/01/19 11:38 [id number]) PT Summary Assessment and Plan Potential Rehabilitation Potential Good Summary Impairments ROM,Strength,Balance, Coordination,Cognition,Bed Mobility,Transfers,Gait, Activity Tolerance Progress Towards Goals Slow Progress due to Activity Tolerance Assessment Summary Pt is progressing well with ambulation but appears to be slightly confused and impulsive. Required several cues to slow down and pay closer attention during stair training and ambulation. Her son was in the room but didn not participate in gait or stair training. Pt states her neighbors check on her multiple times during the day but then stated she would not have any help because they all have dogs. Unknown how long son will be in town to assist pt. Physically she is able to walk and go up and donw stairs but is impulsive and rushes through tasks. Will need further assessment to determine whether or not she is safe to D/C home independently. Trial ambulating without FWW when appropriate. Goals Bed Mobility Goal Standby Assistance Transfer Goal Standby Assistance,Front Wheeled Walker Gait Goal Standby Assistance,Front Wheel Walker Gait Distance 150 Other Goals up/down 18 steps L rail ascending SBA Days to Meet Goals 10 Frequency of Treatment Frequency Of Treatment Once a Day Treatment Plan Physical Therapy Treatment Plan Bed Mobility Training,Transfer Training,Gait Training, Therapeutic Exercise,Balance Retraining,Discharge Planning, Neuromuscular Re-ed Other Recommendations and Next Treatment ambulation without FWW when Focus safe Recommendations To Nursing Amount of Assist Needed 1 Person Assist Discharge Recommendations PT Discharge Recommendations Home with Assistance,SNF Rehab Equipment Needed for Home Before FWW if pt goes home Discharge Transportation Needs at Discharge Wheelchair/Cabulance
--- NOTE | 2019-12-01 12:46 | P.PN_ITS ---
Subjective Subjective Date Patient Seen: 12/01/19 Time Patient Seen: 12:47 Interval history: Araceli Myers is a 74-year-old female with a past medical history significant for hypertension, hyperlipidemia, asthma recently placed on prednisone, GERD, and depression who presented to the ED with severe right flank pain and shortness of breath. She was admitted for severe sepsis and found to have E coli bacteremia secondary to pyelonephritis and obstructive stone. She h ad a stent placed and is doing well. Her infectious markers have almost improved to normal today. She is still quite weak and recovering. She continues to work with physical therapy. Did discuss with family and currently the plan is for discharge home with home health likely tomorrow. She denies complaints today of abdominal pain, chest pain, nausea, vomiting. She is tolerating a diet. Nursing staff reports bowel movements, however the patient still complains of constipation. Exam Vital Signs (past 8 hours): - 12/01/19 07:59 Temperature 97.2 F L Pulse Rate 70 Respiratory Rate 20 Blood Pressure 136/71 Pulse Oximetry 93 Oxygen Delivery Method Room Air Oxygen Flow Rate 0 Narrative Exam Narrative: General: Elderly female lying in bed and in no acute distress, well-developed, well-nourished, appropriately interactive. HEENT: Normocephalic, atraumatic. External ears without defect. Pupils equal, round, and reactive to light. Anicteric sclerae, moist conjunctivae, and no lid lag. Oropharynx free of erythema and cobble stoning with moist mucosa. Neck: Supple with full range of motion. No jugular venous distension. No lymphadenopathy or thyromegaly. Cardiovascular: Regular rate and rhythm without murmurs, rubs, or gallops appreciated. Pulmonary: Clear to auscultation bilaterally with end-expiratory wheeze and occasional upper airway rhonchi. No crackles. Mild tachypnea with mild use of accessory muscles which is chronic. Abdomen: Soft, obese, bowel sounds present, right flank pain resolved and nontender, nondistended. Extremities: No clubbing or cyanosis. Mild peripheral edema, improving. Skin: Normal temperature, turgor, and texture; no rash, ulcers, or subcutaneous nodules appreciated. Neurological: Cranial nerves grossly intact. Psychiatric: Normal mood an affect. Alert oriented to person, place and time. Mild cognitive impairment with short-term memory recall deficit. Objective Labs Result Diagrams: 12/01/19 05:26 12/01/19 05:26 Labs: Laboratory Results - last 24 hr 12/01/19 12/01/19 12/01/19 05:26 05:26 05:26 WBC 12.1 H RBC 4.70 Hgb 13.0 Hct 39.4 MCV 83.7 MCH 27.7 MCHC 33.0 RDW 15.4 H Plt Count 82 L Neut % (Auto) Not Reportable Lymph % (Auto) Not Reportable [place] % (Auto) Not Reportable Eos % (Auto) Not Reportable Baso % (Auto) Not Reportable Lymph # (Auto) Not Reportable [place] # (Auto) Not Reportable Baso # (Auto) Not Reportable Total Counted 100 Seg Neutrophils % 65.0 Band Neutrophils % 12.0 H Lymphocytes % (Manual) 14.0 L D Monocytes % (Manual) 6.0 Eosinophils % (Manual) 3.0 Neutrophils # (Manual) 9317 H RBC Morphology See below Anisocytosis 1+ H Sodium 138 Potassium 3.3 L Chloride 104 Carbon Dioxide 27 BUN 25 H Creatinine 0.83 Estimated GFR > 60.0 BUN/Creatinine Ratio 30.1 H Glucose 139 H Calcium 9.3 Magnesium 1.7 Total Bilirubin 1.9 H AST 42 H ALT 43 H Alkaline Phosphatase 270 H Total Protein 6.3 Albumin 3.2 L Globulin 3.1 Albumin/Globulin Ratio 1.0 Procalcitonin 7.29 H Assessment & Plan Assessment & Plan narrative: Araceli Myers is a 74-year-old female with a past medical history significant for hypertension, hyperlipidemia, asthma recently placed on prednisone, GERD, and depression who presented to the ED with severe right flank pain and shortness of breath. She was admitted for acute sepsis secondary to E. coli bacteremia secondary to acute obstructive nephrolithiasis with E. Coli UTI. 1. Acute severe sepsis, present on admission. Resolved. -Patient presented with tachycardia (HR 110), tachypnea (RR 28), febrile (T 101.5? F), WBC 8.6, lactate 9.0, procalcitonin 38.81 with end-organ dysfunction of acute kidney injury and hypotension (responsive to IV fluids) with source right-sided obstructive uropathy. -Early goal-directed therapy met including: Broad-spectrum IV antibiotics and IV fluid resuscitation. -Continued to trend lactic acid until under 2.0. 2. Acute right-sided obstructive uropathy with E. coli pyelonephritis and bacteremia, present on admission. Resolving. -Patient presented with progressive worsening right-sided flank pain, fever, chills, rigors, and shortness of breath. -CT abdomen and pelvis with contrast demonstrated obstructing right UPJ stone with mild to moderate right-sided hydronephrosis and perinephric fat stranding and non-obstructing stone in right kidney. No left-sided renal stone or hydronephrosis. -EKG demonstrated sinus rhythm with right bundle branch block and no previous comparison available. Patient developed afib with RVR -Initial WBC 8.6 and procalcitonin 38.81. WBC and procalcitonin trend trended up and peaked at 31.7 and 51.22, respectively. WBC and procalcitonin now trending down and 24 and will 14.26, respectively. Continue to monitor WBC and procalcitonin daily. -Blood cultures x2 and urine culture grew pansensitive E coli. -Initial lactic acid highly elevated at 9.0 and trended down with treatment of acute infection and IV fluid resuscitation and finally normalized at 1.7. Due to persistent lactic acidosis and right flank pain ordered CT KUB which demo nstrated resolution of hydronephrosis and patency of ureteral stent. -Received 4 L boluses of LR in ED. Continued IV fluid hydration until adequately hydrated then discontinued. Continue to diurese today with furosemide 40 mg IV x2. -Received vancomycin with dosing per pharmacist x1 and Zosyn 3.375 g IV x1 in ED. Received Zosyn 3.375 g IV every 6 hours then switched to meropenem 1 g every 12 hours pending blood and urine culture sensitivities due to persistent tachycardia and subsequent new onset atrial fibrillation with persistent right flank pain and possibility of MDR. Switched to ceftriaxone 2 g IV daily for pansensitive E coli. -Consulted urology, Dr. Rios, who performed cystoscopy and right ureteral stent placement. Plan for follow-up in 1-2 weeks with urology to plan removal of ureteral stent. 3. atrial fibrillation with RVR, not present on admission. Resolved. -Secondary to underlying infection and possible mild fluid overload from IV fluid resuscitation. -Patient had persistent tachycardia that subsequently converted to atrial fibrillation yesterday 11/28/2019. -Received diltiazem 10 mg IV x1 and started on diltiazem gtt. Patient converted from atrial fibrillation to sinus rhythm at 0230 today 11/29/2019. Did not start oral rate control as the atrial fibrillation was likely driven by infection. If patient has recurrence will start oral rate control medication and consideration of anticoagulation. -Echocardiogram unremarkable. -No recurrence on telemetry since event. Will discontinue at this time and will monitor symptomatically. 4. Acute metabolic encephalopathy, present on admission. Resolved. -Patient had waxing and waning mentation in the ED. Initial GCS 10. Patient's mentation improved with IV antibiotics and IV fluid hydration and encephalopathy had resolved by the time she arrived to the ICU. -Continue to keep patient awake, alert and stimulated throughout the day and allow for restful sleep at night with minimal interruptions. Continue to reorient frequently. Patient has mild intermittent confusion. 5. Acute kidney injury, present on admission. Resolved. -Initial creatinine 1.88. Unclear baseline creatinine. Creatinine trending down and nearly normalized at 0.83 -Avoid nephrotoxic agents. -Received 4 L boluses of LR in ED. Continued IV fluid hydration until adequately hydrated then discontinued. -Continue to monitor creatinine daily. 6. Mild transaminitis, acuity unclear but likely acute, present on admission. Resolving. -Likely secondary to biliary stasis of infection versus fatty liver disease as evident on CT. -Initial LFTs: Total bilirubin 1.4, AST 103, ALT 62 and alkaline phosphatase 188. LFTs improved with treatment of infection as above but then trended back up possibly due to fatty liver disease. Patient refuses and does not want to pursue abdominal ultrasound. -Continue to monitor LFTs periodically. 7. Acute hypotension in setting of chronic hypertension, present on admission. Resolved. -Secondary to sepsis and infection. -Patient presented hypotensive but was responsive to IV fluids and never went to septic shock requiring vasopressors. -Received 4 L boluses of LR in ED. Continued IV fluid hydration until adequately hydrated then discontinued. -Held home amlodipine due to hypotension. Restarted and continue amlodipine 5 mg daily. 8. Asthma with recent exacerbation, acute on chronic, present on admission. Stable. -Patient recently started on prednisone 10 mg daily for acute asthma exacerbation. Held glucocorticoids at this time given sepsis and infection. -ABG: PH 7.41, pCO2 17.6, PO2 72, HC03 11 SpO2 95% on room air. -Continue respiratory therapy evaluation and treatment. Continue albuterol nebulizers every 2 hours as needed for shortness of breath or wheezing. Cont inue Mucinex 1200 mg twice daily. Continue to diurese as likely contributing to cough. -Continue supplemental oxygen as necessary to maintain oxygen saturations 88- 92%. Patient currently off oxygen. 9. Constipation with fecal impaction, acute on chronic, present on admission. Resolved. -CT abdomen and pelvis with contrast demonstrated constipation and fecal impaction without abnormal bowel wall thickening, free fluid or free air. -Continue bowel regimen with MiraLax 17 g daily, Colace 100 mg twice daily and bisacodyl suppository as needed for constipation. 10. Hyperlipidemia, chronic, present on admission. Stable. -Continue home rosuvastatin 10 mg daily. 11. GERD, chronic, present on admission. Stable. -Continue pantoprazole 40 mg daily. 12. Depression, chronic, present on admission. Stable. -Continue duloxetine 60 mg daily. Code status: DNR/DNI. Patient designates venu Myers as surrogate decision maker and DPOA VTE prophylaxis: SQ Heparin, SCDs Disposition: Patient will likely discharge home with home health in 1-2 days once infection has been treated adequately and her strength is improved. Quality VTE Deep Vein Thrombosis/Pulmonary Embolism Present on Admission: No
[2019-12-01 15:27] LABS: COVID19 -Nasal RAPID Negative (Negative)
[2019-12-01] MEDS: MELATONIN 3 MG TABLET 6 MG PO (21:19)
[2019-12-01] MEDS: ROSUVASTATIN 10 MG TABLET PO (21:19)
[2019-12-02] VITALS: BP 120/72; PULSE 65; RESP 16; TEMP 36.7; O2SAT 99
[2019-12-02 04:36] VITALS: BP 157/79; PULSE 84; RESP 16; TEMP 37.6; O2SAT 94
[2019-12-02] MEDS: ACETAMINOPHEN 325 MG TABLET 650 MG PO (04:37)
[2019-12-02 06:02] LABS: Add Manual Diff / Slide Review NO; Basophils Absolute Auto 0 /uL (0-100); Basophils Percent Auto 0.5 % (0-2); Eosinophils Absolute Auto 200 /uL (0-450); Eosinophils Percent Auto 1.5 % (2-4); Hematocrit 38.6 % (36-46); Hemoglobin 12.9 g/dL (12.0-16.0); Lymphocytes Absolute Auto 1300 /uL (1100-4500); Lymphocytes Percent Auto 13.2 % (25-40); Mean Corpuscular HGB Conc 33.4 % (30-36); Mean Corpuscular Volume 84.1 fL (80-100); Monocytes Absolute Auto 500 /uL (0-900); Monocytes Percent Auto 5.4 % (3-14); Neutrophils Absolute Auto 7900 /uL (1500-7000); Neutrophils Percent Auto 79.4 % (50-75); Platelet Count 103 X10^3/uL (150-400); Red Blood Cell Count 4.59 X10^6/uL (4.0-5.2); Red Cell Distribution Width 15.1 % (11.6-14.8)
[2019-12-02 06:15] LABS: BUN Creatinine Ratio 30.8 (6-22); Blood Urea Nitrogen 24 mg/dL (7-17); Calcium 9.1 mg/dL (8.4-10.2); Carbon Dioxide 25 mmol/L (22-32); Chloride 105 mmol/L (98-107); Estimated Glomerular Filt Rate > 60.0 mL/min (>60); Glucose 173 mg/dL (80-110); HEMOLYSIS < 15 (0-50); Potassium 4.1 mmol/L (3.4-5.1); Sodium 135 mmol/L (137-145)
[2019-12-02 08:05] VITALS: BP 136/82; PULSE 75; RESP 19; TEMP 36.5; O2SAT 95
[2019-12-02] MEDS: DOCUSATE 100 MG CAPSULE PO (08:34)
[2019-12-02] MEDS: POTASSIUM CHLORIDE 20 MEQ TAB 40 MEQ PO (08:34)
[2019-12-02] MEDS: polyethylene glycoL 3350 17 GM POWD.PACK PO (08:34)
[2019-12-02] MEDS: DULOXETINE 30 MG CAPSULE 60 MG PO (08:34)
[2019-12-02] MEDS: guaiFENesin ER 600 MG TAB 1200 MG PO (08:34)
[2019-12-02] MEDS: CIPROFLOXACIN 250 MG TABLET PO (08:34)
[2019-12-02] MEDS: PANTOPRAZOLE 40 MG TABLET PO (08:34)
[2019-12-02] MEDS: MELOXICAM 7.5 MG TABLET 15 MG PO (08:35)
[2019-12-02] MEDS: AMLODIPINE 5 MG TABLET PO (08:35)
[2019-12-02] MEDS: MAGNESIUM CHLORIDE 64 MG TABLET 128 MG PO (08:35)
--- NOTE | 2019-12-02 09:13 | CM.DPC ---
Addendum entered by Davina Blanchard R.N. 12/02/19 10:27: ALLYN/Rn spoke with Arthur with [facility] and the time for transport has changed to 2:30pm. Patient, family, nursing and CLINICAL SERVICES PROFESSIONAL notified. Davina Blanchard RN Original Note: DCP Continued: EMR reviewed: Cm/RN met with family and patient at the bedside to disscuss d/C plan. patient agreed to go to SNF and family will assist with this process. CM/RN called [facility] and spoke with arthur in admissions. She agreed to accept patient today for admission at 1pm. CM/RN notified patient and Dr. Guzman of D/C plan. Patient stated understanding and agreed with D/c. PASRR completed. Davina Blanchard RN
--- NOTE | 2019-12-02 09:31 | P.DS_ITS ---
History of Present Illness History of Present Illness Date Patient Seen: 12/02/19 Time Patient Seen: 09:31 Chief complaint: Shortness of breath Narrative: As per Dr. Padgett, Araceli Myers is a 74-year-old female with a past medical history significant for hypertension, hyperlipidemia, asthma recently placed on prednisone, GERD, and depression who presented to the ED with severe right flank pain and shortness of breath. The patient reports that she has had right flank pain last several days and thought it was her back. She reports that this pain has progressively worsened and was quite severe today. She also reports she began having fevers, chills, and rigors yesterday evening around 2100 that kept her up throughout the night and she was barely able to sleep. She also endorses urinary urgency over the last 1 week. She was recently started on prednisone on 11/23/19 for asthma exacerbation. She has no other complaints and denies headache, chest pain, abdominal pain, nausea, vomiting, dysuria, or diarrhea. She has decreased level of alertness but is arousable and responsive. In the ED, the patient was found to be septic and on the verge of septic shock. She had a lactic acidosis of 9.0 with a normal WBC of 8.6 and a procalcitonin of 38.81. CT abdomen and pelvis with contrast demonstrated right obstructive uropathy. The patient has a POLST which indicates she is DNR/DNI and comfort measures only. The patient's family opted to honor these wishes and make her palliative care only, however, the patient became more awake and alert and able to indicate that she would want a surgical intervention if necessary to save her life and she is agreeable to IV fluids, IV antibiotics and vasopressors. The patient is firm on her code status of DNR/DNI. PCP is Alejandra Palencia in [place] Discharge Providers Provider Date of admission: 11/27/19 15:05 Discharge Date: 12/02/19 Consults: 11/27/19 08:53 Consult to Respiratory Therapy Evaluate & Treat Comment: Physician Instructions: Evaluate and treat 11/28/19 07:18 Consult to Occupational Therapy Evaluate & Treat Comment: Physician Instructions: Evaluate and treat Consult to Physical Therapy Evaluate & Treat Comment: Physician Instructions: Evaluate and Treat Discharge provider: Humberto Guzman DO Summary Hospital Course Discharge Diagnosis: Please see hospital course by problem list noted below. Hospital Course: Araceli Myers is a 74-year-old female with a past medical history significant for hypertension, hyperlipidemia, asthma recently placed on prednisone, GERD, and depression who presented to the ED with severe right flank pain and shortness of breath. She was admitted for acute sepsis secondary to E. coli bacteremia secondary to acute obstructive nephrolithiasis with E. Coli UTI. She improved with ureteral stent placement by Urology and continued antib iotics. Cultures grew a pansensitive E coli and patient will be discharged on oral antibiotics to complete a total 2 week course as per urology recommendations. She needs to follow-up with urology as an outpatient to plan removal of her stent. Patient and family ultimately decided after physical therapy evaluation for discharge to halfway facility for continued rehabilitation after admission for sepsis. 1. Acute severe sepsis, present on admission. Resolved. -Patient presented with tachycardia (HR 110), tachypnea (RR 28), febrile (T 101.5? F), WBC 8.6, lactate 9.0, procalcitonin 38.81 with end-organ dysfunction of acute kidney injury and hypotension (responsive to IV fluids) with source right-sided obstructive uropathy. -Early goal-directed therapy met including: Broad-spectrum IV antibiotics and IV fluid resuscitation. -Continued to trend lactic acid until under 2.0. 2. Acute right-sided obstructive uropathy with E. coli pyelonephritis and bacteremia, present on admission. Resolving. -Patient presented with progressive worsening right-sided flank pain, fever, chills, rigors, and shortness of breath. -CT abdomen and pelvis with contrast demonstrated obstructing right UPJ stone with mild to moderate right-sided hydronephrosis and perinephric fat stranding and non-obstructing stone in right kidney. No left-sided renal stone or hydronephrosis. -EKG demonstrated sinus rhythm with right bundle branch block and no previous comparison available. Patient developed afib with RVR as noted below. -Initial WBC 8.6 and procalcitonin 38.81. WBC and procalcitonin trend trended up and peaked at 31.7 and 51.22, respectively. WBC and procalcitonin ultimately trended down with leukocytosis improving to normal at 10.0 on the day of discharge and procalcitonin continuing to decline to 4.5 on the day of discharge. Procalcitonin continued to halve daily after interventions. -Blood cultures x2 and urine culture grew pansensitive E coli. -Initial lactic acid highly elevated at 9.0 and trended down with treatment of acute infection and IV fluid resuscitation and finally normalized at 1.7. Due to persistent lactic acidosis and right flank pain ordered CT KUB which dem onstrated resolution of hydronephrosis and patency of ureteral stent. -Received 4 L boluses of LR in ED. Continued IV fluid hydration until adequately hydrated then discontinued. Continue to diurese today with furosemide 40 mg IV x2. -Received vancomycin with dosing per pharmacist x1 and Zosyn 3.375 g IV x1 in ED. Received Zosyn 3.375 g IV every 6 hours then switched to meropenem 1 g every 12 hours pending blood and urine culture sensitivities due to persistent tachycardia and subsequent new onset atrial fibrillation with persistent right flank pain and possibility of MDR. Switched to ceftriaxone 2 g IV daily for pansensitive E coli. Ultimately changed to ciprofloxacin 250 mg BID at the recommendation of urology, to complete 2 week total course of antibiotics. -Consulted urology, Dr. Rios, who performed cystoscopy and right ureteral stent placement. Plan for follow-up in 1-2 weeks with urology to plan removal of ureteral stent. 3. atrial fibrillation with RVR, not present on admission. Resolved. -Secondary to underlying infection and possible mild fluid overload from IV f luid resuscitation. -Patient had persistent tachycardia that subsequently converted to atrial fibril lation yesterday 11/28/2019. -Received diltiazem 10 mg IV x1 and started on diltiazem gtt. Patient converted from atrial fibrillation to sinus rhythm at 0230 today 11/29/2019. Did not start oral rate control as the atrial fibrillation was likely driven by infection. -Echocardiogram unremarkable. -No recurrence was noted on telemetry since event. 4. Acute metabolic encephalopathy, present on admission. Resolved. -Patient had waxing and waning mentation in the ED. Initial GCS 10. Patient's mentation improved with IV antibiotics and IV fluid hydration and encephalopathy had resolved by the time she arrived to the ICU. -Continue to keep patient awake, alert and stimulated throughout the day and allow for restful sleep at night with minimal interruptions. Continue to reorient frequently. Patient has mild intermittent confusion. SLUMS with mild cognitive impairment with score of 23/30. 5. Acute kidney injury, present on admission. Resolved. -Initial creatinine 1.88. Unclear baseline creatinine. Creatinine treneded down and ultimately normalized at 0.78 -Avoid nephrotoxic agents. -Received 4 L boluses of LR in ED. Continued IV fluid hydration until adequately hydrated then discontinued. -Continue to monitor creatinine daily. 6. Mild transaminitis, acuity unclear but likely acute, present on admission. Resolving. -Likely secondary to biliary stasis of infection versus fatty liver disease as evident on CT. -Initial LFTs: Total bilirubin 1.4, AST 103, ALT 62 and alkaline phosphatase 188. LFTs improved with treatment of infection as above but then trended back up possibly due to fatty liver disease. Patient refused and did not want to pursue abdominal ultrasound. 7. Acute hypotension in setting of chronic hypertension, present on admission. Resolved. -Secondary to sepsis and infection. -Patient presented hypotensive but was responsive to IV fluids and never went to septic shock requiring vasopressors. -Received 4 L boluses of LR in ED. Continued IV fluid hydration until adequately hydrated then discontinued. -Held home amlodipine due to hypotension initially. Restarted and continue amlodipine 5 mg daily. 8. Asthma with recent exacerbation, acute on chronic, present on admission. Stable. -Patient recently started on prednisone 10 mg daily for acute asthma exacerbation. Held glucocorticoids at this time given sepsis and infection. -ABG: PH 7.41, pCO2 17.6, PO2 72, HC03 11 SpO2 95% on room air. -Continue respiratory therapy evaluation and treatment. Continue albuterol nebulizers every 2 hours as needed for shortness of breath or wheezing. Co ntinue Mucinex 1200 mg twice daily. Continue to diurese as likely contributing to cough. -Continue supplemental oxygen as necessary to maintain oxygen saturations 88- 92%. Patient currently off oxygen. 9. Constipation with fecal impaction, acute on chronic, present on admission. Resolved. -CT abdomen and pelvis with contrast demonstrated constipation and fecal impaction without abnormal bowel wall thickening, free fluid or free air. -Continue bowel regimen with MiraLax 17 g daily, Colace 100 mg twice daily and bisacodyl suppository as needed for constipation. 10. Hyperlipidemia, chronic, present on admission. Stable. -Continue home rosuvastatin 10 mg daily. 11. GERD, chronic, present on admission. Stable. -Continue pantoprazole 40 mg daily. 12. Depression, chronic, present on admission. Stable. -Continue duloxetine 60 mg daily. Dispo: discharged to SNF. COVID 19 testing: negative. Time Spent with Patient Time spent: Greater than 30 minutes Exam Vital Signs (past 8 hours): - 12/02/19 04:36 12/02/19 08:05 Temperature 99.7 F H 97.7 F Pulse Rate 84 75 Respiratory Rate 16 19 Blood Pressure 157/79 H 136/82 Pulse Oximetry 94 95 Oxygen Delivery Method Room Air Oxygen Flow Rate 0 Narrative Exam Narrative: General: Elderly female lying in bed and in no acute distress, well-developed, well-nourished, appropriately interactive. HEENT: Normocephalic, atraumatic. External ears without defect. Pupils equal, round, and reactive to light. Anicteric sclerae, moist conjunctivae, and no lid lag. Oropharynx free of erythema and cobble stoning with moist mucosa. Neck: Supple with full range of motion. No jugular venous distension. No lym phadenopathy or thyromegaly. Cardiovascular: Regular rate and rhythm without murmurs, rubs, or gallops appreciated. Pulmonary: Clear to auscultation bilaterally with end-expiratory wheeze and occasional upper airway rhonchi. No crackles. Mild tachypnea with mild use of accessory muscles which is chronic. Abdomen: Soft, obese, bowel sounds present, right flank pain resolved and nontender, nondistended. Extremities: No clubbing or cyanosis. Mild peripheral edema, improving. Skin: Normal temperature, turgor, and texture; no rash, ulcers, or subcutaneous nodules appreciated. Neurological: Cranial nerves grossly intact. Psychiatric: Normal mood an affect. Alert oriented to person, place and time. Mild cognitive impairment with short-term memory recall deficit. Objective Labs Result Diagrams: 12/02/19 05:21 12/02/19 05:21 Labs: Laboratory Results - last 24 hr 12/01/19 12/02/19 12/02/19 13:50 05:21 05:21 WBC 10.0 RBC 4.59 Hgb 12.9 Hct 38.6 MCV 84.1 MCH 28.0 MCHC 33.4 RDW 15.1 H Plt Count 103 L Neut % (Auto) 79.4 H Lymph % (Auto) 13.2 L [place] % (Auto) 5.4 Eos % (Auto) 1.5 L Baso % (Auto) 0.5 Neut # (Auto) 7900 H Lymph # (Auto) 1300 [place] # (Auto) 500 Eos # (Auto) 200 Baso # (Auto) 0 Sodium Potassium Chloride Carbon Dioxide BUN Creatinine Estimated GFR BUN/Creatinine Ratio Glucose Calcium Procalcitonin 4.50 H COVID-19 PCR Negative 12/02/19 05:21 WBC RBC Hgb Hct MCV MCH MCHC RDW Plt Count Neut % (Auto) Lymph % (Auto) [place] % (Auto) Eos % (Auto) Baso % (Auto) Neut # (Auto) Lymph # (Auto) [place] # (Auto) Eos # (Auto) Baso # (Auto) Sodium 135 L Potassium 4.1 Chloride 105 Carbon Dioxide 25 BUN 24 H Creatinine 0.78 Estimated GFR > 60.0 BUN/Creatinine Ratio 30.8 H Glucose 173 H Calcium 9.1 Procalcitonin COVID-19 PCR Discharge Plan Discharge Plan Patient Disposition: SNF Transfer to: [facility] Discharge comment: Patient was admitted to the hospital for severe sepsis secondary to UTI and obstructive uropathy / nephrolithiasis. She will continue on antibiotics for a total course of 2 weeks. She needs outpatient urology follow up next week for possible stent removal with Dr. Samuels. Discharge orders & Medications Prescriptions: New acetaminophen 325 mg Tablet 650 mg PO Q6HR PRN (Reason: Fever/Mild Pain (1-3)) 14 Days Qty: 50 RF: 0 polyethylene glycol 3350 17 gram Powder In Packet 17 gm PO DAILY 7 Days Qty: 7 RF: 0 ciprofloxacin HCl 250 mg Tablet 250 mg PO BID 9 Days Qty: 18 RF: 0 docusate sodium [DOK] 100 mg Capsule 100 mg PO BID 14 Days Qty: 28 RF: 0 guaifenesin [Mucus Relief ER] 600 mg Tablet Extended Release 12hr 1,200 mg PO BID 7 Days Qty: 28 RF: 0 Continued amlodipine 5 mg tablet 5 mg PO DAILY RF: 0 meloxicam 15 mg tablet,disintegrating 15 mg PO DAILY RF: 0 duloxetine 60 mg capsule,delayed release(DR/EC) 60 mg PO DAILY RF: 0 rosuvastatin 10 mg tablet 10 mg PO .COMPLEX RF: 0 pantoprazole 40 mg tablet,delayed release (DR/EC) 40 mg PO DAILY RF: 0 [COQ10] 1 tab PO DAILY Qty: 0 RF: 0 Discontinued duloxetine 60 MG capsule,delayed release(DR/EC) 60 mg PO QDAY Qty: 0 RF: 0 prednisone 10 mg tablet 10 mg PO DAILY RF: 0 Follow up/Referrals: Bowen Rios MD [Physician] - 1 Week Discharge Health Status Health Concerns: Sepsis, nephrolithiasis with obstruction s/p ureteral stent placement. Precautions: [place] Diet/Activity/Treatments Diet: Diet as Tolerated and Low-cholesterol Diet comment: As tolerated Activity: As tolerated Special Rehabilitation Services Reason for rehabilitation: Recovery r/t decondition Rehab type: Physical therapy and Occupational therapy Visit Report/Discharge Packet Instructions: DI for Kidney Infection, DI for Cystoscopy, How to Prevent Falls Visit Report Forms: Stroke Signs & Symptoms Discharges patient from system. Discharge Date/Time: 12/02/19 15:23 Quality VTE Deep Vein Thrombosis/Pulmonary Embolism Present on Admission: No
--- NOTE | 2019-12-02 10:11 | OT.IP.TRT ---
Current Diagnoses Sepsis, unspecified organism (11/27/19) Calculus of kidney (11/27/19) Urinary tract infection, site not specified (11/27/19) Severe sepsis with septic shock (11/27/19) Surgery Performed Operation Date: 11/27/19 16:15 Actual Procedures p Cystoscopy/ Placement Right Ureteral Stent(Right) - Bowen Rios MD Occupational Therapy Treatment Note M2 OT-IP Current Condition Start: 11/29/19 09:44 Freq: Status: Active Protocol: Document 11/29/19 08:52 CCC (Rec: 11/29/19 10:16 CCC [email or web address]) Occupational Therapy Current Condition Current Condition Evaluation Date 11/29/19 Treatment Diagnosis Sepsis, UTI, decreased cognition Diagnosis Onset Date 11/27/19 M3 OT- IP Subjective and Pain Start: 11/29/19 09:44 Freq: Status: Active Protocol: Document 12/02/19 10:25 CGR (Rec: 12/02/19 10:38 CGR [email or web address]) OT- Subjective Occupational Therapy Visit Type Type Progress Note Visit Start Time 09:30 Visit Stop Time 10:11 Total Visit Minutes 41 Notes Pt requests toileting and shower. Occupational Therapy Visit Comments Patient Comments I feel so tired. OT Pain Assessment Pain When Pain Assessed At Rest Pain Present Pain Present Pain Reported Location Right Lateral Abdomen Scale Used States discomfort but did not rate Management Techniques Modification of Treatment,Re- positioning M4 OT- IP ADL's Start: 11/29/19 09:44 Freq: Status: Active Protocol: Document 12/02/19 10:25 CGR (Rec: 12/02/19 10:38 CGR [email or web address]) OT [id number] Comments OT Self-Feeding Comments Not meal time OT ADL-Grooming Comments OT Grooming Comments Pt declined, too fatigued after shower OT ADL-Oral Care Comments Oral Care Comments Pt declined, too fatigued after shower OT ADL-Dressing General Eval Upper Body Dressing Ability Standby Assistance Lower Body Dressing Ability Standby Assistance Areas Needing Assistance Underpants/Brief,Socks Comments OT Dressing Comments Pt able to do dressing with SBA seated but needed extra time and VC for performing donning of brief in seated. OT ADL-Toileting General Evaluation Toileting Ability Standby Assistance Devices Toileting Assistive Devices Grab Bars Comments OT Toileting Comments seated on toilet. Pt is concerned about the dark color of her urine. Notifed nursing and nursing requested that I notify MD. MD also notified of pt's concerns. OT ADL-Bathing Bathing Type Bathing Type Shower General Evaluation Bathing Ability Minimal Assistance Areas Needing Assistance Retrieving/Setting Up Items Devices Bathing Equipment Hand Held Shower Sprayer, Shower Chair with Arms,Grab Bars Comments OT Bathing Comments Pt showered herself seated and needed min a for safety with standing for peircare in shower. Pt was able to dry and dress with set up and extra time. M5 OT- IP IADL's Start: 11/29/19 09:44 Freq: Status: Active Protocol: Document 11/29/19 08:52 CCC (Rec: 11/29/19 10:16 CCC [email or web address]) OT-Instrumental Activities of Daily Living Home Safety Awareness Home Safety Comments Pt having troublewith her train of thought and with cues and able to grossly answer the questions. Pt knew to get a fire extinguisher or with cues to call 911. however pt not able to recall how to use the fire extinguisher. Medication Management Medication Management Comments At this time due to pt's confusion, would be best to have someone assist her for these needs. Money Management Money Management Comments At this time due to pt's confusion, would be best to have someone assist her for these needs. Meal Preparation Meal Preparation Comments At this time due to pt's confusion and decreased activity tolerance, would be best to have someone assist her for these needs. Progressive Care Manager Progressive Care Manager Comments At this time due to pt's confusion and decreased activit tolerance, would be best to have someone assist her for these needs. Driving Driving Concerns Identified Regarding Safety Driving Comments Recommend no driving at this time and pt confused and not problem solving well at this time due to her UTI and sepsis . M6 OT- IP Functional Cognition Start: 11/29/19 09:44 Freq: Status: Active Protocol: Document 11/30/19 12:45 CGR (Rec: 11/30/19 13:10 CGR [email or web address]) Cognitive Factors Limiting Selfcare Function Cognitive Ability Level of Alertness Alert Patient Orientation Name,Age,Birthday,Month,Date, Year,Day of Week,Place, Situation Attention Span Ability Capable of Focused Attention, Capable of Sustained Attention Ability to Follow Commands Able to Follow Multi-Step Commands Cognitive Tests SLUMS Pt participated in the SLUMS this AM and scored 23/30. Pt was able to name 13 animals in 1 minute instead of 15+, she remembered 3/5 objects named for short term memory testing, and she was unable to correctly number or bethany the clock. Pt was able to state all answers to the listening comprehension section. Cognitive Comments Cognitive Assessment Comments Pt appears more cognitively cleared on this date. OT- Vision and Hearing OT- Hearing Assessment OT- Hearing Assessment WFL OT- Vision Assessment Visual Acuity Glasses All The Time Vision Assessment Comments Pt was wearing glasses. M7 OT- IP Mobility and Balance Start: 11/29/19 09:44 Freq: Status: Active Protocol: Document 12/02/19 10:25 CGR (Rec: 12/02/19 10:38 CGR [email or web address]) OT-Transfer Assessment Sit to and From Stand Sit to and from Stand Standby Assistance,Contact Guard Assistance Transfers Transfer Ability Standby Assistance,Contact Guard Assistance Technique Transfer Destination Bedside Commode,Chair,Shower Stall,Toilet Transfer Technique Stand Step Pivot Devices Transfer Assistive Devices Gait Belt,Front Wheeled Walker Comments Mobility Comments Pt needs CGA to SBA for all mobility at this time. OT- Balance Assessment Sitting Balance and Reactions Static Sitting Balance Ability Good Dynamic Sitting Balance Ability Good M8 OT- IP Objective Assessments Start: 11/29/19 09:44 Freq: Status: Active Protocol: Document 11/29/19 08:52 CCC (Rec: 11/29/19 10:16 CCC [email or web address]) OT Gross Range of Motion Upper Extremity Range of Motion Assessment Within Functional Limits OT Strength Upper Extremity Strength Assessment Within Functional Limits M9 OT- IP Assessment and Plan Start: 11/29/19 09:44 Freq: Status: Active Protocol: Document 12/02/19 10:25 CGR (Rec: 12/02/19 10:38 CGR [email or web address]) OT Summary Assessment and Plan Potential Rehabilitation Potential Good Analytic Complexity at Evaluation Low Summary OT Impairments Functional Cognition, Functional Mobility,Self- Feeding,Grooming,Dressing, Toileting,Bathing,Toilet Transfers,Shower Transfers, Activity Tolerance Progress Towards Goals Slow Progress due to Medical Issues,Slow Progress due to Activity Tolerance,Slow Progress due to Cognition Assessment Summary Pt is progressing with therapy but is currently greatly impacted by her endurance for ADLs and short functional mobility. Pt expresses feeling exhausted after toileting and shower. Pt also expresses concern for her swollen feet, dark urine, and green nasal discharge. Nursing and MD aware. Pt is planned for d/c to SNF today. Goals Self-Feeding Goal Independent Grooming Goal Independent Dressing Goal Independent Toileting Goal Independent Bathing Goal Independent Toilet Transfer Goal Independent Shower Transfer Goal Independent Patient/Caregiver Education Goal Caregiver Independent Assisting Patient Days to Meet Goals 15 Frequency of Treatment Frequency Of Treatment Once a Day Treatment Plan OT Treatment Plan ADL Training,Functional Cognition Training,Functional Mobility,Patient/Family Education,Discharge Planning Other Treatment Recommendations and Next ADLs to increase endurance. Treatment Focus Discharge Recommendations OT Discharge Recommendations SNF Rehab Other Discharge Recommendations Pt is likely safe for discharge home with assist. Given cog assessment and current mobility, home alone is likely not a safe option. However, given pt's endurance pt would really benefit from SNF at this time. Home Equipment Needs FWW versus 4WW Transportation Needs at Discharge Private Vehicle
[2019-12-02 11:56] VITALS: BP 125/78; PULSE 75; RESP 17; TEMP 36.6; O2SAT 95
--- NOTE | 2019-12-02 12:21 | PT.IPTN ---
Current Diagnoses Sepsis, unspecified organism (11/27/19) Calculus of kidney (11/27/19) Urinary tract infection, site not specified (11/27/19) Severe sepsis with septic shock (11/27/19) Surgery Performed Operation Date: 11/27/19 16:15 Actual Procedures p Cystoscopy/ Placement Right Ureteral Stent(Right) - Bowen Rios MD Physical Therapy Treatment Note M2 PT-IP Current Condition Start: 11/28/19 13:29 Freq: NEEDED Status: Active Protocol: Document 11/28/19 11:33 AB (Rec: 11/28/19 13:44 AB [id number]) Physical Therapy Current Condition Current Condition Evaluation Date 11/28/19 Treatment Diagnosis sepsis; UTI; difficulty in walking Onset Date 11/27/19 M3 PT-IP Subjective Start: 11/28/19 13:29 Freq: NEEDED Status: Active Protocol: Document 12/02/19 12:09 AW (Rec: 12/02/19 12:21 AW [id number]) Subjective Physical Therapy Visit Type Type Treatment Note Visit Start Time 10:38 Visit Stop Time 10:56 Total Visit Minutes 18 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 0 Physical Therapy Visit Comments Patient Comments pt is agreeable to do PT Therapy Pain Assessment Pain When Pain Assessed At Rest Pain Present Pain Present Denied Pain M4 PT-IP Mobility and Gait Start: 11/28/19 13:29 Freq: NEEDED Status: Active Protocol: Document 12/02/19 12:09 AW (Rec: 12/02/19 12:21 AW [id number]) PT-Transfer Assessment Sit to and From Stand Sit to and from Stand Standby Assistance,Contact Guard Assistance,Use of Upper Extremities Equipment Transfer Assistive Device Gait Belt,Front Wheeled Walker Orthotic/Prosthetic Devices or Brace: No Transfers Transfer Destination Chair Transfer Technique Stand Step Pivot Transfer Ability Level of Assist Standby Assistance,Contact Guard Assistance,Use of Upper Extremities Comments Mobility Comments Pt had been up with OT for shower and was sitting in the chair when PT arrived. Her son confirmed she had not been in bed since 0800 today. Pt stood using FWW CGA. She happily walked around the unit with FWW SBA to CGA with increased distance. She required frequent cues to slow down for energy conservation and safety. Pt was perseverating on discharge plan today as well as not feeling like herself. She was observed to take her eyes off her path frequently and bumped into colmenares and a doorframe twice during ambulation with FWW. Pt also trialed ambulation without AD which required CGA at all times and cues to attend to path and wayfinding. Pt returned to the room and requested to sit on the chair again where she could rest. Pt transferred to chair SBA and was positioned there with call light and table within reach. Chair alarm was placed for safety. Gait Assessment Gait Gait Assistance Required: Standby Assistance,Contact Guard Assist Distance (Feet) 250 Able to Maintain Weight Bearing Status Yes During Gait Assistive Devices Assistive Device Gait Belt,Front Wheeled Walker Orthotic/Prosthetic Devices or Brace: No Gait Deviations General Gait Pattern Decreased Stride Length, Decreased Feet Clearance Factors Limiting Gait Function Factors Limiting Gait Function Decreased Activity Tolerance, Decreased Strength,Difficulty Following Directions,Poor Balance,Poor Safety Awareness, Respiratory Distress Comments Gait Comments See mobility comments for details. Stair Climbing Assessment Comments Stair Climbing Comments Pt declined stair training today. M5 PT-IP Objective Assessments Start: 11/28/19 13:29 Freq: NEEDED Status: Active Protocol: Document 11/28/19 11:33 AB (Rec: 11/28/19 13:44 AB [id number]) Orientation Orientation/Cognition Level of Alertness Alert Orientation Name Safety Awareness Decreased Safety Awareness Gross Range of Motion Lower Extremity ROM Assessment Within Functional Limits Strength Lower Extremity Strength Assessment Bilaterally Impaired Hip 3+/5 Knee 4-/5 Sensation Assessment Sensation Gross Sensation WNL Muscle Tone Muscle Tone WNL Yes M6 PT-IP Treatment Start: 11/28/19 13:29 Freq: NEEDED Status: Active Protocol: Document 12/02/19 12:09 AW (Rec: 12/02/19 12:21 AW [id number]) Physical Therapy Treatment Education Education Provided Safety M7 PT-IP Assessment and Plan Start: 11/28/19 13:29 Freq: NEEDED Status: Active Protocol: Document 12/02/19 12:09 AW (Rec: 12/02/19 12:21 AW [id number]) PT Summary Assessment and Plan Potential Rehabilitation Potential Good Status of Condition at Evaluation Stable Summary Impairments ROM,Strength,Balance, Coordination,Cognition,Bed Mobility,Transfers,Gait, Activity Tolerance Progress Towards Goals Slow Progress due to Activity Tolerance Assessment Summary Pt remains somewhat confused and impulsive, requiring frequent orientation to path and wayfinding during ambulation. With FWW, pt required SBA (CGA with increased distance). Without AD, pt required CGA at all time. Pt will benefit from SNF rehab to address activity tolerance and to mitigate falls risk. Goals Bed Mobility Goal Standby Assistance Transfer Goal Standby Assistance,Front Wheeled Walker Gait Goal Standby Assistance,Front Wheel Walker Gait Distance 150 Other Goals up/down 18 steps L rail ascending SBA Days to Meet Goals 8 Frequency of Treatment Frequency Of Treatment Once a Day Treatment Plan Physical Therapy Treatment Plan Bed Mobility Training,Transfer Training,Gait Training, Therapeutic Exercise,Balance Retraining,Discharge Planning, Neuromuscular Re-ed Recommendations To Nursing Amount of Assist Needed 1 Person Assist Discharge Recommendations PT Discharge Recommendations Home with Assistance,SNF Rehab Equipment Needed for Home Before FWW if pt goes home Discharge Transportation Needs at Discharge Wheelchair/Cabulance
--- NOTE | 2019-12-02 14:55 | PC.NURSE ---
Addendum entered by Berna Carolina R.N. 12/02/19 15:02: Patient assisted into wheelchair for transport. Transfer packet given to equipment driver. All belongings sent with patient. Taken out to vehicle by transport staff. Report called in earlier. Original Note: Transfer to SNF: IV dc'd prior to today. All personal belongings collected and ready to send with patient. Packet/orders all ready to go. Report has been called to Janelle at [facility]. Patient is dressed and ready to go. Her son is sitting with her, waiting for transport which was supposed to arrive at 1430. Call light within reach.
--- NOTE | 2019-12-03 09:02 | CM.DPC ---
DCP cont: Faxed discharge summary to [facility] at fax # [phone]. Fax confirmation scanned in. Gail Boo, [facility] [employer]
== END 2019-12-02 15:23 | DRG 871 ==
LOC: ED 13:54 → AC 15:05 → ICU 11-28 10:27 → AC 11-30 11:30
PROVIDERS: Internal Medicine; Specialist; Admitting Provider Internal Medicine; Emergency Provider Emergency Medicine; Referring Provider Emergency Medicine; Visit Provider Internal Medicine
PROC: 0T9680Z Drainage of Right Ureter with Drainage Device, Via Natural or Artificial Opening Endoscopic (ICD-10-PCS; principal; 2019-11-27 16:15)
DX: A41.51 Sepsis due to Escherichia coli [E. coli] (principal); G93.41 Metabolic encephalopathy; J96.00 Acute respiratory failure, unspecified whether with hypoxia or hypercapnia; N17.9 Acute kidney failure, unspecified; N13.6 Pyonephrosis; N12 Tubulo-interstitial nephritis, not specified as acute or chronic; J45.901 Unspecified asthma with (acute) exacerbation; R65.20 Severe sepsis without septic shock; I95.9 Hypotension, unspecified; R74.0 Nonspecific elevation of levels of transaminase and lactic acid dehydrogenase [LDH]; K56.41 Fecal impaction; I48.91 Unspecified atrial fibrillation; F32.9 Major depressive disorder, single episode, unspecified; K21.9 Gastro-esophageal reflux disease without esophagitis; E78.5 Hyperlipidemia, unspecified; I10 Essential (primary) hypertension; Z11.59 Encounter for screening for other viral diseases; Z66 Do not resuscitate
CPT/HCPCS: 36415; 36592; 36600; 51701; 52330; 52332; 70450; 71045; 74018; 74176; 74177; 76000; 80048; 80053; 81001; 82550; 82805; 82962; 83036; 83605; 83690; 83735; 83880; 84132; 84145; 84443; 84484; 85025; 85610; 85730; 87040; 87077; 87086; 87150; 87186; 87205; 87635; 93005; 93306; 94640; 96361; 96365; 96366; 96367; 96375; 97116; 97129; 97162; 97165; 97530; 97535; 99222; 99231; 99285; 99291; A9270; J0696; J1170; J1940; J2270; J2543; J2704; J3010; J3480; J7613; Q9967

== ENCOUNTER 2019-12-10 08:55 | Emergency (ER) | payer MEDICARE, OTHER, SELFPAY ==
[2019-11-28 13:40] VITALS: BMI 29.4
[2019-12-10] VITALS (24 sets, daily range): BP systolic 101–127; BP diastolic 58–77; PULSE 100–109; RESP 20–38; TEMP 36.5; O2SAT 89–96; BMI 29.8
--- NOTE | 2019-12-10 09:22 | DI.RAD.S_ITS ---
PROCEDURE: XR CHEST 2V INDICATIONS: cough, asthma wheezing recent sepsis TECHNIQUE: 2 views of the chest were acquired. COMPARISON: [facility], CR, XR CHEST 1V, 11/28/2019, 19:21. FINDINGS: Surgical changes and devices: None. Lungs and pleura: Lungs demonstrate chronically coarse interstitial markings, but with resolution of alveolar opacities previously seen. No pleural effusions or pneumothorax. Mediastinum: Mediastinal contours are normal. Heart size is normal. Bones and chest wall: No suspicious bony abnormalities. Soft tissues appear unremarkable. IMPRESSION: 1. Chronically coarse interstitial markings, likely emphysema or chronic edema. There may be underlying fibrosis. 2. No acute opacities. Dictated by: Radha Eddy M.D. on 12/10/2019 at 9:50 Approved by: Radha Eddy M.D. on 12/10/2019 at 9:54
--- NOTE | 2019-12-10 09:30 | ED.SOB ---
HPI - SOB/Dyspnea General Chief Complaint: Shortness of Breath/Dyspnea Stated Complaint: Shortness of Breath Time Seen by Provider: 12/10/19 09:02 Source: patient Mode of arrival: Ambulatory Limitations: no limitations History of Present Illness HPI Narrative: CC: Shortness of breath HPI: The patient is a 74-year-old female who has a history of asthma without allergies. The patient has developed progressively worsening shortness of breath over the last 2-3 days prior to admission. Yesterday it became very bad. This morning the patient became very short of breath and was unable to walking collapsed into her bed hard to breathe. She is not on home oxygen. She did not turn blue or cyanotic according to the patient's son/grandson. Patient has had some dry cough with periodic minimal production of sputum that is without hemoptysis and is clear. The patient has developed progressive weakness and fatigue. Periodically the patient has what appears to be panic attacks with shortness of breath and painting. She denies any chest pain has had some mild dizziness arm no racing of the heart. She has had no recent nasal congestion sinus congestion headache. One moment the patient will be hot then the next moment she will be cold. She has no documented fever she denied any chills but has had profuse arms sweats. She has been taking Tylenol around the clock for arm discomfort. The patient has some mild lower abdominal pain that is sharp and crampy. She has had no nausea no vomiting. She has had no new urinary symptoms. The patient 1 week ago was admitted to the hospital for sepsis. She had a kidney stone. She was discharged home and is currently on Cipro. The patient admits to history of asthma and states that she is prediabetic. She has had no myocardial infarction or congestive heart failure. Related Data Home Medications Medication Instructions Recorded Confirmed meloxicam 15 mg disintegrating 15 mg PO DAILY 09/06/19 12/10/19 tablet pantoprazole 40 mg tablet,delayed 40 mg PO DAILY 09/06/19 12/10/19 release amlodipine 5 mg PO DAILY 12/10/19 12/10/19 atorvastatin 20 mg PO BEDTIME 12/10/19 12/10/19 beclomethasone dipropionate [Qvar 2 inh INHALATION BID 12/10/19 12/10/19 RediHaler] coenzyme Q10 50 mg PO QAM 12/10/19 12/10/19 guaifenesin 1,200 mg PO BID 12/10/19 12/10/19 polyethylene glycol 3350 17 g PO DAILY 12/10/19 12/10/19 Previous Rx's Medication Instructions Recorded acetaminophen 650 mg PO Q6HR PRN 14 Days #50 tab 12/02/19 ciprofloxacin HCl 250 mg PO BID 9 Days #18 tab 12/02/19 docusate sodium [DOK] 100 mg PO BID 14 Days #28 cap 12/02/19 Allergies Allergy/AdvReac Type Severity Reaction Status Date / Time Penicillins Allergy Unknown UNK Verified 12/10/19 12:31 procaine [From Novocain] Allergy Unknown JITTERS Verified 12/10/19 12:31 Review of Systems Review of Systems Narrative: Review of systems are negative except for those mentioned in the history of present illness. Patient History Medical History Ankle fracture, left (Acute) Asthma (Acute) Depression (Acute) GERD (gastroesophageal reflux disease) (Acute) Hyperlipidemia (Acute) Hypertension (Acute) Osteoarthritis (Acute) Surgical History History of cataract removal with insertion of prosthetic lens (Acute) History of left inguinal hernia repair (Acute) History of tonsillectomy (Acute) Family History Mother Heart failure Father Heart attack Brother Heart attack Social History household members: none Smoking Status: Never smoker alcohol intake: never Smoking Status: Never smoker Substance Use Type: does not use Exam Narrative Exam Narrative: PHYSICAL EXAM: CONSTITUTIONAL: Awake, Alert, Oriented, Coherent, Cooperative in moderate respiratory distress. The patient is tachypneic with shallow respirations. She talks with a whisper and has conversive dyspnea. HEAD: AT/NC EENT: PERRL, FROM of eyes, no discharge. NOSE:No epistaxis or nasal drainage MOUTH:Oral mucosa is moist and pale pink, NECK: Supple, no obvious JVD, Trachea is midline without stridor, no palpable LN. Patient has a short neck SPINE: Palpation of the cervical, Thoracic, Lumbar or Sacral spine reveals no gross deformity or tenderness. No CVA tenderness. THORAX: No deformity, retractions, chest wall tenderness. LUNGS: Shallow respirations decreased breath sounds and no wheezes or rhonchi noted HEART: Normal heart tones, regular rhythm and rate without murmur. ABDOMEN: Soft, non-tender, normal bowel sounds without guarding, rebound, rigidity or palpable mass. EXTREMITIES: No edema, deformity, tenderness or cyanosis. SKIN: No rash, bruising, petechiae or purpura. NEURO: Awake, alert, oriented, conversive, cranial nerves II-XII are symmetrical , moves all 4 extremities and is ambulatory. MENTAL HEALTH: Appears very anxious Initial Vital Signs Initial Vital Signs: Vital Signs Temperature 97.7 F 12/10/19 09:08 Pulse Rate 107 H 12/10/19 09:08 Respiratory Rate 20 12/10/19 09:08 Blood Pressure 101/67 12/10/19 09:08 Pulse Oximetry 93 12/10/19 09:08 Course Course Course Narrative: 1127: The patient's CT scan per the radiologist ( Dr. Coppola) reveals that the patient has a very large saddle pulmonary embolism The patient's arterial blood gases reveal a pH is 7.416, pCO2 of 25.8 PO2 of 57 and an oxygen saturation of 90%. These gases were obtained on room air. The patient was placed on 4 L of nasal O2. She may need to be switched to a non-rebreather mask. A call has been placed to [facility] to see if they have an intensive care unit bed a that the patient can be transferred to with the elevated troponin. 1320: After discussing the prognosis and situation with her family she has agreed to accept being transferred to a higher level of care and has agreed to grade except and received tPA. The patient and her son were informed that there is a 1-2% chance that she could have an intracranial hemorrhage and hemorrhagic stroke that could result in permanent neurological disability as well as the potential for . Since I have initiated heparin this starting tPA with the twist packer at [facility] before proceeding with its administration. The patient's credit risk review officer and primary care physician is at [facility]. Initially the patient and her family were refusing any intervention because the patient is essentially do not resuscitate no CPR no intubation. I explained to them that this does not preclude treatment and possible further evaluation to prevent any further complications and injury secondary to her acute pathology. 1320: The patient's CT angiogram of her chest revealed: MPRESSION: Prominent pulmonary embolism can be seen, which involves all 5 lobes of the lungs. There is a saddle embolism seen across the main pulmonary bifurcation. Mild consolidation can be seen involving the right posterior costophrenic angle, which is attributed to atelectasis. Reflux of contrast can be seen into the inferior vena cava and into the patent veins. This is commonly seen in patients with heart failure. Incidental note is made of: Small hiatal hernia Note: Case discussed by telephone with Dr. Arellano at 10:25 a.m. [place] time on December 10, 2019. -- CT of the patient's abdomen revealed: IMPRESSION: Right-sided double-J stent, as before. No right-sided hydronephrosis. Nonobstructing right-sided kidney stones. Incidental note is made of: Small hiatal hernia Dextroconvex lumbar scoliosis Dictated by: Byron Zavala M.D. on 12/10/2019 at 10:28 Approved by: Byron Zavala M.D. on 12/10/2019 at 10:40 A call has been placed to [facility] and intensive care unit to discuss transferring this patient to their institution. 1417: I discussed the patient with the intensive care resident at [facility] ICU. Dr. Dany Pino is the accepting physician. We will transfer the patient by air because of the distance in time. The patient has been stable here at [facility]. The patient was informed of the plan and the transfer. She stated that she may not remember what she has been told and asked that I discuss it and inform her son which we did. The patient will be transferred on heparin and they will decide and re-evaluate the patient for possible catheter directed tPA/ thrombolytic therapy. The patient's primary care physician is Dr. Karen Palencia in [place] who knows who the patient's credit risk review officer is. Orders Ordered: ED Orders 12/10/19 10:30 CT angio chest PE protocol Stat 12/10/19 10:36 CT abdomen pelvis wo con Stat 12/10/19 11:22 Arterial Blood Gas Stat 12/10/19 11:28 Lactate (Lactic Acid) Stat Troponin I Stat 12/10/19 13:55 Urinalysis and Microscopic Stat Urine Culture Stat Discontinued Medications Albuterol (Ventolin) 20 mg INH NOW ONE Stop: 12/10/19 09:23 Last Admin: 12/10/19 10:08 Dose: Not Given Documented by: NGOC Albuterol (Ventolin) 2.5 mg INH NOW ONE Stop: 12/10/19 10:10 Last Admin: 12/10/19 10:11 Dose: 2.5 mg Documented by: ROSANNA Albuterol/Ipratropium (Duoneb) 3 ml INH NOW ONE Stop: 12/10/19 09:23 Last Admin: 12/10/19 09:49 Dose: 3 ml Documented by: ROSANNA Heparin Sodium (Porcine) (Heparin) 5,000 unit IV NOW ONE Stop: 12/10/19 10:29 Last Admin: 12/10/19 10:43 Dose: 5,000 unit Documented by: FREDERIC Sodium Chloride (Normal Saline 0.9%) 1,000 mls @ 1,000 mls/hr IV BOLUS ONE Stop: 12/10/19 10:21 Last Infusion: 12/10/19 14:59 Dose: 0 mls/hr Documented by: Infusion: 12/10/19 10:27 Dose: 125 mls/hr Documented by: Admin: 12/10/19 09:53 Dose: 1,000 mls/hr Documented by: FREDERIC Magnesium Sulfate (Magnesium Sulfate) 2 gm in 50 mls @ 25 mls/hr IV NOW ONE Stop: 12/10/19 11:21 Last Infusion: 12/10/19 12:02 Dose: 0 mls/hr Documented by: FREDERIC Cosigned by: TITO Admin: 12/10/19 09:53 Dose: 25 mls/hr Documented by: FREDERIC Cosigned by: PHOEBE Heparin Sodium/Dextrose (Heparin Drip) 25,000 unit in 500 mls @ 20 mls/hr IV CONT JANIE; Protocol Last Titration: 12/10/19 15:00 Dose: 0 units/hr, 0 mls/hr Documented by: Admin: 12/10/19 10:43 Dose: 1,000 units/hr, 20 mls/hr Documented by: FREDERIC Methylprednisolone (Solu-Medrol 125 Mg Vial) 125 mg IV NOW ONE Stop: 12/10/19 09:23 Last Admin: 12/10/19 09:53 Dose: 125 mg Documented by: FREDERIC Morphine Sulfate (Morphine) 4 mg IV NOW ONE Stop: 12/10/19 13:57 Last Admin: 12/10/19 14:04 Dose: 4 mg Documented by: FREDERIC Ondansetron HCl (Zofran) 4 mg IV NOW ONE Stop: 12/10/19 13:57 Last Admin: 12/10/19 14:05 Dose: 4 mg Documented by: FREDERIC Vital Signs Vital signs: Vital Signs - 8 hr 12/10/19 11:27 12/10/19 11:30 12/10/19 11:45 Pulse Rate 105 H 104 H 104 H Respiratory Rate 38 H 21 23 Blood Pressure 109/68 117/62 123/77 Pulse Oximetry 91 94 95 12/10/19 12:00 12/10/19 12:15 12/10/19 12:30 Pulse Rate 106 H 108 H 107 H Respiratory Rate 25 H 26 H 24 Blood Pressure 124/75 127/77 122/70 Pulse Oximetry 95 94 93 12/10/19 12:45 12/10/19 13:00 12/10/19 13:15 Pulse Rate 108 H 105 H 104 H Respiratory Rate 21 28 H 28 H Blood Pressure 117/70 115/67 113/58 L Pulse Oximetry 94 93 94 12/10/19 13:30 12/10/19 13:45 12/10/19 14:00 Pulse Rate 103 H 103 H 100 H Respiratory Rate 23 26 H 23 Blood Pressure 119/64 122/68 111/61 Pulse Oximetry 94 94 94 12/10/19 14:15 12/10/19 14:30 Pulse Rate 103 H 102 H Respiratory Rate 24 25 H Blood Pressure 124/69 122/76 Pulse Oximetry 94 92 MDM - SOB/Dyspnea Medical Records Attestation: I reviewed the patient's medical records. Lab Data Attestation: I reviewed the patient's lab results. Result diagrams: 12/10/19 09:00 12/10/19 09:00 Labs: Lab Results 12/10/19 12/10/19 12/10/19 Range/Units 09:00 09:00 09:52 WBC 11.7 H (4.5-11.0) X10^3/uL RBC 5.22 H (4.0-5.2) X10^6/uL Hgb 14.6 (12.0-16.0) g/dL Hct 45.1 (36-46) % MCV 86.4 (80-100) fL MCH 28.0 (26-34) PG MCHC 32.4 (30-36) % RDW 15.5 H (11.6-14.8) % Plt Count 557 H (150-400) X10^3/uL Neut % (Auto) 67.9 (50-75) % Lymph % (Auto) 22.1 L (25-40) % [place] % (Auto) 6.9 (3-14) % Eos % (Auto) 1.8 L (2-4) % Baso % (Auto) 1.3 (0-2) % Neut # (Auto) 8000 H (8733-4084) /uL Lymph # (Auto) 2600 (1913-7674) /uL [place] # (Auto) 800 (0-900) /uL Eos # (Auto) 200 (0-450) /uL Baso # (Auto) 200 H (0-100) /uL D-Dimer (<230) ng/mL ABG pH (7.35-7.45) ABG pCO2 (35-45) mmHg ABG pO2 (80-100) mmHg ABG HCO3 (22-26) mmol/L ABG Total CO2 (21-31) mmol/L ABG O2 Saturation (95-100) % ABG Base Excess (-2-2) mmol/L FiO2 Sodium 141 (137-145) mmol/L Potassium 4.4 (3.4-5.1) mmol/L Chloride 107 (98-107) mmol/L Carbon Dioxide 23 (22-32) mmol/L BUN 18 H (7-17) mg/dL Creatinine 0.99 (0.52-1.04) mg/dL Estimated GFR 54.8 L (>60) mL/min BUN/Creatinine Ratio 18.2 (6-22) Glucose 169 H (80-110) mg/dL Lactate 2.0 (0.7-2.1) mmol/L Calcium 10.3 H (8.4-10.2) mg/dL Total Bilirubin 0.7 (0.2-1.3) mg/dL AST 24 (14-36) IU/L ALT 15 (<35) IU/L Alkaline Phosphatase 150 H (38-126) U/L Total Creatine Kinase 26 L (30-135) U/L CK-MB (CK-2) TNP CK-MB (CK-2) Rel Index TNP Troponin I 0.265 H* (0.01-0.034) ng/mL NT-Pro-B Natriuret Pep 5740 H (<125) pg/mL Total Protein 7.6 (6.3-8.2) g/dL Albumin 4.0 (3.5-5.0) g/dL Globulin 3.6 (1.7-4.1) g/dL Albumin/Globulin Ratio 1.1 (1.0-2.8) Urine Color Urine Appearance Urine pH (4.5-8.0) Ur Specific [place] (1.000-1.035) Urine Protein (Negative) Urine Glucose (UA) (Negative) g/dL Urine Ketones (NEGATIVE) Urine Occult Blood (Negative) Urine Nitrate (Negative) Urine Bilirubin (NEGATIVE) Urine Urobilinogen (0.2) E.U./dL Ur Leukocyte Esterase (NEGATIVE) Urine RBC (0-5/HPF) Urine WBC (0-5/HPF) Ur Squamous Epith Cells (0-5/HPF) Urine Bacteria (None) Ur Culture Indicated? COVID-19 PCR (Negative) 12/10/19 12/10/19 12/10/19 Range/Units 09:57 11:22 11:28 WBC (4.5-11.0) X10^3/uL RBC (4.0-5.2) X10^6/uL Hgb (12.0-16.0) g/dL Hct (36-46) % MCV (80-100) fL MCH (26-34) PG MCHC (30-36) % RDW (11.6-14.8) % Plt Count (150-400) X10^3/uL Neut % (Auto) (50-75) % Lymph % (Auto) (25-40) % [place] % (Auto) (3-14) % Eos % (Auto) (2-4) % Baso % (Auto) (0-2) % Neut # (Auto) (7910-2117) /uL Lymph # (Auto) (1588-5815) /uL [place] # (Auto) (0-900) /uL Eos # (Auto) (0-450) /uL Baso # (Auto) (0-100) /uL D-Dimer 4473 H (<230) ng/mL ABG pH 7.42 (7.35-7.45) ABG pCO2 25.8 L (35-45) mmHg ABG pO2 57 L (80-100) mmHg ABG HCO3 17 L (22-26) mmol/L ABG Total CO2 17 L (21-31) mmol/L ABG O2 Saturation 90 L (95-100) % ABG Base Excess -8.0 L (-2-2) mmol/L FiO2 21 Sodium (137-145) mmol/L Potassium (3.4-5.1) mmol/L Chloride (98-107) mmol/L Carbon Dioxide (22-32) mmol/L BUN (7-17) mg/dL Creatinine (0.52-1.04) mg/dL Estimated GFR (>60) mL/min BUN/Creatinine Ratio (6-22) Glucose (80-110) mg/dL Lactate (0.7-2.1) mmol/L Calcium (8.4-10.2) mg/dL Total Bilirubin (0.2-1.3) mg/dL AST (14-36) IU/L ALT (<35) IU/L Alkaline Phosphatase (38-126) U/L Total Creatine Kinase (30-135) U/L CK-MB (CK-2) CK-MB (CK-2) Rel Index Troponin I 0.415 H* (0.01-0.034) ng/mL NT-Pro-B Natriuret Pep (<125) pg/mL Total Protein (6.3-8.2) g/dL Albumin (3.5-5.0) g/dL Globulin (1.7-4.1) g/dL Albumin/Globulin Ratio (1.0-2.8) Urine Color Urine Appearance Urine pH (4.5-8.0) Ur Specific [place] (1.000-1.035) Urine Protein (Negative) Urine Glucose (UA) (Negative) g/dL Urine Ketones (NEGATIVE) Urine Occult Blood (Negative) Urine Nitrate (Negative) Urine Bilirubin (NEGATIVE) Urine Urobilinogen (0.2) E.U./dL Ur Leukocyte Esterase (NEGATIVE) Urine RBC (0-5/HPF) Urine WBC (0-5/HPF) Ur Squamous Epith Cells (0-5/HPF) Urine Bacteria (None) Ur Culture Indicated? COVID-19 PCR (Negative) 12/10/19 12/10/19 12/10/19 Range/Units 11:28 13:55 14:11 WBC (4.5-11.0) X10^3/uL RBC (4.0-5.2) X10^6/uL Hgb (12.0-16.0) g/dL Hct (36-46) % MCV (80-100) fL MCH (26-34) PG MCHC (30-36) % RDW (11.6-14.8) % Plt Count (150-400) X10^3/uL Neut % (Auto) (50-75) % Lymph % (Auto) (25-40) % [place] % (Auto) (3-14) % Eos % (Auto) (2-4) % Baso % (Auto) (0-2) % Neut # (Auto) (3975-1081) /uL Lymph # (Auto) (8946-1490) /uL [place] # (Auto) (0-900) /uL Eos # (Auto) (0-450) /uL Baso # (Auto) (0-100) /uL D-Dimer (<230) ng/mL ABG pH (7.35-7.45) ABG pCO2 (35-45) mmHg ABG pO2 (80-100) mmHg ABG HCO3 (22-26) mmol/L ABG Total CO2 (21-31) mmol/L ABG O2 Saturation (95-100) % ABG Base Excess (-2-2) mmol/L FiO2 Sodium (137-145) mmol/L Potassium (3.4-5.1) mmol/L Chloride (98-107) mmol/L Carbon Dioxide (22-32) mmol/L BUN (7-17) mg/dL Creatinine (0.52-1.04) mg/dL Estimated GFR (>60) mL/min BUN/Creatinine Ratio (6-22) Glucose (80-110) mg/dL Lactate 1.5 (0.7-2.1) mmol/L Calcium (8.4-10.2) mg/dL Total Bilirubin (0.2-1.3) mg/dL AST (14-36) IU/L ALT (<35) IU/L Alkaline Phosphatase (38-126) U/L Total Creatine Kinase (30-135) U/L CK-MB (CK-2) CK-MB (CK-2) Rel Index Troponin I (0.01-0.034) ng/mL NT-Pro-B Natriuret Pep (<125) pg/mL Total Protein (6.3-8.2) g/dL Albumin (3.5-5.0) g/dL Globulin (1.7-4.1) g/dL Albumin/Globulin Ratio (1.0-2.8) Urine Color Yellow Urine Appearance Slightly cloudy Urine pH 5.5 (4.5-8.0) Ur Specific [place] <=1.005 (1.000-1.035) Urine Protein 1+ H (Negative) Urine Glucose (UA) Negative (Negative) g/dL Urine Ketones Trace H (NEGATIVE) Urine Occult Blood 3+ H (Negative) Urine Nitrate Negative (Negative) Urine Bilirubin Negative (NEGATIVE) Urine Urobilinogen 0.2 (0.2) E.U./dL Ur Leukocyte Esterase Trace H (NEGATIVE) Urine RBC 30-100/hpf H (0-5/HPF) Urine WBC 5-10/hpf H (0-5/HPF) Ur Squamous Epith Cells 1-5 /hpf (0-5/HPF) Urine Bacteria Few (2-10) H (None) Ur Culture Indicated? Specimen cultured COVID-19 PCR Negative (Negative) ECG Data Attestation: I personally reviewed and interpreted this ECG as follows: Interpretation: 0934: The patient's EKG obtained at 9:01 a.m. revealed a sinus tachycardia with a ventricular rate of 112. The WI interval is normal at 154. Her QRS is prolonged at 154 milliseconds and has a right bundle branch block confirmation. Her QTC is 526 milliseconds which is prolonged. Her axis is right axis deviation. The patient has inverted T-waves in V1 V2 V3 V4 V5 which is consistent with her right bundle branch block confirmation. There are no other acute diagnostic ST or T-wave changes noted. She has T-wave inversions in leads III and AVF. Discharge Plan Departure Patient Disposition: [facility] Clinical Impression: Shortness of breath, History of asthma, Multiple pulmonary emboli Acute saddle pulmonary embolus Qualifiers: Acute cor pulmonale presence: with acute cor pulmonale Qualified Code(s): I26.02 - Saddle embolus of pulmonary artery with acute cor pulmonale Discharge Date/Time: 12/10/19 15:23 Prescriptions: No Action meloxicam 15 mg tablet,disintegrating 15 mg PO DAILY RF: 0 pantoprazole 40 mg tablet,delayed release (DR/EC) 40 mg PO DAILY RF: 0 acetaminophen 325 mg Tablet 650 mg PO Q6HR PRN (Reason: Fever/Mild Pain (1-3)) 14 Days Qty: 50 RF: 0 ciprofloxacin HCl 250 mg Tablet 250 mg PO BID 9 Days Qty: 18 RF: 0 docusate sodium [DOK] 100 mg Capsule 100 mg PO BID 14 Days Qty: 28 RF: 0 polyethylene glycol 3350 17 gram Powder In Packet 17 g PO DAILY RF: 0 coenzyme Q10 50 mg Capsule 50 mg PO QAM RF: 0 guaifenesin 1,200 mg Tablet Extended Release 12hr 1,200 mg PO BID RF: 0 Qvar RediHaler 40 mcg/actuation HFA aerosol breath activated 2 inh INHALATION BID RF: 0 atorvastatin 20 mg Tablet 20 mg PO BEDTIME RF: 0 amlodipine 5 mg Tablet 5 mg PO DAILY RF: 0
[2019-12-10 09:36] LABS: Add Manual Diff / Slide Review NO; Basophils Absolute Auto 200 /uL (0-100); Basophils Percent Auto 1.3 % (0-2); Eosinophils Absolute Auto 200 /uL (0-450); Eosinophils Percent Auto 1.8 % (2-4); Hematocrit 45.1 % (36-46); Hemoglobin 14.6 g/dL (12.0-16.0); Lymphocytes Absolute Auto 2600 /uL (1100-4500); Lymphocytes Percent Auto 22.1 % (25-40); Mean Corpuscular HGB Conc 32.4 % (30-36); Mean Corpuscular Volume 86.4 fL (80-100); Monocytes Absolute Auto 800 /uL (0-900); Monocytes Percent Auto 6.9 % (3-14); Neutrophils Absolute Auto 8000 /uL (1500-7000); Neutrophils Percent Auto 67.9 % (50-75); Platelet Count 557 X10^3/uL (150-400); Red Blood Cell Count 5.22 X10^6/uL (4.0-5.2); Red Cell Distribution Width 15.5 % (11.6-14.8); White Blood Cell Count 11.7 X10^3/uL (4.5-11.0)
[2019-12-10 09:41] LABS: Alanine Aminotransferase 15 IU/L (<35); Albumin Globulin Ratio 1.1 (1.0-2.8); Alkaline Phosphatase 150 U/L (38-126); Aspartate Aminotransferase 24 IU/L (14-36); BUN Creatinine Ratio 18.2 (6-22); Bilirubin Total 0.7 mg/dL (0.2-1.3); Blood Urea Nitrogen 18 mg/dL (7-17); Calcium 10.3 mg/dL (8.4-10.2); Carbon Dioxide 23 mmol/L (22-32); Chloride 107 mmol/L (98-107); Creatine Kinase 26 U/L (30-135); Estimated Glomerular Filt Rate 54.8 mL/min (>60); Globulin 3.6 g/dL (1.7-4.1); Glucose 169 mg/dL (80-110); HEMOLYSIS < 15 (0-50); Potassium 4.4 mmol/L (3.4-5.1); Sodium 141 mmol/L (137-145); Total Protein 7.6 g/dL (6.3-8.2)
[2019-12-10] MEDS: ALBUTEROL/IPRATROPIUM 3 ML AMPUL INH (09:49)
[2019-12-10 09:53] LABS: NT-proBNP (BNP-Adult 18+) 5740 pg/mL (<125)
[2019-12-10] MEDS: MAGNESIUM SULFATE 2 GM/50 ML PIGGYBACK IV (09:53)
[2019-12-10] MEDS: SODIUM CHLORIDE 0.9% 1,000 ML 1000 ML IV (09:53)
[2019-12-10] MEDS: methylPREDNISolone 125 MG/2 ML VIAL IV (09:53)
[2019-12-10] MEDS: ALBUTEROL 2.5 MG/3 ML NEB (ADULT) INH (10:11)
[2019-12-10 10:13] LABS: D Dimer 4473 ng/mL (<230)
[2019-12-10 10:16] LABS: Troponin I 0.265 ng/mL (0.01-0.034)
--- NOTE | 2019-12-10 10:30 | DI.CT.S_ITS ---
PROCEDURE: CT ANGIO CHEST PE PROTOCOL INDICATIONS: SOB, Tachycardia, elevated Dimer, elevated troponin r/o PE TECHNIQUE: After the administration of intravenous contrast, 2 mm thick sections acquired from the pulmonary apices to the posterior costophrenic angles. 3-dimensional maximum intensity projection (MIP) coronal and sagittal reformats were then acquired through the thorax. For radiation dose reduction, the following was used: automated exposure control, adjustment of mA and/or kV according to patient size. COMPARISON: [facility], CT, CT KIDNEY URETER BLADDER (KUB), 11/28/2019, 14:09. [facility], CR, XR CHEST 2V, 12/10/2019, 10:11. [facility], CT, CT ABDOMEN PELVIS WO CON, 12/10/2019, 10:45. [facility], CT, CT ABDOMEN PELVIS W CON, 11/27/2019, 11:45. FINDINGS: Image quality: Excellent. Pulmonary arteries: Prominent pulmonary embolism is seen, which involves all 5 lobes of the lung. There is a 7 middle Jamil wisdom seen across the main pulmonary artery bifurcation, as on series 5, image 76. Lungs and pleura: Mild consolidation can be seen involving the right posterior costophrenic angle, as on series 6, image 238. No pleural effusions or pneumothorax. Central and peripheral airways are patent. Mediastinum: Heart size is normal, without pericardial effusion. No mediastinal or hilar adenopathy. Thoracic aorta is normal in caliber and enhancement. Esophagus is normal in caliber. There is a small hiatal hernia. Bones and chest wall: No suspicious bony lesions. Ribs and thoracic spine appear intact throughout. Thyroid gland demonstrates no significant abnormality. No axillary or supraclavicular adenopathy. Abdomen: Reflux of contrast can be seen into the inferior vena cava and into the attic pains. The visualized portions of the upper abdominal structures are otherwise unremarkable for imaging technique. IMPRESSION: Prominent pulmonary embolism can be seen, which involves all 5 lobes of the lungs. There is a saddle embolism seen across the main pulmonary bifurcation. Mild consolidation can be seen involving the right posterior costophrenic angle, which is attributed to atelectasis. Reflux of contrast can be seen into the inferior vena cava and into the patent veins. This is commonly seen in patients with heart failure. Incidental note is made of: Small hiatal hernia Note: Case discussed by telephone with Dr. Arellano at 10:25 a.m. [place] time on December 10, 2019. Dictated by: Byron Zavala M.D. on 12/10/2019 at 10:23 Approved by: Byron Zavala M.D. on 12/10/2019 at 10:27
--- NOTE | 2019-12-10 10:36 | DI.CT.S_ITS ---
PROCEDURE: CT ABDOMEN PELVIS WO CON INDICATIONS: looking for stent patentcy, kidney stones TECHNIQUE: Noncontrast 5 mm thick sections acquired from the diaphragms to the symphysis. 5 mm thick coronal and sagittal reformats were then performed. For radiation dose reduction, the following was used: automated exposure control, adjustment of mA and/or kV according to patient size. COMPARISON: [facility], CT, CT KIDNEY URETER BLADDER (KUB), 11/28/2019, 14:09. [facility], CT, CT ABDOMEN PELVIS W CON, 11/27/2019, 11:45. [facility], CT, CT ANGIO CHEST PE PROTOCOL, 12/10/2019, 10:45. [facility], CR, XR CHEST 2V, 12/10/2019, 10:11. FINDINGS: Image quality: Excellent. Lung bases: Lung bases are clear. Heart size is normal. A small hiatal hernia is incidentally noted. Urinary system: A right-sided double-J stent is seen. The ends are seen in the expected locations Nonobstructing stones are seen within the right kidney that measure up to 1 cm. No right-sided hydronephrosis is seen. No left-sided kidney stones are seen. No left-sided hydronephrosis. Bladder wall thickness is normal; no calcified bladder stones. Other solid organs: Liver is normal in size. Gallbladder wall is not thickened this. Pancreas is normal in contours. Spleen is normal in size. No adrenal nodules. Peritoneum and bowel: Unenhanced bowel loops demonstrate normal wall thickness and caliber. No free fluid or air. Nodes and vessels: No retroperitoneal or mesenteric adenopathy by size criteria. Aorta and inferior vena cava are normal in caliber. Abdominal wall: No ventral hernias. Pelvis: No free pelvic fluid. No inguinal hernias or adenopathy. Bones: No suspicious bony lesions. No vertebral body compression fractures. Moderate dextroconvex scoliosis is seen. Degenerative changes are seen, which are most prominent involving the lumbar spine. IMPRESSION: Right-sided double-J stent, as before. No right-sided hydronephrosis. Nonobstructing right-sided kidney stones. Incidental note is made of: Small hiatal hernia Dextroconvex lumbar scoliosis Dictated by: Byron Zavala M.D. on 12/10/2019 at 10:28 Approved by: Byron Zavala M.D. on 12/10/2019 at 10:40
[2019-12-10] MEDS: HEPARIN DRIP 25,000 UNIT/500 ML IV.SOLN 20 UNIT IV (10:43)
[2019-12-10] MEDS: HEPARIN 5,000 UNIT/ML VIAL 5000 UNIT IV (10:43)
[2019-12-10 11:43] LABS: Fractionated Inspired Oxygen 21; HCO3 ABG 17 mmol/L (22-26); Oxygen Saturation ABG 90 % (95-100); PCO2 ABG 25.8 mmHg (35-45); PO2 ABG 57 mmHg (80-100); TCO2 ABG 17 mmol/L (21-31); pH ABG 7.42 (7.35-7.45)
[2019-12-10 11:48] LABS: Lactate (Lactic Acid) 1.5 mmol/L (0.7-2.1)
[2019-12-10 12:07] LABS: Troponin I 0.415 ng/mL (0.01-0.034)
--- NOTE | 2019-12-10 12:42 | PC.NURSE ---
Pt has strict POLST form which indicates comfort measures only. Pt has accepted interventional care recently with stent r/t infected kidney stone / sepsis. Pt was discharged and has now developed a saddle PE. Pt has been offered intervention care in form of TPA &/or interventional radiology as available and indicated after review from outside facility. Pt's family and patient are discussion (1) discontinuation of all care (2) heparin only (3) higher level of care as described. Discussed options w/ pt and family, answered questions to the best of my ability. Discussed possible outcomes including worsening, , heart failure / organ failure to possible full recovery. Dr. Arellano also available to patient and family. Family and patient understand that decision to move forward with higher level of care is time sensitive as heart strain continues and worsens w/o intervention.
[2019-12-10 14:02] LABS: Bilirubin Urine UA NEGATIVE (NEGATIVE); Color Urine UA YELLOW; Glucose Urine UA NEGATIVE (Negative); Ketones Urine UA TRACE (NEGATIVE); Leukocyte Esterase Urine UA TRACE (NEGATIVE); Nitrite Urine UA NEGATIVE (Negative); Occult Blood Urine UA 3+ (Negative); Protein Urine UA 1+ (Negative); Specific Gravity Urine UA <=1.005 (1.000-1.035); Urobilinogen Urine UA 0.2 E.U./dL (0.2)
[2019-12-10] MEDS: MORPHINE 4 MG/ML INJ IV (14:04)
[2019-12-10] MEDS: ONDANSETRON 4 MG/2 ML INJ IV (14:05)
[2019-12-10 14:06] LABS: Appearance Urine UA Slightly Cloudy; pH Urine UA 5.5 (4.5-8.0)
[2019-12-10 14:11] LABS: Bacteria Urine Few (2-10); Culture Indicated Urine Specimen Cultured; RBC Urine 30-100/HPF (0-5/HPF); Squamous Epithelial Cell Urine 1-5 /HPF (0-5/HPF); WBC Urine 5-10/HPF (0-5/HPF)
--- NOTE | 2019-12-10 14:40 | PC.NURSE ---
Pt signed new POLST: DNR / Limited intervention.
[2019-12-10 15:27] LABS: COVID19 -Nasal RAPID Negative (Negative)
--- NOTE | 2019-12-10 16:40 | PC.NURSE ---
Negative Covid result called to transfer center.
== END 2019-12-10 15:23 | disposition short-term general hospital (02) ==
PROVIDERS: Emergency Provider Emergency Medicine
DX: I26.02 Saddle embolus of pulmonary artery with acute cor pulmonale (principal); I26.99 Other pulmonary embolism without acute cor pulmonale; R06.82 Tachypnea, not elsewhere classified; Z87.09 Personal history of other diseases of the respiratory system; K44.9 Diaphragmatic hernia without obstruction or gangrene; R79.89 Other specified abnormal findings of blood chemistry
CPT/HCPCS: 36415; 36600; 51701; 71046; 71275; 74176; 80053; 81001; 82550; 82805; 83605; 83880; 84484; 85025; 85379; 87040; 87086; 87635; 93005; 94640; 96361; 96365; 96366; 96375; 99285; J1644; J2270; J2405; J2930; J7613; Q9967

== ENCOUNTER → 2019-12-19 14:46 | Outpatient (CLI) | payer MEDICARE, OTHER, SELFPAY ==
[2019-12-17 13:48] VITALS: BMI 29.4
== END ==
PROVIDERS: Visit Provider Specialist
DX: N39.0 Urinary tract infection, site not specified (principal); N20.0 Calculus of kidney; N95.2 Postmenopausal atrophic vaginitis; Z87.440 Personal history of urinary (tract) infections
CPT/HCPCS: 87086; 99215

== ENCOUNTER → 2020-01-27 13:03 | Outpatient (CLI) | payer MEDICARE, OTHER, SELFPAY ==
[2019-12-17 13:48] VITALS: BMI 29.4
--- NOTE | 2020-01-27 13:05 | DI.RAD.S_ITS ---
PROCEDURE: XR KUB INDICATIONS: kidney stones TECHNIQUE: One view of the abdomen acquired. COMPARISON: None. FINDINGS: Surgical changes and devices: Right ureteral stent. Right nephrolithiasis up to 1 cm radiographically noted Large amount of stool is noted. Spondylosis and dextroscoliosis .. IMPRESSION: Status post placement of right ureteral stent. Right nephrolithiasis as above. Dictated by: Ishan Michel M.D. on 01/27/2020 at 14:43 Approved by: Ishan Michel M.D. on 01/27/2020 at 14:45
[2020-01-27 14:40] LABS: Appearance Urine UA CLOUDY; Bilirubin Urine UA 2+ (NEGATIVE); Color Urine UA RED; Glucose Urine UA TRACE g/dL (Negative); Ketones Urine UA TRACE (NEGATIVE); Leukocyte Esterase Urine UA 2+ (NEGATIVE); Nitrite Urine UA POSITIVE (Negative); Occult Blood Urine UA 3+ (Negative); Protein Urine UA 3+ (Negative); Specific Gravity Urine UA 1.015 (1.000-1.035)
[2020-01-27 14:41] LABS: pH Urine UA 6.5 (4.5-8.0)
[2020-01-27 14:56] LABS: Ictotest Urine Negative (Negative)
[2020-01-27 14:57] LABS: Bacteria Urine Few (2-10); Culture Indicated Urine Specimen Cultured; RBC Urine >100/HPF (0-5/HPF); Squamous Epithelial Cell Urine 1-5 /HPF (0-5/HPF); Transitional Epi Cells Urine 1-5/HPF (0-5/HPF); WBC Urine 10-30/HPF (0-5/HPF)
== END ==
PROVIDERS: Referring Provider Specialist; Visit Provider Specialist
DX: N20.0 Calculus of kidney (principal); N39.0 Urinary tract infection, site not specified; Z96.0 Presence of urogenital implants
CPT/HCPCS: 74018; 81003; 81015; 87077; 87086; 87186

== ENCOUNTER → 2020-02-05 11:31 | Outpatient (CLI) | payer MEDICARE, OTHER, SELFPAY ==
[2019-12-17 13:48] VITALS: BMI 29.4
--- NOTE | 2020-02-05 11:32 | DI.RAD.S_ITS ---
PROCEDURE: XR KUB INDICATIONS: Kidney stone TECHNIQUE: One view of the abdomen acquired. COMPARISON: [facility], , XR KUB, 01/27/2020, 12:56. FINDINGS: Surgical changes and devices: Right ureteral stent Bowel: Large amount of stool seen throughout the colon without definite transition point. Soft tissues: No suspicious abdominal calcifications although evaluation suboptimal due to large amount of stool projecting over the kidneys. Visualized solid organ contours appear normal in size. Bones: Scoliosis and spondylitic changes. Mild bilateral hip joint degeneration. IMPRESSION: Status post placement of right ureteral stent Dictated by: Ishan Michel M.D. on 02/05/2020 at 13:15 Approved by: Ishan Michel M.D. on 02/05/2020 at 13:17
== END ==
PROVIDERS: Referring Provider Specialist; Visit Provider Specialist
DX: N20.0 Calculus of kidney (principal); M16.0 Bilateral primary osteoarthritis of hip; Z96.0 Presence of urogenital implants
CPT/HCPCS: 74018

== ENCOUNTER → 2020-03-09 12:35 | Outpatient (CLI) | payer MEDICARE, OTHER, SELFPAY ==
[2019-12-17 13:48] VITALS: BMI 29.4
[2020-03-10 10:32] LABS: Appearance Urine UA CLOUDY; Bilirubin Urine UA NEGATIVE (NEGATIVE); Color Urine UA BROWN; Glucose Urine UA TRACE g/dL (Negative); Ketones Urine UA NEGATIVE (NEGATIVE); Leukocyte Esterase Urine UA 1+ (NEGATIVE); Nitrite Urine UA NEGATIVE (Negative); Occult Blood Urine UA 3+ (Negative); Protein Urine UA 2+ (Negative); Urobilinogen Urine UA 0.2 E.U./dL (0.2)
[2020-03-10 10:33] LABS: pH Urine UA 5.5 (4.5-8.0)
[2020-03-10 10:39] LABS: Amorphous Sediment Urine 1+; Bacteria Urine Occasional (0-1); Culture Indicated Urine Specimen Cultured; RBC Urine >100/HPF (0-5/HPF); Squamous Epithelial Cell Urine 1-5 /HPF (0-5/HPF); WBC Urine 1-5/HPF (0-5/HPF)
== END ==
PROVIDERS: PCP Family Medicine; Referring Provider Specialist; Visit Provider Specialist
DX: N39.0 Urinary tract infection, site not specified (principal)
CPT/HCPCS: 81003; 81015; 87077; 87086; 87186

== ENCOUNTER → 2020-03-10 10:41 | Outpatient (CLI) | payer MEDICARE, OTHER, SELFPAY ==
[2019-12-17 13:48] VITALS: BMI 29.4
[2020-03-10 12:52] LABS: COVID19 -Nasal RAPID Negative (Negative)
== END ==
PROVIDERS: PCP Family Medicine; Visit Provider Physician Assistant
DX: Z01.812 Encounter for preprocedural laboratory examination (principal)
CPT/HCPCS: 87635

== ENCOUNTER 2020-03-13 09:09 | Day surgery (SDC) | payer MEDICARE, OTHER, SELFPAY ==
[2019-12-17 13:48] VITALS: BMI 29.4
[2020-03-09 12:20] VITALS: BMI 29.0
[2020-03-13] VITALS (16 sets, daily range): BP systolic 99–150; BP diastolic 51–82; PULSE 72–99; RESP 10–24; TEMP 36.4–37.8; O2SAT 81–100; BMI 29.0
--- NOTE | 2020-03-13 | DI.RAD.S_ITS ---
P my ROCEDURE: XR ABDOMEN 1V INDICATIONS: RIGHT STENT PLACEMENT TECHNIQUE: One view of the abdomen acquired. COMPARISON: [facility], CR, XR ABDOMEN 1V, 11/27/2019, 19:22. FINDINGS: Spot fluoroscopic image demonstrating proximal right ureteral stent. Dictated by: Ishan Michel M.D. on 03/13/2020 at 17:17 Approved by: Ishan Michel M.D. on 03/13/2020 at 17:18
[2020-03-13] MEDS: LACTATED RINGERS 1,000 ML 42 ML IV ×2 (09:51→12:42)
--- NOTE | 2020-03-13 10:54 | PM.PREOP ---
Pre-operative Note Interval Note History & Physical reviewed/Exam performed by Physician: Yes Changes to H&P: No
[2020-03-13] MEDS: VANCOMYCIN 1,000 MG/200 ML PIGGYBACK 200 MG IV (11:14)
--- NOTE | 2020-03-13 11:43 | SUR.OPER ---
Lithotomy on padded OR bed, head on pillow, arms secured on padded arm boards at <90 degrees abduction. Legs secured in padded yellow fins stirrups.
[2020-03-13] MEDS: CLINDAMYCIN 900 MG/50 ML PIGGYBACK 50 MG IV (11:55)
[2020-03-13] MEDS: IOPAMIDOL 15 ML VIAL INJ (12:26)
--- NOTE | 2020-03-13 13:16 | SUR.OPER ---
Laser power 9.73kg per rep, Myles aFrfan.
--- NOTE | 2020-03-13 13:30 | PM.OP.1 ---
Operative Date/Time/Diagnoses Date of procedure: 03/13/20 Time of procedure: 13:30 Pre-op diagnosis: 1. Left nephrolithiasis 2. Retained right ureteral stent 3. History of UTI/urosepsis. Post-op diagnosis: same Procedure & Clinicians Procedure: 1. Cystoscopy/right ureteroscopic intrarenal laser lithotripsy. 2. Cystoscopy/right ureteral stent exchange (6 Luxembourger by 22-32 cm multi-length). Same procedure as scheduled: Yes Indications: 1. Right nephrolithiasis. 2. Retained right ureteral stent. 3. History of UTI/urosepsis. Surgeon: Bowen Rios Click Yes if Unassisted: Yes Anesthesia Type: General Operative Notes Findings: There are 2 irregular calculi located in a mid and in the inferior right renal calyx. Closure Type: not applicable Specimen(s): none sent Applied: other (Six Luxembourger by 22-32 cm multi-length stent) Estimated Blood Loss (mL): 0 Blood products transfused: none Tourniquet time (min): 0 Procedure in detail: Patient was positioned supine was administered general anesthesia. She was then repositioned semi lithotomy and the lower abdomen, genitalia, and perineum were prepped and draped in sterile fashion. A 22 Luxembourger panendoscope was then passed lower urinary tract and using the foreign body graspers the indwelling stent was engaged at the distal tip and brought out to the perineum. A 0.35 hybrid guidewire was then advanced through the lumen of the stent under fluoroscopic guidance. The old stent was backloaded off the wire and discarded. Next the CIS flexible ureteral scope was advanced over the wire under fluoroscopic guidance and the tip was positioned in the right intrarenal collecting system. One of several intraoperative right pyelogram was then performed for localization and orientation. The stones were readily located identified. A 200 micron laser fiber was then selected. All operating room personnel and patient were fitted with laser safety eyewear. Laser lithotripsy was then commenced with excellent subsequent stone stone fragmentation. At completion there were innumerable tiny fragmented pieces of calculus most of which were located and a mildly dilated upper pole major calyx. The laser fiber was removed and the ureteral stent was it replaced the flexible ureteral scope was then backloaded off the wire and set aside. The 22 Luxembourger panendoscope was then front loaded on the guidewire. A 6 Luxembourger by 22-32 cm multi-length stent was then selected. It was then advanced over the guidewire under direct and fluoroscopic guidance. A RETRIEVAL LINE WAS LEFT ATTACHED. The bladder was then drained completely and all instrumentation was removed. The patient was then repositioned in supine, awakened, and transferred to recovery in stable condition. Complications: none Post-operative Condition: stable Disposition: PACU Plan for aftercare: Discharge home
[2020-03-13] MEDS: MEPERIDINE 50 MG/ML INJ 25 MG IV (13:57)
[2020-03-13] MEDS: FUROSEMIDE 20 MG/2 ML VIAL IV (14:16)
[2020-03-13] MEDS: OXYCODONE/ACETAMINOPHEN 5/325 TABLET 1 TAB PO (15:06)
--- NOTE | 2020-03-13 15:43 | SUR.PHASEII ---
Urine strained. Sediment sent to lab for stone analysis. Lab at bedside drawing blood cultures.
--- NOTE | 2020-03-13 15:56 | SUR.PHASEI ---
Pt arrived from PACU shivering. Warm blankets and bear hugger applied, no response. Spoke with Dr Bonilla and order for 25mg demerol obtained. This also did not change shivers. Pt stated she was cold, temp was around 98. She desatted on RA and had to have NC with up to 6L O2 applied. Able to wean off after 10 min but then had to put back on after about 15min. able to leave on 2L O2 and then wean off prior to transfering to phase 2. Had to check temp orally as she was under so many blankets temporal not accurate. Pt given 20 mg lasix and placed head up on left side. She did have to urinate and 400 ml bloody urine out, strained but no stone retained in strainer. Report given to Yue SCHULTZ and pt into phase 2. Denied pain in phase I, at transfer to phase 2 stated she had pain and had to urinate, pt was able to urinate and then she received pain pill in phase 2.
--- NOTE | 2020-03-13 16:55 | SUR.PHASEII ---
1530 - Patient remains shaky and cold. Remains afebrile. Medicated for pain per orders and notified Dr. Rios of continued shaking and status. Received order for blood cultures and states that patient may discharge home if hemodynamically stable.
--- NOTE | 2020-03-13 17:05 | SUR.PHASEII ---
As previously documented, Dr Rios at bedside to see pt. VS addressed. Orders for pt to be discharged. Instructions for straining urine verbalized by pt. Pt states that she is feeling better and wishes to go home. Pt's friend, Meghan, called to pharmacy picking technician pt. She states that she is staying overnight with the pt. Pt discharged at 1704.
== END 2020-03-13 17:04 | disposition home or self-care (01) ==
PROVIDERS: PCP Family Medicine; Referring Provider Family Medicine; Visit Provider Specialist
PROC: (CPT 52356; principal; 2020-03-13 10:30)
DX: N20.0 Calculus of kidney (principal); Z87.440 Personal history of urinary (tract) infections; Z79.01 Long term (current) use of anticoagulants; Z86.711 Personal history of pulmonary embolism; G47.33 Obstructive sleep apnea (adult) (pediatric); J45.909 Unspecified asthma, uncomplicated; I10 Essential (primary) hypertension; K21.9 Gastro-esophageal reflux disease without esophagitis; I25.2 Old myocardial infarction
CPT/HCPCS: 52356; 36415; 74018; 76000; 82365; 87040; J1100; J1940; J2175; J2405; J2704; J3010

== ENCOUNTER → 2020-03-17 14:25 | Outpatient (CLI) | payer MEDICARE, OTHER, SELFPAY ==
[2019-12-17 13:48] VITALS: BMI 29.4
--- NOTE | 2020-03-17 14:28 | DI.RAD.S_ITS ---
PROCEDURE: XR KUB INDICATIONS: uti TECHNIQUE: One view of the abdomen acquired. COMPARISON: [facility], CR, XR ABDOMEN 1V, 03/13/2020, 13:16. [facility], CT, CT ABDOMEN PELVIS WO CON, 12/10/2019, 10:45. [facility], CR, XR KUB, 01/27/2020, 12:56. [facility], CR, XR KUB, 02/05/2020, 11:21. FINDINGS: Surgical changes and devices: None. Bowel: Bowel gas pattern is normal. There is a large amount of stool in colon. Soft tissues: There is a right ureteral stent. There are calcifications in the pelvis, most likely pelvic phleboliths. Visualized solid organ contours appear normal in size. Bones: No suspicious bony lesions. IMPRESSION: 1. Stable appearance of the right ureteral stent. No definitive renal stones or ureteral stones are identified. Small stones could be obscured by overlapping stool contents. 2. Large amount of stool in colon consistent with constipation/fecal impaction. Dictated by: Calli Watson M.D. on 03/17/2020 at 16:33 Approved by: Calli Watson M.D. on 03/17/2020 at 16:40
== END ==
PROVIDERS: PCP Family Medicine; Referring Provider Specialist; Visit Provider Specialist
DX: N39.0 Urinary tract infection, site not specified (principal); Z96.0 Presence of urogenital implants
CPT/HCPCS: 74018

== ENCOUNTER → 2020-03-18 15:48 | Outpatient (CLI) | payer MEDICARE, OTHER, SELFPAY ==
[2019-12-17 13:48] VITALS: BMI 29.4
[2020-04-01 14:56] LABS: Size 1X1; Stone Analysis Source NOT PROVIDED
[2020-04-01 14:58] LABS: Ca oxalate dihydrate 30; Hydroxyapatite 20
[2020-04-01 14:59] LABS: Ca oxalate monohydr 50
== END ==
PROVIDERS: PCP Family Medicine; Visit Provider Specialist
DX: N20.0 Calculus of kidney (principal)
CPT/HCPCS: 82365

== ENCOUNTER 2020-07-11 12:54 | Observation (INO) | payer MEDICARE, OTHER, SELFPAY ==
[2020-03-18 13:47] VITALS: BMI 29.4
[2020-07-11] VITALS (18 sets, daily range): BP systolic 133–162; BP diastolic 63–87; PULSE 76–87; RESP 16–23; TEMP 36.4–37; O2SAT 93–98; BMI 29.0; BMI 29.7
--- NOTE | 2020-07-11 13:03 | ED.ABDPAIN ---
HPI - Abdominal Pain General Chief Complaint: Chest Pain Stated Complaint: kidney pain/aches/leg pain/hx of blood clots Time Seen by Provider: 07/11/20 12:58 Related Data Home Medications Medication Instructions Recorded Confirmed pantoprazole 40 mg tablet,delayed 40 mg PO DAILY 09/06/19 03/13/20 release Qvar RediHaler 2 inh INHALATION BID 12/10/19 03/13/20 amlodipine 10 mg PO DAILY 12/10/19 03/13/20 atorvastatin 20 mg PO BEDTIME 12/10/19 03/13/20 polyethylene glycol 3350 17 g PO DAILY 12/10/19 03/09/20 apixaban 5 mg tablet 5 mg PO BID 12/19/19 03/13/20 duloxetine 60 mg PO DAILY 03/13/20 03/13/20 enoxaparin 80 mg SUBCUT BID 03/13/20 03/13/20 meloxicam 15 mg PO DAILY 03/13/20 03/13/20 Previous Rx's Medication Instructions Recorded estradiol 1 gram VAG DAILY #42.5 gram 02/24/20 oxycodone 5 mg PO Q4H PRN #14 tab 03/13/20 sulfamethoxazole-trimethoprim 1 tab PO BID #30 tab 03/13/20 [Bactrim] nitrofurantoin 100 mg PO .qhs #60 cap 03/16/20 monohydrate/macrocrystals 100 mg capsule Allergies Allergy/AdvReac Type Severity Reaction Status Date / Time Penicillins Allergy Unknown UNK Verified 07/11/20 13:05 procaine [From Novocain] Allergy Unknown JITTERS Verified 07/11/20 13:05 Patient History Medical History (Updated 03/09/20 @ 12:33 by Hannah Rahman RN) Afib Ankle fracture, left Asthma COPD (chronic obstructive pulmonary disease) Depression Fibromyalgia GERD (gastroesophageal reflux disease) History of recent hospitalization History of UTI History of UTI Hyperlipidemia Hypertension Nephrolithiasis Nephrolithiasis NSTEMI (non-ST elevated myocardial infarction) Osteoarthritis Postmenopausal atrophic vaginitis Postmenopausal atrophic vaginitis Pulmonary embolism Thrombus (02/21/20) UTI (urinary tract infection) Surgical History (Updated 03/09/20 @ 12:38 by Hannah Rahman RN) History of cataract removal with insertion of prosthetic lens History of left inguinal hernia repair History of tonsillectomy Hx of cystoscopy (11/27/19) Family History Mother Heart failure Father Heart attack Brother Heart attack Social History household members: none Smoking Status: Never smoker alcohol intake: never Smoking Status: Never smoker Substance Use Type: does not use Discharge Plan Departure Prescriptions: No Action pantoprazole 40 mg tablet,delayed release (DR/EC) 40 mg PO DAILY RF: 0 nitrofurantoin monohyd/m-cryst [Macrobid] 100 mg capsule 100 mg PO .qhs Qty: 60 RF: 0 meloxicam 15 mg tablet 15 mg PO DAILY RF: 0 duloxetine 60 mg capsule,delayed release(DR/EC) 60 mg PO DAILY RF: 0 enoxaparin 80 mg/0.8 mL syringe 80 mg SUBCUT BID RF: 0 sulfamethoxazole-trimethoprim [Bactrim] 400-80 mg tablet 1 tab PO BID Qty: 30 RF: 0 oxycodone 5 mg tablet 5 mg PO Q4H PRN (Reason: pain) Qty: 14 RF: 0 polyethylene glycol 3350 17 gram Powder In Packet 17 g PO DAILY RF: 0 Qvar RediHaler 40 mcg/actuation HFA aerosol breath activated 2 inh INHALATION BID RF: 0 atorvastatin 20 mg Tablet 20 mg PO BEDTIME RF: 0 amlodipine 5 mg Tablet 10 mg PO DAILY RF: 0 apixaban 5 mg tablet 5 mg PO BID RF: 0 estradiol 0.01 % (0.1 mg/gram) cream 1 gram VAG DAILY Qty: 42.5 RF: 3
--- NOTE | 2020-07-11 13:19 | PC.NURSE ---
Pt has a hx of saddle PE, is c/o bilat calf pain, and bilat kidney pain.
--- NOTE | 2020-07-11 13:22 | ED.SOB ---
HPI - SOB/Dyspnea General Chief Complaint: Chest Pain Stated Complaint: kidney pain/aches/leg pain/hx of blood clots Time Seen by Provider: 07/11/20 12:58 Source: patient Mode of arrival: Wheelchair Limitations: no limitations History of Present Illness HPI Narrative: Patient is a marla 75-year-old female with history of septic kidney stone, saddle emboli presenting today with increasing shortness of breath. She was diagnosed with a saddle embolism on December 09 she was emergently transferred to [facility] were she was treated and placed on Eliquis. She remains on Eliquis and as far she knows she has not missed a dose. She states that she is becoming increasingly weak and short of breath. She has 18 stairs to get into her house typically she can go up and down the multiple times a day however as gradually decreased and she can only go once. With any exertion she has some chest discomfort and shortness of breath. She is having some mild chest discomfort but does not really describe it as pain certainly is not radiating. She states previously She she was walking 2-3 miles daily without any issue however over the last few days she has had significant decline. She denies any fever chills nausea or vomiting. She has chronic right flank pain from where her kidney stone was. She denies any fever or chills. Related Data Home Medications Medication Instructions Recorded Confirmed pantoprazole 40 mg tablet,delayed 40 mg PO DAILY 09/06/19 07/11/20 release Qvar RediHaler 2 inh INHALATION BID 12/10/19 07/11/20 amlodipine 10 mg PO DAILY 12/10/19 07/11/20 apixaban 5 mg tablet 5 mg PO BID 12/19/19 07/11/20 duloxetine 60 mg PO DAILY 03/13/20 07/11/20 albuterol sulfate 2 puff INHALATION Q6H PRN 07/11/20 07/11/20 rosuvastatin 10 mg PO DAILY 07/11/20 07/11/20 Allergies Allergy/AdvReac Type Severity Reaction Status Date / Time Penicillins Allergy Unknown UNK Verified 07/11/20 13:16 procaine [From Novocain] Allergy Unknown JITTERS Verified 07/11/20 13:16 Review of Systems Review of Systems ROS Unobtainable: All systems reviewed & are unremarkable except as noted in HPI and below Constitutional Constitutional: Denies chills, Denies fever(s), Reports lethargy and Reports weakness ENT Ears, Nose, Mouth, and Throat: Denies neck pain Cardiovascular Cardiovascular: Reports as per HPI, Denies leg edema and Reports dyspnea on exertion Respiratory Respiratory: Reports dyspnea on exertion Gastrointestinal Gastrointestinal: Denies abdominal pain, Denies change in bowel habits, Denies diarrhea, Denies nausea and Denies vomiting Genitourinary Genitourinary: Reports as per HPI Genitourinary: Reports as per HPI Musculoskeletal Musculoskeletal: Reports myalgias, Denies loss of height and Denies neck pain Integumentary/Breasts Skin/Breast: Denies pruritus, Denies erythema, Denies rash and Denies wounds Neurologic Neurologic: Reports weakness Patient History Medical History (Updated 07/11/20 @ 18:26 by Angi Phillip DO) Afib Ankle fracture, left Asthma COPD (chronic obstructive pulmonary disease) Depression Fibromyalgia GERD (gastroesophageal reflux disease) History of recent hospitalization History of UTI History of UTI Hyperlipidemia Hypertension Nephrolithiasis Nephrolithiasis NSTEMI (non-ST elevated myocardial infarction) Osteoarthritis Postmenopausal atrophic vaginitis Postmenopausal atrophic vaginitis Pulmonary embolism Thrombus (02/21/20) UTI (urinary tract infection) Surgical History (Updated 03/09/20 @ 12:38 by Hannah Rahman RN) History of cataract removal with insertion of prosthetic lens History of left inguinal hernia repair History of tonsillectomy Hx of cystoscopy (11/27/19) Family History Mother Heart failure Father Heart attack Brother Heart attack Social History household members: none Smoking Status: Never smoker alcohol intake: never Smoking Status: Never smoker alcohol intake frequency: holidays/special occasions only Substance Use Type: does not use Exam Initial Vital Signs Initial Vital Signs: Vital Signs Temperature 98.1 F 07/11/20 13:00 Pulse Rate 87 07/11/20 13:00 Respiratory Rate 19 07/11/20 13:00 Blood Pressure 153/75 H 07/11/20 13:00 Pulse Oximetry 96 07/11/20 13:00 GENERAL: Alert pleasant slightly weak 75-year-old female and in no acute distress. HEENT: Head atraumatic,EOMI, pupils reactive, face symmetric, moist mucous membranes CARDIOVASCULAR: Regular rate and rhythm without murmurs, rubs or gallops. RESPIRATORY: Breath sounds equal bilaterally, no wheezes rales or rhonchi. ABDOMEN: Soft, nontender. Normoactive bowel sounds all 4 quadrants. No guarding or rebound. : No CVA tenderness EXTREMITIES: Normal range of motion, no clubbing or edema. Neurovascularly intact NEUROLOGICAL: Alert and oriented x4.Normal gait and speech. SKIN: Warm, dry, no laceration, no petechiae, no rashes or lesions. Course Orders Ordered: ED Orders 07/11/20 13:11 Complete Blood Count AUTO DIFF Stat Comprehensive Metabolic Panel Stat Lactate (Lactic Acid) Stat NT-proBNP (BNP-Adult 18+) Stat Partial Thromboplastin Time Stat Procalcitonin Stat Prothrombin Time INR Stat Troponin & CK Cardiac Panel Stat 07/11/20 13:27 CT angio chest PE protocol Stat XR chest 1V Stat 07/11/20 13:42 Urinalysis and Microscopic Stat 07/11/20 13:50 Blood Culture Stat 07/11/20 17:03 COVID19 Stat 07/12/20 05:00 Hemoglobin and Hematocrit DAILY Acetaminophen (Acetaminophen 325 Mg Tablet) 650 mg PO Q6HR PRN PRN Reason: Fever/Mild Pain (1-3) Al Hydrox/Mg Hydrox/Simethicone (Mag Hydrox/Alum/Simeth 30 Ml Udc) 30 ml PO Q6HR PRN PRN Reason: Dyspepsia Docusate Sodium (Docusate 100 Mg Capsule) 100 mg PO BID JANIE Heparin Sodium/Dextrose (Heparin Drip) 25,000 unit in 500 mls @ 24 mls/hr IV CONT JANIE; Protocol Last Admin: 07/11/20 16:37 Dose: 1,200 units/hr, 24 mls/hr Documented by: AUPDIKE Magnesium Hydroxide (Magnesium Hydroxide 30 Ml Udc) 30 ml PO DAILY PRN PRN Reason: Constipation Ondansetron HCl (Ondansetron 4 Mg/2 Ml Inj) 4 mg IV Q8HR PRN PRN Reason: Nausea And Vomiting Discontinued Medications Heparin Sodium (Porcine) (Heparin 5,000 Unit/Ml Vial) 6,500 unit 80 unit/kg (6500 unit) IV NOW ONE Stop: 07/11/20 16:28 Last Admin: 07/11/20 16:37 Dose: 6,500 unit Documented by: AUPDJOHANNY Vital Signs Vital signs: Vital Signs - 8 hr 07/11/20 13:00 07/11/20 13:19 07/11/20 13:30 Temperature 98.1 F Pulse Rate 87 78 76 Respiratory Rate 19 21 Blood Pressure 153/75 H Pulse Oximetry 96 96 96 07/11/20 13:31 07/11/20 14:09 07/11/20 14:30 Temperature Pulse Rate 77 79 82 Respiratory Rate 23 21 Blood Pressure 141/79 H Pulse Oximetry 96 96 07/11/20 15:00 07/11/20 15:11 07/11/20 15:30 Temperature Pulse Rate 79 81 81 Respiratory Rate 22 23 Blood Pressure 135/78 Pulse Oximetry 96 96 96 07/11/20 16:00 07/11/20 16:30 Temperature Pulse Rate 80 79 Respiratory Rate 23 18 Blood Pressure Pulse Oximetry 97 96 MDM - SOB/Dyspnea Lab Data Attestation: I reviewed the patient's lab results. Result diagrams: 07/11/20 13:11 07/11/20 13:11 Labs: Lab Results 07/11/20 07/11/20 07/11/20 Range/Units 13:11 13:11 13:11 WBC 9.5 (4.5-11.0) X10^3/uL RBC 5.00 (4.0-5.2) X10^6/uL Hgb 12.3 (12.0-16.0) g/dL Hct 38.5 (36-46) % MCV 77.0 L (80-100) fL MCH 24.6 L (26-34) PG MCHC 32.0 (30-36) % RDW 17.0 H (11.6-14.8) % Plt Count 415 H (150-400) X10^3/uL Neut % (Auto) 67.4 (50-75) % Lymph % (Auto) 23.9 L (25-40) % [place] % (Auto) 6.5 (3-14) % Eos % (Auto) 1.1 L (2-4) % Baso % (Auto) 1.1 (0-2) % Neut # (Auto) 6400 (0141-9029) /uL Lymph # (Auto) 2300 (2207-1167) /uL [place] # (Auto) 600 (0-900) /uL Eos # (Auto) 100 (0-450) /uL Baso # (Auto) 100 (0-100) /uL PT 12.6 (10.1-12.7) SECONDS INR 1.1 (0.9-1.3) APTT (26.4-36.2) SECONDS Sodium 138 (137-145) mmol/L Potassium 4.2 (3.4-5.1) mmol/L Chloride 105 (98-107) mmol/L Carbon Dioxide 25 (22-32) mmol/L BUN 23 H (7-17) mg/dL Creatinine 1.02 (0.52-1.04) mg/dL Estimated GFR 52.8 L (>60) mL/min BUN/Creatinine Ratio 22.5 H (6-22) Glucose 121 H (80-110) mg/dL Lactate (0.7-2.1) mmol/L Calcium 10.3 H (8.4-10.2) mg/dL Total Bilirubin 0.4 (0.2-1.3) mg/dL AST 23 (14-36) IU/L ALT 17 (<35) IU/L Alkaline Phosphatase 110 (38-126) U/L Total Creatine Kinase 24 L (30-135) U/L CK-MB (CK-2) TNP CK-MB (CK-2) Rel Index TNP Troponin I < 0.012 (0.01-0.034) ng/mL NT-Pro-B Natriuret Pep 66 (<450) pg/mL Total Protein 7.4 (6.3-8.2) g/dL Albumin 4.4 (3.5-5.0) g/dL Globulin 3.0 (1.7-4.1) g/dL Albumin/Globulin Ratio 1.5 (1.0-2.8) Procalcitonin 0.06 (<0.5) ng/mL Urine Color Urine Appearance Urine pH (4.5-8.0) Ur Specific [place] (1.000-1.035) Urine Protein (Negative) Urine Glucose (UA) (Negative) g/dL Urine Ketones (NEGATIVE) Urine Occult Blood (Negative) Urine Nitrate (Negative) Urine Bilirubin (NEGATIVE) Urine Urobilinogen (0.2) E.U./dL Ur Leukocyte Esterase (NEGATIVE) Urine RBC (0-5/HPF) Urine WBC (0-5/HPF) Ur Squamous Epith Cells (0-5/HPF) Ur Renal Epithelial Cell (0-1/HPF) Urine Bacteria (None) Hyaline Casts (None) Ur Culture Indicated? 07/11/20 07/11/20 07/11/20 Range/Units 13:11 13:11 13:42 WBC (4.5-11.0) X10^3/uL RBC (4.0-5.2) X10^6/uL Hgb (12.0-16.0) g/dL Hct (36-46) % MCV (80-100) fL MCH (26-34) PG MCHC (30-36) % RDW (11.6-14.8) % Plt Count (150-400) X10^3/uL Neut % (Auto) (50-75) % Lymph % (Auto) (25-40) % [place] % (Auto) (3-14) % Eos % (Auto) (2-4) % Baso % (Auto) (0-2) % Neut # (Auto) (6154-6724) /uL Lymph # (Auto) (6408-9860) /uL [place] # (Auto) (0-900) /uL Eos # (Auto) (0-450) /uL Baso # (Auto) (0-100) /uL PT (10.1-12.7) SECONDS INR (0.9-1.3) APTT 35 (26.4-36.2) SECONDS Sodium (137-145) mmol/L Potassium (3.4-5.1) mmol/L Chloride (98-107) mmol/L Carbon Dioxide (22-32) mmol/L BUN (7-17) mg/dL Creatinine (0.52-1.04) mg/dL Estimated GFR (>60) mL/min BUN/Creatinine Ratio (6-22) Glucose (80-110) mg/dL Lactate 1.4 (0.7-2.1) mmol/L Calcium (8.4-10.2) mg/dL Total Bilirubin (0.2-1.3) mg/dL AST (14-36) IU/L ALT (<35) IU/L Alkaline Phosphatase (38-126) U/L Total Creatine Kinase (30-135) U/L CK-MB (CK-2) CK-MB (CK-2) Rel Index Troponin I (0.01-0.034) ng/mL NT-Pro-B Natriuret Pep (<450) pg/mL Total Protein (6.3-8.2) g/dL Albumin (3.5-5.0) g/dL Globulin (1.7-4.1) g/dL Albumin/Globulin Ratio (1.0-2.8) Procalcitonin (<0.5) ng/mL Urine Color Yellow Urine Appearance Clear Urine pH 5.0 (4.5-8.0) Ur Specific [place] 1.020 (1.000-1.035) Urine Protein Negative (Negative) Urine Glucose (UA) Negative (Negative) g/dL Urine Ketones Negative (NEGATIVE) Urine Occult Blood Trace-lysed (Negative) Urine Nitrate Negative (Negative) Urine Bilirubin Negative (NEGATIVE) Urine Urobilinogen 0.2 (0.2) E.U./dL Ur Leukocyte Esterase 2+ H (NEGATIVE) Urine RBC 1-5/hpf D (0-5/HPF) Urine WBC 5-10/hpf H (0-5/HPF) Ur Squamous Epith Cells 5-10 /hpf H (0-5/HPF) Ur Renal Epithelial Cell 5-10/hpf H (0-1/HPF) Urine Bacteria Many (>30) H (None) Hyaline Casts 1-5/lpf (None) Ur Culture Indicated? Cult not indicated Imaging Data CT scan - chest: Radiologist's Impression: PROCEDURE: CT ANGIO CHEST PE PROTOCOL INDICATIONS: prior saddle pe now SOB TECHNIQUE: After the administration of intravenous contrast, 2 mm thick sections acquired from the pulmonary apices to the posterior costophrenic angles. 3-dimensional maximum intensity projection (MIP) coronal and sagittal reformats were then acquired through the thorax. For radiation dose reduction, the following was used: automated exposure control, adjustment of mA and/or kV according to patient size. COMPARISON: [facility], [place], CT ANGIO CHEST PE PROTOCOL, 12/10/2019, 10:45. FINDINGS: Image quality: Excellent. Pulmonary arteries: Previously, there was extensive central pulmonary emboli with a saddle embolus and bilateral main pulmonary artery embolus and peripheral emboli. Currently, there is only focal embolus present involving the posterior basal segment of the left lower lobe. No other pulmonary emboli identified. The chronicity of this clot is uncertain. Lungs and pleura: Minimal bibasilar dependent change. No pleural effusions or pneumothorax. Central and peripheral airways are patent. Mediastinum: Heart size is normal, without pericardial effusion. Moderate coronary artery calcifications. Normal RV/LV ratio. No mediastinal or hilar adenopathy. Thoracic aorta is normal in caliber and enhancement. Esophagus is normal in caliber, without hiatal hernia. Bones and chest wall: No suspicious bony lesions. Ribs and thoracic spine appear intact throughout. Thyroid gland is unremarkable. No axillary or supraclavicular adenopathy. Abdomen: Visualized upper abdominal solid organs appear normal in the early arterial phase of enhancement. IMPRESSION: 1. Small peripheral focal pulmonary embolus, posterior basal segment of left lower lobe. The chronicity of this finding is uncertain. 2. Moderate coronary artery calcifications. Dictated by: Price Hummel M.D. on 07/11/2020 at 13:2 Chest x-ray: Radiologist's Impression: PROCEDURE: XR CHEST 1V INDICATIONS: sob TECHNIQUE: One view of the chest was acquired. COMPARISON: [facility], , XR CHEST 2V, 12/10/2019, 10:11. FINDINGS: Surgical changes and devices: None. Lungs and pleura: Lungs are clear. No pleural effusions or pneumothorax. Mediastinum: Mediastinal contours appear normal. Heart size is normal. Bones and chest wall: No suspicious bony lesions. Overlying soft tissues appear unremarkable. IMPRESSION: No evidence acute pulmonary process. Dictated by: Price Hummel M.D. on 07/11/2020 at 13:51 US - DVT: Radiologist's Impression: PROCEDURE: US PERIPH VENOUS LOW EXTREM BI INDICATIONS: PE, leg pain TECHNIQUE: Real-time imaging, as well as color and pulse Doppler interrogation, were performed of the deep veins of both legs from the inguinal ligament to the popliteal fossa. COMPARISON: None. FINDINGS: Right: The common femoral, femoral and popliteal veins are normally compressible, and free of intraluminal thrombus. Color and pulse Doppler demonstrate normal phasic intravascular flow. There is normal augmentation response to distal compression maneuver. Left: The common femoral, femoral and popliteal veins are normally compressible, and free of intraluminal thrombus. Color and pulse Doppler demonstrate normal phasic intravascular flow. There is normal augmentation response to distal compression maneuver. IMPRESSION: Negative bilateral lower extremity duplex venous ultrasound for DVT. Dictated by: Price Hummel M.D. on 07/11/2020 at 16:59 ECG Data Attestation: I personally reviewed and interpreted this ECG as follows: Prior ECG tracings: available for review Interpretation: Normal sinus rhythm rate [address] changes right bundle-branch block MDM Narrative Medical decision making narrative: Patient is found have a small left pulmonary embolism. Concern is patient has new the PE despite Eliquis. She states she has also had some bilateral calf pain. Patient actually was able to pull up a CT angio report from February which showed complete resolution of her PE. Dr. Kelly accepts patient Discharge Plan Departure Patient Disposition: Admitted as Observation Clinical Impression: Pulmonary embolism Qualifiers: Pulmonary embolism type: unspecified Chronicity: acute Acute cor pulmonale presence: unspecified Qualified Code(s): I26.99 - Other pulmonary embolism without acute cor pulmonale Admit Date/Time: 07/11/20 16:33 Admit Provider: Ole Varghese
--- NOTE | 2020-07-11 13:27 | DI.RAD.S_ITS ---
PROCEDURE: XR CHEST 1V INDICATIONS: sob TECHNIQUE: One view of the chest was acquired. COMPARISON: [facility], [place], XR CHEST 2V, 12/10/2019, 10:11. FINDINGS: Surgical changes and devices: None. Lungs and pleura: Lungs are clear. No pleural effusions or pneumothorax. Mediastinum: Mediastinal contours appear normal. Heart size is normal. Bones and chest wall: No suspicious bony lesions. Overlying soft tissues appear unremarkable. IMPRESSION: No evidence acute pulmonary process. Dictated by: Price Hummel M.D. on 07/11/2020 at 13:51 Approved by: Price Hummel M.D. on 07/11/2020 at 13:52
--- NOTE | 2020-07-11 13:27 | DI.CT.S_ITS ---
PROCEDURE: CT ANGIO CHEST PE PROTOCOL INDICATIONS: prior saddle pe now SOB TECHNIQUE: After the administration of intravenous contrast, 2 mm thick sections acquired from the pulmonary apices to the posterior costophrenic angles. 3-dimensional maximum intensity projection (MIP) coronal and sagittal reformats were then acquired through the thorax. For radiation dose reduction, the following was used: automated exposure control, adjustment of mA and/or kV according to patient size. COMPARISON: [facility], [place], CT ANGIO CHEST PE PROTOCOL, 12/10/2019, 10:45. FINDINGS: Image quality: Excellent. Pulmonary arteries: Previously, there was extensive central pulmonary emboli with a saddle embolus and bilateral main pulmonary artery embolus and peripheral emboli. Currently, there is only focal embolus present involving the posterior basal segment of the left lower lobe. No other pulmonary emboli identified. The chronicity of this clot is uncertain. Lungs and pleura: Minimal bibasilar dependent change. No pleural effusions or pneumothorax. Central and peripheral airways are patent. Mediastinum: Heart size is normal, without pericardial effusion. Moderate coronary artery calcifications. Normal RV/LV ratio. No mediastinal or hilar adenopathy. Thoracic aorta is normal in caliber and enhancement. Esophagus is normal in caliber, without hiatal hernia. Bones and chest wall: No suspicious bony lesions. Ribs and thoracic spine appear intact throughout. Thyroid gland is unremarkable. No axillary or supraclavicular adenopathy. Abdomen: Visualized upper abdominal solid organs appear normal in the early arterial phase of enhancement. IMPRESSION: 1. Small peripheral focal pulmonary embolus, posterior basal segment of left lower lobe. The chronicity of this finding is uncertain. 2. Moderate coronary artery calcifications. Dictated by: Price Hummel M.D. on 07/11/2020 at 13:23 Approved by: Price Hummel M.D. on 07/11/2020 at 13:28
[2020-07-11 13:33] LABS: Add Manual Diff / Slide Review NO; Basophils Absolute Auto 100 /uL (0-100); Basophils Percent Auto 1.1 % (0-2); Eosinophils Absolute Auto 100 /uL (0-450); Eosinophils Percent Auto 1.1 % (2-4); Hematocrit 38.5 % (36-46); Hemoglobin 12.3 g/dL (12.0-16.0); Lymphocytes Absolute Auto 2300 /uL (1100-4500); Lymphocytes Percent Auto 23.9 % (25-40); Mean Corpuscular Hemoglobin 24.6 PG (26-34); Monocytes Absolute Auto 600 /uL (0-900); Monocytes Percent Auto 6.5 % (3-14); Neutrophils Absolute Auto 6400 /uL (1500-7000); Neutrophils Percent Auto 67.4 % (50-75); Platelet Count 415 X10^3/uL (150-400); White Blood Cell Count 9.5 X10^3/uL (4.5-11.0)
[2020-07-11 13:34] LABS: INR 1.1 (0.9-1.3); Prothrombin Time 12.6 SECONDS (10.1-12.7)
[2020-07-11 13:39] LABS: Lactate (Lactic Acid) 1.4 mmol/L (0.7-2.1)
[2020-07-11 13:40] LABS: Alanine Aminotransferase 17 IU/L (<35); Albumin 4.4 g/dL (3.5-5.0); Albumin Globulin Ratio 1.5 (1.0-2.8); Alkaline Phosphatase 110 U/L (38-126); Aspartate Aminotransferase 23 IU/L (14-36); BUN Creatinine Ratio 22.5 (6-22); Bilirubin Total 0.4 mg/dL (0.2-1.3); Blood Urea Nitrogen 23 mg/dL (7-17); Calcium 10.3 mg/dL (8.4-10.2); Carbon Dioxide 25 mmol/L (22-32); Chloride 105 mmol/L (98-107); Creatine Kinase 24 U/L (30-135); Estimated Glomerular Filt Rate 52.8 mL/min (>60); Glucose 121 mg/dL (80-110); HEMOLYSIS < 15 (0-50); Potassium 4.2 mmol/L (3.4-5.1); Sodium 138 mmol/L (137-145); Total Protein 7.4 g/dL (6.3-8.2)
[2020-07-11 13:44] LABS: Appearance Urine UA CLEAR; Bilirubin Urine UA NEGATIVE (NEGATIVE); Color Urine UA YELLOW; Glucose Urine UA NEGATIVE (Negative); Ketones Urine UA NEGATIVE (NEGATIVE); Leukocyte Esterase Urine UA 2+ (NEGATIVE); Nitrite Urine UA NEGATIVE (Negative); Occult Blood Urine UA TRACE-LYSED (Negative); Protein Urine UA NEGATIVE (Negative); Urobilinogen Urine UA 0.2 E.U./dL (0.2)
[2020-07-11 13:44] LABS: PTT Partial Thromboplastin Tim 35 SECONDS (26.4-36.2)
[2020-07-11 13:53] LABS: NT-proBNP (BNP-Adult 18+) 66 pg/mL (<450); Troponin I < 0.012 ng/mL (0.01-0.034)
[2020-07-11 13:57] LABS: Procalcitonin 0.06 ng/mL (<0.5)
[2020-07-11 13:59] LABS: Bacteria Urine Many (>30); Culture Indicated Urine Cult Not Indicated; Hyaline Casts Urine 1-5/LPF; RBC Urine 1-5/HPF (0-5/HPF); Renal Epithelial Cells Urine 5-10/HPF (0-1/HPF); Squamous Epithelial Cell Urine 5-10 /HPF (0-5/HPF); WBC Urine 5-10/HPF (0-5/HPF)
[2020-07-11] MEDS: HEPARIN DRIP 25,000 UNIT/500 ML IV.SOLN 24 UNIT IV (16:37)
[2020-07-11] MEDS: HEPARIN 5,000 UNIT/ML VIAL 6500 UNIT IV (16:37)
--- NOTE | 2020-07-11 16:55 | DI.US.S_ITS ---
PROCEDURE: US PERIPH VENOUS LOW EXTREM BI INDICATIONS: PE, leg pain TECHNIQUE: Real-time imaging, as well as color and pulse Doppler interrogation, were performed of the deep veins of both legs from the inguinal ligament to the popliteal fossa. COMPARISON: None. FINDINGS: Right: The common femoral, femoral and popliteal veins are normally compressible, and free of intraluminal thrombus. Color and pulse Doppler demonstrate normal phasic intravascular flow. There is normal augmentation response to distal compression maneuver. Left: The common femoral, femoral and popliteal veins are normally compressible, and free of intraluminal thrombus. Color and pulse Doppler demonstrate normal phasic intravascular flow. There is normal augmentation response to distal compression maneuver. IMPRESSION: Negative bilateral lower extremity duplex venous ultrasound for DVT. Dictated by: Price Hummel M.D. on 07/11/2020 at 16:59 Approved by: Price Hummel M.D. on 07/11/2020 at 17:00
--- NOTE | 2020-07-11 17:08 | DI.ECHO.S_ITS ---
[facility] +---------+ : : [address] : [address] : : : : [id number] : : : : Phone: [phone] Echocardiogram Report + + :Name: EWA SIM Study Date: 07/12/2020 Height: 66 in : :[facility] ReadingLocation: Weight: 180 lb : : Gender: Female BSA: 1.9 m2 : :: 1945 Age: 75 yrs BP: 122/63 mmHg: :Reason For Study: PULMONARY EMBOLUS : :Ordering Physician: DEO, : :CINDY Performed By: Savannah Wise : :Referring: CINDY DESOUZA : + + Interpretation Summary The left ventricle appears normal in size and systolic function with an estimated ejection fraction of 55 to 60% without any focal wall motion abnormality and appears slightly smaller and more dynamic compared to the previous study. Diastolic function is likely normal with normal filling pressures. The right ventricle appears normal in size and systolic function and appears slightly smaller and more dynamic compared to the previous exam. Right ventricular systolic pressure cannot be estimated but CVP is likely around 3 mmHg, likely lower compared to the previous study. Both atria are normal in size and unchanged from the previous study. There is mild mitral regurgitation that is less prominent compared to the previous study. There is no other significant valvular abnormality. Procedure: A two-dimensional transthoracic echocardiogram with color flow and Doppler was performed. The study quality was technically adequate. Comparison is made with the echocardiogram of 11/30/2019. The patient was in sinus rhythm with heart rates between 61-75 bpm during the exam. Left Ventricle: The left ventricle appears normal in size, wall thickness, and systolic function without any focal wall motion abnormalities. The estimated left ventricular end diastolic volume is 70 mL, down from the previous 93 ml. The ejection fraction is estimated to be 55-60%. This is slightly smaller and more dynamic compared to the previous study. Diastolic parameters suggest probable normal left ventricular diastolic function and normal filling pressures. Right Ventricle: The right ventricle is normal in size and function. This is slightly smaller and slightly more dynamic compared to the previous study. Atria: Both atria are normal in size. This is unchanged compared to the previous study. There is no Doppler evidence for an interatrial shunt. Mitral Valve: There is mild mitral annular calcification. The mitral valve leaflets appear mildly thickened, but open well. There is mild mitral regurgitation. This is less prominent compared to the previous study. Aortic Valve: The aortic valve is trileaflet. The aortic valve opens well. There is no aortic valve stenosis. No aortic regurgitation is present. Tricuspid Valve: The tricuspid valve is normal in structure and function. There is trace tricuspid regurgitation. Pulmonary artery pressures cannot be estimated because of the lack of a measurable TR jet velocity but the IVC suggests a CVP of around 3 mmHg. This is likely lower compared to the previous study. Pulmonic Valve: The pulmonic valve leaflets are thin and pliable; valve motion is normal. There is trace pulmonic regurgitation. Great Vessels: The aortic root is normal size. The ascending aorta is mildly enlarged. This is unchanged compared to the previous study. The IVC is of normal diameter and collapses greater than 50% with a sniff. This suggests a low right atrial pressure of 3 mm Hg. Pericardium/ Pleura There is no pericardial effusion. There is no pleural effusion. MMode/2D Measurements & Calculations LVIDd: 4.9 cm LVOT diam: 2.0 cm LVIDs: 3.5 cm Ao root diam: 3.7 cm FS: 28.8 % asc Aorta Diam: 3.4 cm EPSS: 0.97 cm Ao Arch Diam (Prox Trans): 2.7 cm IVSd: 1.1 cm LVPWd: 0.92 cm LV hernandez. diameter/BSA (cm/m^2): 2.6 LV sys. diameter/BSA (cm/m^2): 1.8 LA A2 area: 18.8 cm2 RA long axis: 5.1 cm LA A4 area: 15.0 cm2 RA area: 13.6 cm2 LA length (vol): 5.1 cm RA vol: 30.6 ml LA vol: 46.6 ml RA : 16.0 ml/m2 LA vol index: 24.4 ml/m2 IVC diam: 2.1 cm RVD1 (basal): 2.6 cm TAPSE: 2.3 cm Doppler Measurements & Calculations Ao V2 max: 134.0 cm/sec LVOT Max Sriram: 113.5 cm/sec Ao V2 mean: 95.3 cm/sec LV V1 max P.2 mmHg Ao max P.2 mmHg LV V1 VTI: 23.3 cm Ao mean P.1 mmHg KYLIE(I,D): 2.6 cm2 Ao V2 VTI: 27.9 cm KYLIE(V,D): 2.6 cm2 sev ratio: 0.83 KYLIE indexed to BSA (cm^2/m^2): 1.3 MV E max sriram: 79.2 cm/sec PA V2 max: 73.1 cm/sec MV A max sriram: 110.1 cm/sec PA V2 mean: 44.1 cm/sec MV E/A: 0.72 PA mean P.92 mmHg Med Peak E' Sriram: 6.2 cm/sec PA pr(Accel): 29.3 mmHg E/E' med: 12.7 Lat Peak E' Sriram: 8.4 cm/sec E/E' lat: 9.4 E/e' average: 11.0 MV dec time: 0.28 sec SV(LVOT): 71.4 ml Reading Physician:11:39 AM
[2020-07-11 17:43] LABS: COVID19 -Nasal RAPID Negative (Negative)
[2020-07-11] MEDS: ACETAMINOPHEN 325 MG TABLET 650 MG PO (19:05)
--- NOTE | 2020-07-11 21:30 | DI.CT.S_ITS ---
PROCEDURE: CT HEAD/BRAIN WO CON INDICATIONS: acute onset KIM w/PE TECHNIQUE: Noncontrast 4.5 mm thick angled axial sections acquired from the foramen magnum to the vertex, with coronal and sagittal reformats. For radiation dose reduction, the following was used: automated exposure control, adjustment of mA and/or kV according to patient size. COMPARISON: [facility], CT, CT ANGIO CHEST PE PROTOCOL, 07/11/2020, 13:43. [facility], CT, CT HEAD/BRAIN WO CON, 11/27/2019, 9:29. FINDINGS: Image quality: Excellent. CSF spaces: Basal cisterns are patent. No extra-axial fluid collections. The ventricles are symmetric in size and shape. Brain: No intracranial bleeds or masses. There is cerebral volume loss for age, with resultant ventricular and sulcal prominence. There are periventricular and deep white matter chronic small vessel ischemic changes. There is intracranial internal carotid artery atherosclerosis. Skull and face: Calvarium and visualized facial bones appear intact, without suspicious lesions. Sinuses: Visualized sinuses and mastoids are clear. IMPRESSION: 1. CT head without acute intracranial abnormalities or acute calvarial fractures. 2. Age-related senescent changes and sequela of chronic small vessel ischemic disease. Dictated by: Octavio Amaya M.D. on 07/11/2020 at 22:03 Approved by: Octavio Amaya M.D. on 07/11/2020 at 22:07
[2020-07-11] MEDS: DOCUSATE 100 MG CAPSULE PO (21:39)
[2020-07-11] MEDS: levoFLOXacin 500 MG TABLET PO (21:39)
[2020-07-11 22:52] LABS: PTT Partial Thromboplastin Tim 90 SECONDS (26.4-36.2)
[2020-07-12] VITALS (12 sets, daily range): BP systolic 110–137; BP diastolic 62–84; PULSE 64–82; RESP 18–20; TEMP 36.3–37.3; O2SAT 92–97
[2020-07-12 05:38] LABS: Hematocrit 36.4 % (36-46); Hemoglobin 11.8 g/dL (12.0-16.0)
[2020-07-12 05:59] LABS: PTT Partial Thromboplastin Tim 78 SECONDS (26.4-36.2)
[2020-07-12] MEDS: ACETAMINOPHEN 325 MG TABLET 650 MG PO ×2 (06:04→12:07)
[2020-07-12] MEDS: BECLOMETHASONE 40 MCG INH 10.6 GM 2 PUFF INH ×2 (08:14→21:18)
[2020-07-12] MEDS: ROSUVASTATIN 10 MG TABLET PO (09:10)
[2020-07-12] MEDS: SODIUM CHLORIDE 0.9% FLUSH 10 ML IV ×2 (09:10→21:19)
[2020-07-12] MEDS: AMLODIPINE 5 MG TABLET 10 MG PO (09:10)
[2020-07-12] MEDS: DOCUSATE 100 MG CAPSULE PO ×2 (09:10→21:18)
[2020-07-12] MEDS: DULOXETINE 30 MG CAPSULE 60 MG PO (09:11)
[2020-07-12] MEDS: levoFLOXacin 500 MG TABLET PO (09:11)
[2020-07-12] MEDS: PANTOPRAZOLE 40 MG TABLET PO (09:25)
--- NOTE | 2020-07-12 11:23 | PC.NURSE ---
Addendum entered by Mansoor Hooper R.N. 07/12/20 13:44: Pt independent in the room. Heparin gtt stopped per orders. Tylenol of good effect. Original Note: Pt rouses easily thogh c/o of lack of sleep being in the hospital. Pt offers no other c/o. Echo done. Pt up in chair throughout the day. Some soboe, but settles when at rest.
--- NOTE | 2020-07-12 15:43 | CM.DANOTE ---
Discharge Planning/Care Management DCP: assessment: Case received, EMR reviewed. Dr. Bell is working today with pt although at this time his note is not available for review. In Team Rounds this morning he stated ECHO would be ordered and a stress test would be completed tomorrow/Monday with likely d/c to home after that. Met now with pt. She confirms she is functionally independent at baseline and usually quite active but with a sudden decline in energy level. She is up independently in the room but says that she quickly weakens and has to go back to her chair. Pt says if she is ok'd for d/c tomorrow her neighbor will be picking her up. PCP: Alejandra Palencia/Courtney Tolliver. Payer: Medicare and [employer] [facility] Admission status: OBS Pt says she is expecting Dr. Bell to return today as he was going to review some records that she has available on her phone from [facility]. Pt reports her son Zhou is in [place] and her daughter Shruthi is in [place] but we are all close and they have contacted me a few times today. P: home if stable for same. DCP team will be following. CM Discharge Assessment Start: 07/12/20 15:40 Freq: Status: Active Protocol: Document 07/12/20 15:41 ITV (Rec: 07/12/20 15:43 ITV [id number]) Discharge Planning Assessment Advance Directives? Yes Advance Directives on File Yes History Provided By Patient,Medical Record Prior Living Arrangements Apartment/Condo Comment across from [facility]. Household Members none Independent with ADL's Yes Is patient alert and oriented? Yes DME Already Rented / Owned FWW / Walker,Other Comment has bars in bathroom for mobility assist. Has a walker but currently uses no assistive device. Review Status In Process
--- NOTE | 2020-07-12 16:25 | PM.HP.1 ---
History of Present Illness History of Present Illness Date Patient Seen: 07/11/20 Chief complaint: kidney pain/aches/leg pain/hx of blood clots Narrative: Patient 75-year-old female with history of COPD, hypertension, septic kidney stone, saddle emboli presenting today with increasing shortness of breath. She was diagnosed with a saddle embolism on December 09 she was emergently transferred to [facility] were she was treated and placed on Eliquis. She remains on Eliquis. She has not been noncompliant with her Eliquis. She states that over the past few months she has been going rapidly downhill. She said that she was able to walk 3 miles per day but because of shortness of breath and fatigue his head to cut it down to 1-1/2 miles per day. She states that is now more difficult for her to go up and down inclines because of increased shortness of breath and breathing harder. She denies any chest pain palpitations lightheadedness dizziness presyncope. There has been no orthopnea. She states she just has terrible exhaustion with activity. That recently she had 18 steps to go up that she had to stop in between because of feeling very tired. She states that she could go up and down these steps multiple times but now she can only do it once. Now she has increased exhaustion after even going up the steps once and recently when she got into her house because of her severe exhaustion she had to lay down and slept for 3 hours. She said this was unusual for her. She denies myalgias or arthralgias fevers chills night sweats weight loss. She does state that her calves hurt. She is had vague mild chest discomfort that does not necessarily increased with activity and can be present at rest. There is no radiation of the discomfort. CTA scan chest done revealed a small pulmonary embolus and there was concern for the possibility of ongoing problems with pulmonary thrombo embolic disease. In the ED she was afebrile and hemodynamically stable O2 sat on room air was 96%. Her hemoglobin was 11.8 Chem panel was unremarkable. Lactate was 1.4. CK was 24. Troponin was less than 0.012. BNP was 66. She is being admitted for further evaluation of her extreme fatigue, exhaustion and decreasing exercise tolerance. Initially she will be on IV heparin for potential pulmonary embolus Patient History Medical History (Updated 07/11/20 @ 18:26 by Angi Phillip DO) Afib Ankle fracture, left Asthma COPD (chronic obstructive pulmonary disease) Depression Fibromyalgia GERD (gastroesophageal reflux disease) History of recent hospitalization History of UTI History of UTI Hyperlipidemia Hypertension Nephrolithiasis Nephrolithiasis NSTEMI (non-ST elevated myocardial infarction) Osteoarthritis Postmenopausal atrophic vaginitis Postmenopausal atrophic vaginitis Pulmonary embolism Thrombus (02/21/20) UTI (urinary tract infection) Surgical History (Updated 03/09/20 @ 12:38 by Hannah aRhman RN) History of cataract removal with insertion of prosthetic lens History of left inguinal hernia repair History of tonsillectomy Hx of cystoscopy (11/27/19) Family & Social History Family History Mother Heart failure Father Heart attack Brother Heart attack Social History: household members none Prior Living Arrangements Apartment/Condo Safety & Behavioral: Feels Safe in Current Yes Environment Been Physically Hurt or No Threatened By a Person Suicidal Ideation Description None Suicide Plan Description No Plan Tobacco & Substance use: Smoking Status Never smoker alcohol intake never alcohol intake frequency holiday/special occasion Substance Use Type does not use Meds Home Medications and Allergies Home Medications Medication Instructions Recorded Confirmed Type pantoprazole 40 mg tablet,delayed 40 mg PO DAILY 09/06/19 07/11/20 History release Qvar RediHaler 2 inh INHALATION BID 12/10/19 07/11/20 History amlodipine 10 mg PO DAILY 12/10/19 07/11/20 History apixaban 5 mg tablet 5 mg PO BID 12/19/19 07/11/20 History duloxetine 60 mg PO DAILY 03/13/20 07/11/20 History albuterol sulfate 2 puff INHALATION Q6H PRN 07/11/20 07/11/20 History rosuvastatin 10 mg PO DAILY 07/11/20 07/11/20 History Allergies Allergy/AdvReac Type Severity Reaction Status Date / Time Penicillins Allergy Unknown UNK Verified 07/11/20 13:16 procaine [From Novocain] Allergy Unknown JITTERS Verified 07/11/20 13:16 Review of Systems Review of Systems ROS: Yes All systems reviewed with the patient and are negative except as otherwise documented Exam Vital Signs (past 8 hours): - 07/12/20 08:33 07/12/20 10:00 07/12/20 12:00 Temperature 97.3 F L 98.1 F Pulse Rate 70 70 Respiratory Rate 18 18 Blood Pressure 111/71 110/79 Pulse Oximetry 94 95 96 07/12/20 15:42 07/12/20 16:00 Temperature 98.0 F Pulse Rate 78 Respiratory Rate 18 Blood Pressure 117/69 Pulse Oximetry 97 92 Oxygen Delivery Method Room Air Oxygen Flow Rate 0 Narrative Exam Narrative: Constitutional: Somewhat thin female NAD HEENT: Normocephalic atraumatic extraocular movement was intact pupils are equal round reactive fundi were not visualized sclera and conjunctiva were clear oropharynx was clear and moist Neck: Supple without thyromegaly bruits or jugular venous distention Thorax: Symmetrical expansion Respiratory: Clear to auscultation Cardiovascular: Regular rhythm S1-S2 was normal there were no loose he has rubs murmurs gallops present GI: Benign bowel sounds present : No George present Musculoskeletal: Full range of motion no clubbing edema or cyanosis Neurologic: Cranial nerves 2-12 intact motor equal active sensory modality approved touch intact Psychological: Mood slightly flat. Awake alert oriented x3 Objective Labs Result Diagrams: 07/12/20 05:10 07/11/20 13:11 Labs: Laboratory Results - last 24 hr 07/11/20 07/11/20 07/12/20 17:03 22:27 05:10 Hgb 11.8 L Hct 36.4 APTT 90 H* D SARS-CoV-2 (PCR) Negative 07/12/20 05:10 Hgb Hct APTT 78 H* SARS-CoV-2 (PCR) PROCEDURE: CT ANGIO CHEST PE PROTOCOL INDICATIONS: prior saddle pe now SOB TECHNIQUE: After the administration of intravenous contrast, 2 mm thick sections acquired from the pulmonary apices to the posterior costophrenic angles. 3-dimensional maximum intensity projection (MIP) coronal and sagittal reformats were then acquired through the thorax. For radiation dose reduction, the following was used: automated exposure control, adjustment of mA and/or kV according to patient size. COMPARISON: [facility], [place], CT ANGIO CHEST PE PROTOCOL, 12/10/2019, 10:45. FINDINGS: Image quality: Excellent. Pulmonary arteries: Previously, there was extensive central pulmonary emboli with a saddle embolus and bilateral main pulmonary artery embolus and peripheral emboli. Currently, there is only focal embolus present involving the posterior basal segment of the left lower lobe. No other pulmonary emboli identified. The chronicity of this clot is uncertain. Lungs and pleura: Minimal bibasilar dependent change. No pleural effusions or pneumothorax. Central and peripheral airways are patent. Mediastinum: Heart size is normal, without pericardial effusion. Moderate coronary artery calcifications. Normal RV/LV ratio. No mediastinal or hilar adenopathy. Thoracic aorta is normal in caliber and enhancement. Esophagus is normal in caliber, without hiatal hernia. Bones and chest wall: No suspicious bony lesions. Ribs and thoracic spine appear intact throughout. Thyroid gland is unremarkable. No axillary or supraclavicular adenopathy. Abdomen: Visualized upper abdominal solid organs appear normal in the early arterial phase of enhancement. IMPRESSION: 1. Small peripheral focal pulmonary embolus, posterior basal segment of left lower lobe. The chronicity of this finding is uncertain. 2. Moderate coronary artery calcifications. Dictated by: Price Hummel M.D. on 07/11/2020 at 13:23 Approved by: Price Hummel M.D. on 07/11/2020 at 13:28 PROCEDURE: US PERIP VENOUS LOW EXTREM BI INDICATIONS: PE, leg pain TECHNIQUE: Real-time imaging, as well as color and pulse Doppler interrogation, were performed of the deep veins of both legs from the inguinal ligament to the popliteal fossa. COMPARISON: None. FINDINGS: Right: The common femoral, femoral and popliteal veins are normally compressible, and free of intraluminal thrombus. Color and pulse Doppler demonstrate normal phasic intravascular flow. There is normal augmentation response to distal compression maneuver. Left: The common femoral, femoral and popliteal veins are normally compressible, and free of intraluminal thrombus. Color and pulse Doppler demonstrate normal phasic intravascular flow. There is normal augmentation response to distal compression maneuver. IMPRESSION: Negative bilateral lower extremity duplex venous ultrasound for DVT. Dictated by: Price Hummel M.D. on 07/11/2020 at 16:59 Approved by: Price Hummel M.D. on 07/11/2020 at 17:00 ECHO Interpretation Summary The left ventricle appears normal in size and systolic function with an estimated ejection fraction of 55 to 60% without any focal wall motion abnormality and appears slightly smaller and more dynamic compared to the previous study. Diastolic function is likely normal with normal filling pressures. The right ventricle is normal in size and function. This is slightly smaller and slightly more dynamic compared to the previous study. Mitral Valve: There is mild mitral annular calcification. The mitral valve leaflets appear mildly thickened, but open well. There is mild mitral regurgitation. This is less prominent compared to the previous study. Aortic Valve: The aortic valve is trileaflet. The aortic valve opens well. There is no aortic valve stenosis. No aortic regurgitation is present. Tricuspid Valve: The tricuspid valve is normal in structure and function. There is trace tricuspid regurgitation. Pulmonary artery pressures cannot be estimated because of the lack of a measurable TR jet velocity but the IVC suggests a CVP of around 3 mmHg. This is likely lower compared to the previous study. Pulmonic Valve: The pulmonic valve leaflets are thin and pliable; valve motion is normal. There is trace pulmonic regurgitation. Assessment & Plan Assessment & Plan narrative: Pulmonary embolism Doubt that this small pulmonary embolus is the source of her extreme exhaustion decreased exercise intolerance. Will continue the IV heparin infusion for now Strongly consider discontinuing her IV heparin in the morning and resuming her Eliquis Extreme exertion fatigue and decreasing exercise tolerance She does have a history of COPD. It is unlikely that this is a factor she has no wheezing air entry is good. Also echo shows good RV systolic function which would rule out problems related to worsening COPD and subsequent development of RV dysfunction. Her echo was unremarkable for LV systolic dysfunction, valvular abnormalities that could lead to her symptoms. Her troponin was unremarkable as well. However as coronary artery disease can present with exhaustion and fatigue with exertion I will order a nuclear medicine stress test. I will also order a TSH to rule out any thyroid problems HTN Continue her amlodipine. HLD Continue her statin DVT prophylaxis: Patient is on therapeutic anticoagulation Disposition: Anticipate discharge home in 1-2 days Quality VTE Deep Vein Thrombosis/Pulmonary Embolism Present on Admission: Yes
--- NOTE | 2020-07-12 17:00 | PM.PN.1 ---
Subjective Subjective Date Patient Seen: 07/12/20 Interval history: Patient states that she is feeling much better today. She is not feeling is exhausted. Skin from the bed to the bathroom she is not as fatigued or shortness of breath. She continues to be without palpitation, lightheadedness, dizziness, nausea vomiting, diarrhea, chest pain, abdominal pain. Exam Vital Signs (past 8 hours): - 07/12/20 10:00 07/12/20 12:00 07/12/20 15:42 Temperature 98.1 F Pulse Rate 70 Respiratory Rate 18 Blood Pressure 110/79 Pulse Oximetry 95 96 97 07/12/20 16:00 Temperature 98.0 F Pulse Rate 78 Respiratory Rate 18 Blood Pressure 117/69 Pulse Oximetry 92 Oxygen Delivery Method Room Air Oxygen Flow Rate 0 Narrative Exam Narrative: Constitutional: Somewhat thin female NAD HEENT: Normocephalic atraumatic extraocular movement was intact pupils are equal round reactive fundi were not visualized sclera and conjunctiva were clear oropharynx was clear and moist Neck: Supple without thyromegaly bruits or jugular venous distention Thorax: Symmetrical expansion Respiratory: Clear to auscultation Cardiovascular: Regular rhythm S1-S2 was normal there were no loose he has rubs murmurs gallops present GI: Benign bowel sounds present : No George present Musculoskeletal: Full range of motion no clubbing edema or cyanosis Neurologic: Cranial nerves 2-12 intact motor equal active sensory modality approved touch intact Psychological: Mood slightly flat. Awake alert oriented x3 Objective Labs Result Diagrams: 07/12/20 05:10 07/11/20 13:11 Labs: Laboratory Results - last 24 hr 07/11/20 07/11/20 07/12/20 17:03 22:27 05:10 Hgb 11.8 L Hct 36.4 APTT 90 H* D SARS-CoV-2 (PCR) Negative 07/12/20 05:10 Hgb Hct APTT 78 H* SARS-CoV-2 (PCR) [facility] Medical History (Updated 07/11/20 @ 18:26 by Angi Phillip DO) Afib Ankle fracture, left Asthma COPD (chronic obstructive pulmonary disease) Depression Fibromyalgia GERD (gastroesophageal reflux disease) History of recent hospitalization History of UTI History of UTI Hyperlipidemia Hypertension Nephrolithiasis Nephrolithiasis NSTEMI (non-ST elevated myocardial infarction) Osteoarthritis Postmenopausal atrophic vaginitis Postmenopausal atrophic vaginitis Pulmonary embolism Thrombus (02/21/20) UTI (urinary tract infection) Surgical History (Updated 03/09/20 @ 12:38 by Hannah Rahman RN) History of cataract removal with insertion of prosthetic lens History of left inguinal hernia repair History of tonsillectomy Hx of cystoscopy (11/27/19) Family History Mother Heart failure Father Heart attack Brother Heart attack Social History household members: none Smoking Status: Never smoker alcohol intake: never Assessment & Plan Assessment & Plan narrative: Pulmonary embolism Doubt that there is an acute problem with pulmonary embolus is the source of her extreme exhaustion decreased exercise intolerance. I will discontinue her IV heparin infusion Resume her home Eliquis Extreme exertion fatigue and decreasing exercise tolerance She does have a history of COPD. It is unlikely that this is a factor she has no wheezing and air entry is good. Also echo shows good RV systolic function which would rule out problems related to worsening COPD and subsequent development of RV dysfunction. Her echo was unremarkable for LV systolic dysfunction, valvular abnormalities that could lead to her symptoms. Her troponin was unremarkable as well. However as coronary artery disease can present with exhaustion and fatigue with exertion I will order a nuclear medicine stress test. I will also order a TSH to rule out any thyroid problems HTN Continue her amlodipine. HLD Continue her statin DVT prophylaxis: Patient is on therapeutic anticoagulation Disposition: Anticipate discharge home in 1 after nuclear medicine stress test if negative Quality VTE Deep Vein Thrombosis/Pulmonary Embolism Present on Admission: Yes
--- NOTE | 2020-07-12 19:46 | PC.NURSE ---
patient is asking for Dr. Varghese or the attending provider to read her pulmonary report from February 182019 from [facility]. Patient reports she has a video appt with [facility] tomorrow with her daughter and was req. this evening if medical records could be faxed over. Patient is aware that no one in medical records avail to fax, but daughter can call first thing in am and inquire about a stat req. of records to be sent to [facility].
[2020-07-12] MEDS: APIXABAN 5 MG TABLET PO (21:18)
[2020-07-13] VITALS (9 sets, daily range): BP systolic 114–136; BP diastolic 73–80; PULSE 69–76; RESP 12–18; TEMP 36.1–37.1; O2SAT 93–99
[2020-07-13 04:44] LABS: Add Manual Diff / Slide Review NO; Basophils Absolute Auto 100 /uL (0-100); Basophils Percent Auto 0.9 % (0-2); Eosinophils Absolute Auto 200 /uL (0-450); Eosinophils Percent Auto 2.1 % (2-4); Hematocrit 35.9 % (36-46); Hemoglobin 11.5 g/dL (12.0-16.0); Lymphocytes Absolute Auto 2300 /uL (1100-4500); Lymphocytes Percent Auto 30.4 % (25-40); Mean Corpuscular HGB Conc 32.2 % (30-36); Mean Corpuscular Hemoglobin 24.5 PG (26-34); Mean Corpuscular Volume 76.3 fL (80-100); Monocytes Absolute Auto 700 /uL (0-900); Monocytes Percent Auto 9.8 % (3-14); Neutrophils Absolute Auto 4300 /uL (1500-7000); Neutrophils Percent Auto 56.8 % (50-75); Platelet Count 264 X10^3/uL (150-400); Red Cell Distribution Width 17.6 % (11.6-14.8); White Blood Cell Count 7.5 X10^3/uL (4.5-11.0)
[2020-07-13 04:49] LABS: Alanine Aminotransferase 14 IU/L (<35); Albumin 4.1 g/dL (3.5-5.0); Albumin Globulin Ratio 1.5 (1.0-2.8); Alkaline Phosphatase 91 U/L (38-126); Aspartate Aminotransferase 22 IU/L (14-36); BUN Creatinine Ratio 19.2 (6-22); Bilirubin Total 0.7 mg/dL (0.2-1.3); Blood Urea Nitrogen 19 mg/dL (7-17); Calcium 9.8 mg/dL (8.4-10.2); Carbon Dioxide 29 mmol/L (22-32); Chloride 105 mmol/L (98-107); Estimated Glomerular Filt Rate 54.7 mL/min (>60); Globulin 2.8 g/dL (1.7-4.1); Glucose 129 mg/dL (80-110); HEMOLYSIS < 15 (0-50); Potassium 4.3 mmol/L (3.4-5.1); Sodium 138 mmol/L (137-145); Total Protein 6.9 g/dL (6.3-8.2)
[2020-07-13 05:23] LABS: TSH w/ Reflex to FT4 2.67 uIU/mL (0.47-4.68)
[2020-07-13] MEDS: BECLOMETHASONE 40 MCG INH 10.6 GM 2 PUFF INH (09:17)
[2020-07-13] MEDS: SODIUM CHLORIDE 0.9% FLUSH 10 ML IV (11:48)
--- NOTE | 2020-07-13 12:06 | PC.NURSE ---
Addendum entered by Minnie Zuniga R.N. 07/13/20 12:56: PT LEFT FOR STRESS TEST AT 1256PM AND AGAIN, REQUESTS PO RX TO BE GIVEN UPON HER RETURN AND NPO STATUS HAS BEEN MAINTAINED Original Note: PT WITH STABLE VITAL SIGNS AND IN DENIAL OF ANY PAIN- STAND BY ASSIST FOR MOBILITY. PT HAS BEEN NPO FOR PENDING STRESS TEST AND HAS REQUESTED TO WAIT UNTIL SHE HAS SOMETHING TO EAT TO TAKE HER MEDICATIONS - SHE POTENTIALLY MAY BE DISCHARGED TO HOME FOLLOWING CARDIAC STRESS TEST. AND VERBALIZES READINESS.SHE CONTINUES UPON ROOM AIR WITH ADEQUATE SATURATIONS WELL SALINE LOCK WHICH FLUSHES WELL
--- NOTE | 2020-07-13 12:30 | DI.NM.S_ITS ---
PROCEDURE: NM JASON PERF SPECT REST & STR Rest and exercise myocardial perfusion SPECT with gated imaging and ejection fraction RADIOPHARMACEUTICAL: 23.3 mCi Tc-99m sestamibi IV at peak exercise. A one day exercise stress only-protocol was performed. INDICATIONS: Exertional fatigue and exhaustion TECHNIQUE: Radiopharmaceutical was injected at peak stress test. SPECT images were obtained. SPECT myocardial perfusion images were displayed in short axis, horizontal long axis, and vertical long axis views. Gated images were reviewed using [employer] software. COMPARISON: None. CARDIAC STRESS: A standard Primo treadmill exercise tolerance test was performed by the patient under the supervision of an attending staff. The patient exercised for 6 minutes and 2 seconds; functional aerobic impairment (KAREN) is -13%. Hemodynamic data: There is normal blood pressure and heart rate response to exercise stress. Patient achieved 103% of maximum predicted heart rate at peak exercise. Symptoms: Patient denied chest pain during exercise. EKG: No diagnostic EKG changes of ischemia; frequent PVCs during recovery. FINDINGS: Raw data: There is good myocardial labeling by radiotracer. No significant motion artifacts. Hqzj-wh-zwasf ratio is 0.28 (normal is less than 0.38 for sestamibi tracer, and less than 0.50 for thallium tracer). Left ventricle function: Gated images demonstrate normal left ventricle wall thickening. No segmental wall motion abnormality. The left ventricle end-diastolic volume is 83 mL. Left ventricle stress ejection fraction is 73 ; normal values are above 45%. Myocardial perfusion: There is normal distribution of activity in the left and right ventricular myocardium. No fixed or reversible perfusion defects. IMPRESSION: Low risk, normal treadmill stress only nuclear stress test 1) No perfusion evidence of ischemia or infarction. 2) Normal left ventricular size, wall motion, and systolic function (EF post stress 73%). 3) No ECG evidence of ischemia. Frequent PVCs during recovery. 4) No angina during the study. 5) No prior nuclear stress test available for comparison. Findings discussed with Dr. Varghese on 07/13/2020 at 1725 Dictated by: Joey Rebolledo MD on 07/13/2020 at 17:26 Approved by: Joey Rebolledo MD on 07/13/2020 at 17:30
--- NOTE | 2020-07-13 13:28 | PM.TREADMILL ---
Cardiac Stress Test Report Referral & Results Date Patient Seen: 07/13/20 Time Patient Seen: 13:28 Requesting provider: Ole Varghese Indication: dyspnea Rest ECG: sinus rhythm with RBBB, ST elevation in III, aVF Procedure Note: Standard Primo protocol, 6:02, 6.1 METS Good exercise capacity, KAREN -13% Normal hemodynamic response to exercise; hypertensive at baseline No chest pain or anginal symptoms 1-1.5 ST depression in II, III,aVF, V3-V6 Frequent PVCs Impression: equivocal exercise stress test Please note: Actual ECG tracings can be found in the PACS system.
--- NOTE | 2020-07-13 17:29 | P.DS_ITS ---
History of Present Illness History of Present Illness Date Patient Seen: 07/13/20 Time Patient Seen: 17:29 Chief complaint: kidney pain/aches/leg pain/hx of blood clots Narrative: Per Dr. Varghese, Patient 75-year-old female with history of COPD, hypertension, septic kidney stone, saddle emboli presenting today with increasing shortness of breath. She was diagnosed with a saddle embolism on December 09 she was emergently transferred to [facility] were she was treated and placed on Eliquis. She remains on Eliquis. She has not been noncompliant with her Eliquis. She states that over the past few months she has been going rapidly downhill. She said that she was able to walk 3 miles per day but because of shortness of breath and fatigue his head to cut it down to 1-1/2 miles per day. She states that is now more difficult for her to go up and down inclines because of increased shortness of breath and breathing harder. She denies any chest pain palpitations lightheadedness dizziness presyncope. There has been no orthopnea. She states she just has terrible exhaustion with activity. That recently she had 18 steps to go up that she had to stop in between because of feeling very tired. She states that she could go up and down these steps multiple times but now she can only do it once. Now she has increased exhaustion after even going up the steps once and recently when she got into her house because of her severe exhaustion she had to lay down and slept for 3 hours. She said this was unusual for her. She denies myalgias or arthralgias fevers chills night sweats weight loss. She does state that her calves hurt. She is had vague mild chest discomfort that does not necessarily increased with activity and can be present at rest. There is no radiation of the discomfort. CTA scan chest done revealed a small pulmonary embolus and there was concern for the possibility of ongoing problems with pulmonary thrombo embolic disease. In the ED she was afebrile and hemodynamically stable O2 sat on room air was 96%. Her hemoglobin was 11.8 Chem panel was unremarkable. Lactate was 1.4. CK was 24. Troponin was less than 0.012. BNP was 66. She is being admitted for further evaluation of her extreme fatigue, exhaustion and decreasing exercise tolerance. Initially she will be on IV heparin for potential pulmonary embolus Discharge Providers Provider Date of admission: 07/11/20 16:33 Discharge Date: 07/13/20 Primary care physician: Alejandra Palencia MD Discharge provider: Humberto Guzman DO Summary Hospital Course Discharge Diagnosis: 1. Pulmonary embolism, chronic, present on admission 2. Decreased exercise tolerance and exertional fatigue, present on admission 3. HTN, chronic 4. HLD, chronic 5. history of COPD Hospital Course: Araceli Myers is a 75-year-old female with a past medical history hypertension, hyperlipidemia, COPD and recent saddle embolism who was admitted for further evaluation dyspnea and fatigue on exertion. Her CT angiogram revealed improved pulmonary emboli, she was initially started on a heparin infusion in the emergency room but this was quickly changed to her home Eliquis. She does have a history of COPD, however she was not wheezing and had good air movement on exam. Echocardiogram was performed which showed no right-sided heart failure or evidence of pulmonary hypertension. There was also no evidence systolic dysfunction or valvular abnormalities. Her troponin was negative. Given her persistent symptoms and nuclear stress test was performed which was deemed low risk. After completion of her nuclear stress testing she was discharged home with planned follow-up with her maintenance department technician at [facility] for further evaluation. No medication changes were recommended upon discharge. Exam Vital Signs (past 8 hours): - 07/13/20 12:00 07/13/20 12:03 07/13/20 15:37 Temperature 96.9 F L 98.8 F Pulse Rate 76 76 Respiratory Rate 18 17 Blood Pressure 118/80 114/75 Pulse Oximetry 96 93 97 Oxygen Delivery Method Room Air Oxygen Flow Rate 0 Narrative Exam Narrative: Constitutional: Somewhat thin female NAD HEENT: Normocephalic atraumatic extraocular movement was intact pupils are equal round reactive fundi were not visualized sclera and conjunctiva were clear oropharynx was clear and moist Neck: Supple without thyromegaly bruits or jugular venous distention Thorax: Symmetrical expansion Respiratory: Clear to auscultation Cardiovascular: Regular rhythm S1-S2 was normal there were no loose he has rubs murmurs gallops present GI: Benign bowel sounds present : No George present Musculoskeletal: Full range of motion no clubbing edema or cyanosis Neurologic: Cranial nerves 2-12 intact motor equal active sensory modality approved touch intact Psychological: Mood slightly flat. Awake alert oriented x3 Objective Labs Result Diagrams: 07/13/20 04:18 07/13/20 04:18 Labs: Laboratory Results - last 24 hr 07/13/20 07/13/20 07/13/20 04:18 04:18 04:18 WBC 7.5 RBC 4.70 Hgb 11.5 L Hct 35.9 L MCV 76.3 L MCH 24.5 L MCHC 32.2 RDW 17.6 H Plt Count 264 Neut % (Auto) 56.8 Lymph % (Auto) 30.4 [place] % (Auto) 9.8 Eos % (Auto) 2.1 Baso % (Auto) 0.9 Neut # (Auto) 4300 Lymph # (Auto) 2300 [place] # (Auto) 700 Eos # (Auto) 200 Baso # (Auto) 100 Sodium 138 Potassium 4.3 Chloride 105 Carbon Dioxide 29 BUN 19 H Creatinine 0.99 Estimated GFR 54.7 L BUN/Creatinine Ratio 19.2 Glucose 129 H Calcium 9.8 Total Bilirubin 0.7 AST 22 ALT 14 Alkaline Phosphatase 91 Total Protein 6.9 Albumin 4.1 Globulin 2.8 Albumin/Globulin Ratio 1.5 TSH 2.67 [facility] Medical History (Updated 07/11/20 @ 18:26 by Angi Phillip DO) Afib Ankle fracture, left Asthma COPD (chronic obstructive pulmonary disease) Depression Fibromyalgia GERD (gastroesophageal reflux disease) History of recent hospitalization History of UTI History of UTI Hyperlipidemia Hypertension Nephrolithiasis Nephrolithiasis NSTEMI (non-ST elevated myocardial infarction) Osteoarthritis Postmenopausal atrophic vaginitis Postmenopausal atrophic vaginitis Pulmonary embolism Thrombus (02/21/20) UTI (urinary tract infection) Surgical History (Updated 03/09/20 @ 12:38 by Hannah Rahman RN) History of cataract removal with insertion of prosthetic lens History of left inguinal hernia repair History of tonsillectomy Hx of cystoscopy (11/27/19) Family History Mother Heart failure Father Heart attack Brother Heart attack Social History household members: none Smoking Status: Never smoker alcohol intake: never Discharge Plan Discharge Plan Patient Disposition: Home Provider Discharge Comment: You were admitted to the hospital with chest pain, dyspnea on exertion. This may be due to your PE, however given your continued symptoms further evaluation with stress testing was performed. This was ultimately deemed low risk for ischemia (normal). I recommend continued follow up with your maintenance department technician for continued evaluation. No medication changes are recommended. Discharge orders & Medications Prescriptions: Continued pantoprazole 40 mg tablet,delayed release (DR/EC) 40 mg PO DAILY RF: 0 duloxetine 60 mg capsule,delayed release(DR/EC) 60 mg PO DAILY RF: 0 albuterol sulfate 90 mcg/actuation Hfa Aerosol Inhaler 2 puff INHALATION Q6H PRN (Reason: Shortness Of Breath) RF: 0 rosuvastatin 10 mg Tablet 10 mg PO DAILY RF: 0 Qvar RediHaler 40 mcg/actuation HFA aerosol breath activated 2 inh INHALATION BID RF: 0 amlodipine 5 mg Tablet 10 mg PO DAILY RF: 0 apixaban 5 mg tablet 5 mg PO BID RF: 0 Follow up/Referrals: Alejandra Palencia MD [Primary Care Provider] - Diet/Activity/Treatments Diet: Diet as Tolerated Activity: As tolerated Visit Report/Discharge Packet Instructions: DI for Atypical Chest Pain Discharge Data Primary Care Provider: Alejandra Palencia Attending Provider: Ole Varghese VTE Deep Vein Thrombosis/Pulmonary Embolism Present on Admission: Yes
--- NOTE | 2020-07-13 18:57 | PC.NURSE ---
Patient with discharge orders, discharge paperwork read over to patient and given. Patient denied any valuables in the safe or meds in our pharmacy. Patient refused to take wheelchair down to transportation, this RN walked with her down to the ED exit.
--- NOTE | 2020-07-17 11:03 | PC.NURSE ---
Late Entry; Heparin drip initiated /6 at 16:37, stopped per MD order at 12:43.
== END 2020-07-13 18:40 | disposition home or self-care (01) ==
LOC: ED 12:58 → AC 16:34
PROVIDERS: Admitting Provider Internal Medicine; Emergency Provider Emergency Medicine; PCP Family Medicine; Referring Provider Emergency Medicine; Visit Provider Internal Medicine
DX: I27.82 Chronic pulmonary embolism (principal); T73.3XXA Exhaustion due to excessive exertion, initial encounter; J44.9 Chronic obstructive pulmonary disease, unspecified; I10 Essential (primary) hypertension; E78.5 Hyperlipidemia, unspecified; I48.91 Unspecified atrial fibrillation; K21.9 Gastro-esophageal reflux disease without esophagitis; F32.9 Major depressive disorder, single episode, unspecified; Z79.01 Long term (current) use of anticoagulants; Z20.822 Contact with and (suspected) exposure to COVID-19; R51.9 Headache, unspecified
CPT/HCPCS: 36415; 70450; 71045; 71275; 78452; 80053; 81001; 82550; 83605; 83880; 84145; 84443; 84484; 85014; 85018; 85025; 85610; 85730; 87040; 87635; 93005; 93017; 93306; 93970; 94640; 94762; 96365; 96366; 96375; 99284; C9803; G0378; A9270; A9502; J1644; Q9967

== ENCOUNTER → 2020-10-14 08:30 | Outpatient (CLI) | payer MEDICARE, OTHER, SELFPAY ==
[2020-07-11 19:07] VITALS: BMI 29.7
== END ==
PROVIDERS: PCP Family Medicine; Visit Provider Physician Assistant
DX: N39.0 Urinary tract infection, site not specified (principal)
CPT/HCPCS: 87086